=== PATIENT | female | born 1950 | race African-American/Black ===

== ENCOUNTER 2017-01-27 08:24 | Inpatient (IN) | payer MEDICARE, OTHER ==
[~2017-01-27] VITALS: Ht 152.4 cm; Wt 72.6 kg
[~2017-01-27 08:24] MED LIST: AMPI3VIA5 IV; BISA10SU55 RC; FERR324T2 PO; INSU100I13 SQ; LEVO75TA5 PO; MAGN400O4 PO; MELA3TAB PO; METR500T PO; MIRT15TA3 PO; MULT1TAB97 PO; NA P133E2 RC; ONDA-35 PO; OXYC20TA34 PO; OXYC5CAP3 PO; PANT40TA5 PO; SENN-6 PO; ZOLP5TAB5 PO
--- NOTE | 2017-01-27 08:57 | PHYS DOC ---
Past Medical History Past Medical History: Diabetes-Type II, Hypothyroid, MRSA, Other Additional Past Medical Histor: OSTEOMYELITIS,CKD,C-DIFF,DYSPHAGIA Past Surgical History: Knee Replacement, Other Additional Past Surgical Histo: TOE AMPUTATION Alcohol Use: None Drug Use: None Adult General Chief Complaint Chief Complaint: HYPOGLYCEMIA HPI HPI 66-year-old female presents with an episode of altered mental status and hypoglycemia. Glucose in the field was 30 the patient was not responding to sternal rub. Glucagon was given an IV axis cannot be obtained. Upon arrival patient is acutely altered and does not have an IV. Multiple attempts were made and unsuccessful for IV access and so a sternal IO was obtained and a amp of D50 was given. Patient became responsive shortly after this and is now able to answer some questions but does appear somewhat confused as well. Eyes any specific complaints. Patient does have history of renal failure and is a known brittle diabetic that is had recurrent issues controlling her blood sugar. Her lab her nursing facility less than she had no elevated blood glucose in the 400s and was given 8 extra units of her insulin regimen. Review of Systems Review of Systems 10 point review of systems is unable to obtain secondary to underlying mental status. Current Medications Current Medications Current Medications Medications (Trade) Dose Ordered Sig/Alphonse Start Time Stop Time Status Last Admin Dose Admin Dextrose 1,000 ml @ 75 mls/hr 1X ONCE 01/27/17 10:00 01/27/17 23:19 Cancel Dextrose 25 gm 25 gm 1X ONCE 01/27/17 10:00 01/27/17 10:01 DC 01/27/17 10:06 25 GM Dextrose/Sodium Chloride (Iv D5% - 1/2 NS) 1,000 ml @ 125 mls/hr 1X ONCE 01/27/17 10:15 01/27/17 18:14 01/27/17 10:09 125 MLS/HR Allergies Allergies Allergies Coded Allergies Type Severity Reaction Last Updated Verified Sulfa (Sulfonamide Antibiotics) Allergy Intermediate 06/26/16 Yes iodine Allergy Intermediate 06/26/16 Yes codeine Adverse Reaction Intermediate Itching 06/26/16 Yes Physical Exam Physical Exam Constitutional: Confused, altered mental status, no acute distress. [] HENT: Normocephalic, atraumatic, bilateral external ears normal, oropharynx moist, no oral exudates, nose normal. [] Eyes: PERRLA, EOMI, conjunctiva normal, no discharge. [] Neck: Normal range of motion, no tenderness, supple, no stridor. [] Cardiovascular:Heart rate regular rhythm, no murmur [] Lungs & Thorax: Bilateral breath sounds clear to auscultation [] Abdomen: Bowel sounds normal, soft, no tenderness, no masses, no pulsatile masses. [] Skin: Warm, dry, no erythema, no rash. [] Back: No tenderness, no CVA tenderness. [] Extremities: No tenderness, no cyanosis, no clubbing, ROM intact, no edema. [] Neurologic: Alert and oriented X 1 (person), normal motor function, normal sensory function, no focal deficits noted. [] Psychologic: Affect normal, judgement normal, mood normal. [] Current Patient Data Vital Signs Vital Signs Date Time Temp Pulse Resp B/P Pulse Ox O2 Delivery O2 Flow Rate FiO2 01/27/17 08:24 97.4 84 14 150/66 98 Room Air 97.4 Lab Values Laboratory Tests Test 01/27/17 09:30 01/27/17 10:14 White Blood Count 14.5x10^3/uL (4.0-11.0) H Red Blood Count 3.30x10^6/uL (3.50-5.40) L Hemoglobin 9.7g/dL (12.0-15.5) L Hematocrit 31.3% (36.0-47.0) L Mean Corpuscular Volume 95fL (79-100) Mean Corpuscular Hemoglobin 29pg (25-35) Mean Corpuscular Hemoglobin Concent 31g/dL (31-37) Red Cell Distribution Width 13.6% (11.5-14.5) Platelet Count 244x10^3/uL (140-400) Neutrophils (%) (Auto) 89% (31-73) H Lymphocytes (%) (Auto) 6% (24-48) L Monocytes (%) (Auto) 4% (0-9) Eosinophils (%) (Auto) 1% (0-3) Basophils (%) (Auto) 0% (0-3) Neutrophils # (Auto) 12.9x10^3uL (1.8-7.7) H Lymphocytes # (Auto) 0.9x10^3/uL (1.0-4.8) L Monocytes # (Auto) 0.6x10^3/uL (0.0-1.1) Eosinophils # (Auto) 0.1x10^3/uL (0.0-0.7) Basophils # (Auto) 0.1x10^3/uL (0.0-0.2) Platelet Estimate Pending Sodium Level 141mmol/L (136-145) Potassium Level 5.3mmol/L (3.5-5.1) H Chloride Level 109mmol/L (98-107) H Carbon Dioxide Level 23mmol/L (21-32) Anion Gap 9 (6-14) Blood Urea Nitrogen 26mg/dL (7-20) H Creatinine 1.8mg/dL (0.6-1.0) H Estimated GFR (Cockcroft-Gault) 34.3 BUN/Creatinine Ratio 14 (6-20) Glucose Level 93mg/dL (70-99) Calcium Level 8.4mg/dL (8.5-10.1) L Total Bilirubin 0.2mg/dL (0.2-1.0) Aspartate Amino Transferase (AST) 59U/L (15-37) H Alanine Aminotransferase (ALT) 55U/L (14-59) Alkaline Phosphatase 200U/L (46-116) H Troponin I Quantitative 0.041ng/mL (0.000-0.055) Total Protein 6.0g/dL (6.4-8.2) L Albumin 2.3g/dL (3.4-5.0) L Albumin/Globulin Ratio 0.6 (1.0-1.7) L Urine Collection Type U cath Urine Color Yellow Urine Clarity Clear Urine pH 6.0 Urine Specific Elizabeth 1.010 Urine Protein Negativemg/dL (NEG-TRACE) Urine Glucose (UA) Negativemg/dL (NEG) Urine Ketones (Stick) Negativemg/dL (NEG) Urine Blood Small (NEG) Urine Nitrite Positive (NEG) Urine Bilirubin Negative (NEG) Urine Urobilinogen Dipstick 0.2mg/dL (0.2 mg/dL) Urine Leukocyte Esterase Moderate (NEG) Urine RBC 0/HPF (0-2) Urine WBC 20-40/HPF (0-4) Urine Squamous Epithelial Cells Few/LPF Urine Bacteria Many/HPF (0-FEW) Laboratory Tests 01/27/17 09:30 Laboratory Tests 01/27/17 09:30 EKG EKG EKG as interpreted by me shows a sinus rhythm with a leftward axis of approximate rate of 74 bpm. There are no acute findings seen on this EKG. Does not appear to be any signs of overt ischemia. Intervals are normal. There is no ectopy. Radiology/Procedures Radiology/Procedures Portable one view as interpreted by the radiologist demonstrates small inspiration with opacities on the right which may be atelectasis. Course & Med Decision Making Course & Med Decision Making Pertinent Labs and Imaging studies reviewed. (See chart for details) 66 old female who comes in acutely with altered mental status and low blood glucose was given a humeral IO for D50 administration. Her metastases status improved significantly after this. Patient probably does have history of brittle diabetes and episodes of hypoglycemia that have required admission for. We will continue to obtain access on this patient and obtain full laboratory workup. Apparently from the assisted living facility, she has not noted blood glucose last evening and she was given 8 extra units of her and normal insulin regimen which is likely the source of her hypoglycemia. Approximately 30 minutes of critical care time were used on this patient. This 66 old female has a laboratory workup that does show an elevated white count. Her urinalysis does show signs of infections with positive nitrites. Her metabolic panel shows a slightly elevated potassium of 5.3 but there are no EKG changes with this. Her renal function slightly abnormal but she has history of this. Her mental status decreased somewhat once while in the department and a repeat blood sugar was found to be in the 60s. Another amp of D50 was given. Patient wasn't started on D5 half-normal saline at 125 mL an hour. An attempt to transfer the patient to [facility] was ultimately unsuccessful as they had no available isolated beds for her ongoing C. difficile infection. I Indicated this all to the hospitalist, Dr. lopez who agreed to accept the patient for further evaluation and treatment. PICC line team was able to come down to the ER and attempt PICC line. Repeat blood glucose upon admission was in the 150s. Patient was able to successfully drink when she was sent have several bites of a meal. I believe her difficult to control blood glucose levels is related to her ongoing infection in her urine as well as C. difficile and the over calculation of insulin overnight for elevated blood glucose at her living facility. Dragon Disclaimer Dragon Disclaimer This electronic medical record was generated, in whole or in part, using a voice recognition dictation system. Critical Care Time Critical care time was 30 minutes exclusive of procedures. Departure Departure Impression: Primary Impression: Hypoglycemia Additional Impressions: Altered mental state UTI (urinary tract infection) Disposition: ADMITTED INPATIENT Admitting Physician: Su Lopez Condition: STABLE Referrals: TANVI MORILLO (PCP) Problem Qualifiers ABDIFATAH MCDOWELL DO Jan 27, 2017 08:57
[2017-01-27 09:37] LABS: BASO # 0.1 x10^3/uL (0.0-0.2); BASO % 0 % (0-3); EOS % 1 % (0-3); HEMATOCRIT 31.3 % (36.0-47.0); HEMOGLOBIN 9.7 g/dL (12.0-15.5); LYMPH # 0.9 x10^3/uL (1.0-4.8); LYMPH % 6 % (24-48); MEAN CORPUSCULAR HEMOGLOBIN 29 pg (25-35); MEAN CORPUSCULAR HGB CONC 31 g/dL (31-37); MEAN CORPUSCULAR VOLUME 95 fL (79-100); MONO % 4 % (0-9); NEUT % 89 % (31-73); PLATELET COUNT 244 x10^3/uL (140-400); RED CELL DISTRIBUTION WIDTH 13.6 % (11.5-14.5); WHITE BLOOD COUNT 14.5 x10^3/uL (4.0-11.0)
--- NOTE | 2017-01-27 09:44 | RAD ---
EXAM: Chest one view. HISTORY: Altered mental status. COMPARISON: 05/26/2016. FINDINGS: A frontal view of the chest is obtained. The inspiration is small with bibasilar atelectasis. An opacity in the right upper lobe and also be atelectasis. The right hilum is prominent but unchanged, likely a prominent pulmonary artery. There is no pneumothorax or pleural effusion. The heart is not enlarged. The aorta is tortuous. There are postsurgical changes and vertebroplasty changes along the upper abdomen. IMPRESSION: 1. Small inspiration. Opacities on the right may be atelectasis in this setting. Correlate for evidence of infection.
[2017-01-27 09:51] LABS: CALCIUM 8.4 mg/dL (8.5-10.1); CREATININE 1.8 mg/dL (0.6-1.0); GFR 34.3; POTASSIUM 5.3 mmol/L (3.5-5.1)
[2017-01-27 09:57] LABS: ALBUMIN 2.3 g/dL (3.4-5.0); ALBUMIN/GLOBULIN RATIO 0.6 (1.0-1.7); TOTAL BILIRUBIN 0.2 mg/dL (0.2-1.0)
[2017-01-27] MEDS ORDERED: DEXTROSE 50% 25 GM / 50ML DISP.SYRIN. IV ONE (10:00)
[2017-01-27] MEDS ORDERED: IV DEXTROSE 5% 1,000 ML IV ONE (10:00)
[2017-01-27] MEDS ORDERED: IV DEXTROSE 5 %-0.45 % NACL 500 ML IV ONE (10:00)
[2017-01-27] MEDS ORDERED: IV DEXTROSE 5 %-0.45 % NACL 1,000 ML IV ONE (10:15)
[2017-01-27 10:25] LABS: BILIRUBIN,URINE NEGATIVE (NEG); GLUCOSE,URINE NEGATIVE (NEG); NITRITE,URINE POSITIVE (NEG); PROTEIN,URINE NEGATIVE (NEG-TRACE); UROBILINOGEN,URINE 0.2 mg/dL (0.2 mg/dL)
[2017-01-27] MEDS ORDERED: ONDANSETRON PF 4 MG/2 ML VIAL. IV PRN (10:45)
[2017-01-27 10:52] LABS: RBC,URINE 0 /HPF (0-2); WBC,URINE 20-40 /HPF (0-4)
[2017-01-27 10:53] LABS: BACTERIA,URINE MANY /HPF (0-FEW); SQUAMOUS EPITHELIAL CELL,UR FEW /LPF
--- NOTE | 2017-01-27 12:07 | ACF ---
Admission Forms Criteria MENTAL STATUS CHANGE Clinical Indications for Inpatient Care (Place 'X' for any and all applicable criteria): Ongoing inpatient care may be needed for ANY ONE of the following(1)(2)(3)(5)(6) : [X]I. Suspected serious etiology (eg, medical disorder, [employer] event) of mental status change [ ]II. Danger to self or others not manageable at lower level of care [ ]III. Grave disability (eg, inability to perform self care necessary at lower level of care) [ ]IV. Agitation or inappropriate behavior interfering with care for primary condition (eg, attempting to discontinue lines or drains prematurely, unable to cooperate with respiratory care) [ ]V. Delirium [A] [D][E] as described by ANY ONE of the following(26): [ ]a) Delirium due to alcohol or sedative [F] withdrawal [ ]b) Delirium of uncertain etiology that has not responded to appropriate empiric treatment [ ]c) Delirium that prevents performance of a life-sustaining function (eg, feeding or hydrating oneself) [ ]. General contraindications and/or Inappropriate clinical situations for Observational Care in patients with Mental Status Change, when ANY ONE of the following is required: [ ]a) Prediction of prolongation of LOS based on ANY ONE of the following may be considered as a contraindication for observational care 2, 3, 4, 5, 6, 7, 8, 9, 10, 11 [ ]i) Age > 65 yrs. [ ]ii) Patient arriving by ambulance [ ]iii) Patient with high acuity [ ]iv) Patient requiring vital sign monitoring [ ]v) Patient on IV medication [ ]b) Systolic blood pressures 180mmHg 3,12 [ ]c) Patient with altered mental status including delirium and other alteration of consciousness, (3) [ ]d) Patient whose discharge disposition will be to a [facility] home or rehabilitation home should not be managed in Emergency Department Observation Unit. CMS rule requires 3 days hospital stay before such placement.3,13 [ ]e) Patient with failure to thrive due to broad array of etiologies 3,16,17 [ ]f) Inability to ambulate 3,14 Extended stay beyond goal length of stay for the primary condition may be needed until ALL of the following are present(3)(5): [ ]a) Underlying medical etiology of mental status change is absent, or has been established and adequately treated [ ]b) Danger to self or others is absent or manageable at lower level of care. [ ]c) Behavior crisis management, including physical or chemical restraints, is not required or available at lower level of car [ ]d) Substance or alcohol withdrawal is absent or manageable at lower level of care. [ ]e) Behavioral symptoms (eg, agitation, somnolence, inappropriate behavior) are absent, or are manageable at lower level of care. The original [facility] content created by [facility] has been revised. The portions of the content which have been revised are identified through the use of italic text or in bold, and [facility] has neither reviewed nor approved the modified material. All other unmodified content is copyright [facility]. Please see references footnoted in the original [facility] edition 2016 Admission Criteria Met?: Yes MARY ANN CHEN Jan 27, 2017 12:07
--- NOTE | 2017-01-27 12:52 | EKG ---
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
[2017-01-27] MEDS: ACETAMINOPHEN 325 MG TABLET. PO PRN ×2 (13:02→20:53)
[2017-01-27 14:11] LABS: % BASOS 2 % (0-3); PLT ESTIMATE ADEQUATE (ADEQUATE)
[2017-01-27 15:00] VITALS: BP 158/66
[2017-01-27] MEDS ORDERED: MAGNESIUM HYDROXIDE 2,400 MG/30 ML ORAL.SUSP. PO SCH (15:30)
[2017-01-27] MEDS ORDERED: NON FORMULARY ITEM (Melatonin 1 TAB) PO PRN (15:30)
[2017-01-27] MEDS ORDERED: DEXTROSE 50% 25 GM / 50ML DISP.SYRIN. IV PRN (15:30)
[2017-01-27] MEDS ORDERED: NON FORMULARY ITEM (Oxycodone Hcl 1 TAB) PO PRN (15:30)
[2017-01-27] MEDS ORDERED: BISACODYL 10 MG SUPP.RECT RC PRN (15:30)
[2017-01-27] MEDS ORDERED: SENNOSIDES/DOCUSATE 8.6/50MG TABLET. PO PRN (15:30)
[2017-01-27] MEDS ORDERED: GENT30OI2 TP (15:42)
[2017-01-27] MEDS ORDERED: INSU100V13 SQ (15:42)
[2017-01-27] MEDS ORDERED: HYDR-2163 PO (15:42)
[2017-01-27] MEDS ORDERED: INSU100C4 SQ (15:42)
[2017-01-27] MEDS ORDERED: VANC125S PO (15:42)
[2017-01-27] MEDS ORDERED: ACET325T21 PO (15:42)
[2017-01-27] MEDS ORDERED: FURO20TA3 PO (15:42)
[2017-01-27] MEDS ORDERED: ONDANSETRON ODT 4 MG TAB.RAPDIS PO PRN (16:00)
--- NOTE | 2017-01-27 16:02 | PDOC1 ---
History and Physical Date of Admission Date of Admission DATE: 01/27/17 TIME: 15:53 Identification/Chief Complaint Chief Complaint confusion Source Source: Caregiver, Chart review History of Present Illness History of Present Illness Ms. Nugent, is a 66-year-old female admit for new altered mental status and hypoglycemia. EMS brought her from her [facility], [facility] patient, they had no beds, no diversion.mental status improved issue w IV access, IO started in the ER for 1 amp D50 given. Pt complains of pain there. recent c. diff. will need iso, on dual therapy for infection,. she is more awake and alert on the floor, and is eating a grilled cheese sandwich Past Medical History Cardiovascular: HTN, Hyperlipidemia Pulmonary: No pertinent hx CENTRAL NERVOUS SYSTEM: Periperal neuropathy GI: GERD, Other Heme/Onc: Anemia NOS Hepatobiliary: No pertinent hx Psych: Depression Musculoskeletal: low back pain, Osteoarthritis, Swelling Infectious disease: Other Renal/: Chronic renal insuff Endocrine: Diabetes Past Surgical History Past Surgical History: Cholecystectomy, Cataract Removal, Hysterectomy, Other Family History Family History: Family History Unknown Social History Smoke: No ALCOHOL: none Drugs: None Current Problem List Problem List Problems Medical Problems: (1) Altered mental state Status: Acute (2) Hypoglycemia Status: Acute (3) UTI (urinary tract infection) Status: Acute Problems: Current Medications Current Medications Current Medications Dextrose 1,000 ml @ 75 mls/hr 1X ONCE IV ; Start 01/27/17 at 10:00; Stop 01/27 at 23:19; Status Cancel Dextrose 25 gm 25 gm 1X ONCE IV Last administered on 01/27/17 10:06; Start at 10:00; Stop 01/27/17 at 10:01; Status DC Dextrose/Sodium Chloride 500 ml @ 0 mls/hr 1X ONCE IV ; Start 01/27/17 at 10:00 ; Stop 01/27/17 at 10:03; Status DC Dextrose/Sodium Chloride (Iv D5% - 1/2 NS) 1,000 ml @ 125 mls/hr 1X ONCE IV Last administered on 01/27/17 10:09; Start 01/27/17 at 10:15; Stop 01/27/17 at 18:14 Ondansetron HCl (Zofran) 4 mg PRN Q8HRS PRN IV NAUSEA/VOMITING; Start 01/27/17 at 10:45; Stop 01/28/17 at 10:44 Acetaminophen (Tylenol) 650 mg PRN Q4HRS PRN PO FEVER Last administered on 01/27t 13:02; Start 01/27/17 at 10:45; Stop 01/28/17 at 10:44 Insulin Aspart (Novolog) 0-7 UNITS TIDWMEALS SQ ; Start 01/27/17 at 17:00; Stop 01/27/17 at 17:00; Status DC Dextrose 12.5 gm PRN Q15MIN PRN IV SEE COMMENTS; Start 01/27/17 at 15:30 Ampicillin Sodium/ Sulbactam Sodium (Unasyn) 3 gm Q6HRS IV ; Start 01/27/17 at 18:00; Stop 01/27/17 at 18:00; Status DC Bisacodyl (Dulcolax Supp) 10 mg PRN DAILY PRN RC CONSTIPATION; Start 01/27/17 at 15:30; Stop 01/27/17 at 15:52; Status DC Levothyroxine Sodium (Synthroid) 75 mcg DAILY PO ; Start 01/28/17 at 09:00; Stop 01/28/17 at 09:00; Status DC Magnesium Hydroxide (Milk Of Magnesia) 2,400 mg PRN DAILY PO ; Start 01/27/17 at 15:30; Stop 01/27/17 at 15:52; Status DC Metronidazole (Flagyl) 500 mg TID PO ; Start 01/27/17 at 21:00; Stop 01/27/17 at 21:00; Status DC Mirtazapine (Remeron) 15 mg QHS PO ; Start 01/27/17 at 21:00; Stop 01/27/17 at 21:00; Status DC Pantoprazole Sodium (Protonix) 40 mg BID PO ; Start 01/27/17 at 21:00; Stop 11/03 at 21:00; Status DC Senna/Docusate Sodium (Senna Plus) 2 tab Q12HR PRN PO CONSTIPATION; Start 01/27 at 15:30; Stop 01/27/17 at 15:52; Status DC Zolpidem Tartrate (Ambien) 5 mg QHS PO ; Start 01/27/17 at 21:00; Stop 01/27/17 at 21:00; Status DC Non-Formulary Medication 324 mg DAILY PO ; Start 01/28/17 at 09:00; Stop at 09:00; Status DC Non-Formulary Medication 10 unit QHS SQ ; Start 01/27/17 at 21:00; Stop at 21:00; Status DC Non-Formulary Medication 1 tab QHS PRN PO INSOMNIA; Start 01/27/17 at 15:30; Stop 01/27/17 at 15:52; Status DC Non-Formulary Medication 1 each DAILY PO ; Start 01/28/17 at 09:00; Stop at 09:00; Status DC Non-Formulary Medication 1 tab PRN Q6HRS PRN PO NAUSEA/VOMITING; Start at 15:30; Status UNV Non-Formulary Medication 1 tab Q4HRS PRN PO PAIN; Start 01/27/17 at 15:30; Stop 01/27/17 at 15:52; Status DC Non-Formulary Medication 20 mg BID PO ; Start 01/27/17 at 21:00; Stop 01/27/17 at 21:00; Status DC Metronidazole (Flagyl) 500 mg TID PO ; Start 01/27/17 at 15:30; Status UNV Acetaminophen (Tylenol) 650 mg PRN Q4HRS PRN PO PAIN; Start 01/27/17 at 15:45; Status UNV Furosemide (Lasix) 20 mg DAILY PO ; Start 01/28/17 at 09:00; Status UNV Gentamicin Sulfate (Garamycin) 1 sharonda PRN Q8HRS PRN TP SEE COMMENTS; Start 01/27 at 15:45; Status UNV Non-Formulary Medication 1 tab PRN Q4HRS PRN PO PAIN; Start 01/27/17 at 15:45; Status UNV Non-Formulary Medication 250 mg QID PO ; Start 01/27/17 at 17:00; Status UNV Pantoprazole Sodium (Protonix) 40 mg DAILY PO ; Start 01/28/17 at 09:00; Status UNV Active Scripts Active Reported Vancomycin HCl 125 Mg/2.5 Ml Syringe 250 Mg PO QID Novolog (Insulin Aspart) 100 Unit/1 Ml Cartridge 6 Unit SQ TIDBFRMEAL Levemir (Insulin Detemir) 100 Unit/1 Ml Vial 14 Unit SQ HS Furosemide 20 Mg Tablet 20 Mg PO DAILY Hydrocodone-Apap 5-300 (Hydrocodone Bit/Acetaminophen) 1 Each Tablet 1 Tab PO PRN Q4HRS PRN Gentamicin Sulfate 0.1% Oint (Gentamicin Sulfate) 15 Gm Oint...g. 1 Sharonda TP PRN Q8HRS PRN DIRECTED BY PHYSICIAN Acetaminophen 325 Mg Tablet 650 Mg PO PRN Q4HRS PRN Milk Of Magnesia (Magnesium Hydroxide) 400 Mg/5 Ml Oral.susp 30 Ml PO PRN DAILY Ondansetron Hcl 4 Mg Tablet 1 Tab PO PRN Q12HR PRN Pantoprazole Sodium 40 Mg Tablet.dr 1 Tab PO DAILY Flagyl (Metronidazole) 500 Mg Tablet 500 Mg PO TID Allergies Allergies: Coded Allergies: Sulfa (Sulfonamide Antibiotics) (Verified Allergy, Intermediate, 06/26/16) iodine (Verified Allergy, Intermediate, 06/26/16) codeine (Verified Adverse Reaction, Intermediate, Itching, 06/26/16) ROS Review of System right arm pain from IO placed in ER General: YES: Fatigue, No: Appetite, Chills, Malaise, Night Sweats, Other PSYCHOLOGICAL ROS: YES: Memory difficulties, Obsessive thoughts Eyes: No Blurry vision, No Decreased vision, No Double vision, No Dry eyes, No Excessive tearing, No Eye Pain, No Itchy Eyes, No Loss of vision, No Other, No Photophobia, No Scotomata, No Uses contacts, No Uses glasses HEENT: No: Epistaxis, Heacaches, Hearing change, Nasal congestion, Nasal discharge, Oral lesions, Other, Sinus pain, Sneezing, Snoring, Sore Throat, Tinnitus, Vertigo, Visual Changes, Vocal changes Respiratory: No: Cough, Hemoptysis, Orthopnea, Other, Pleuritic Pain, SOB with excertion, Shortness of breath, Sputum Changes, Stridor, Tachypnea, Wheezing Cardiovascular: No Chest Pain, No Edema, No Lt Headedness, No Orthopnea, No Other, No Palpitations, No Paroxysmal Noc. Dyspnea Gastrointestinal: Yes Nausea Genitourinary: No , No , No , No , No , No , No , No Discharge, No Dysuria, No Flank Pain, No Frequency, No Hematuria, No Incontinence, No Other, No Pain, No Retention, No Urgency Musculoskeletal: Yes Joint Pain, Yes Joint Stiffness, No Gait Disturbance, No Joint Swelling, No Muscle Pain, No Muscular Weakness , No Other, No Pain In:, No Swelling In: Neurological: Yes Gait Disturbance, No Behavorial Changes, No Bowel/Bladder ControlChng, No Confusion, No Dizziness, No Headaches, No Impaired Coord/balance, No Memory Loss, No Numbness/ Tingling, No Other, No Seizures, No Speech Problems, No Tremors, No Visual Changes, No Weakness Skin: No Acne, No Dry Skin, No Eczema, No Hair Changes, No Lumps, No Mole Changes, No Mottling, No Nail Changes, No Other, No Pruritus, No Rash, No Skin Lesion Changes Physical Exam General: Alert, mild distress, moderate distress, Other (poorly oriented, follows commands) Lungs: Clear to auscultation, Normal air movement Heart: S1S2, RRR, no murmurs Abdomen: Normal bowel sounds, Soft Rectal Exam: not examined Extremities: No clubbing, Normal pulses Neuro: Normal speech, Normal tone Psych/Mental Status: Other (tangential, upset about right arm pain) Vitals Vitals Vital Signs Date Time Temp Pulse Resp B/P Pulse Ox O2 Delivery O2 Flow Rate FiO2 01/27/17 11:00 66 18 144/67 100 Room Air 01/27/17 08:24 97.4 97.4 Labs Labs Laboratory Tests Test 01/27/17 09:30 01/27/17 10:14 White Blood Count 14.5x10^3/uL (4.0-11.0) Red Blood Count 3.30x10^6/uL (3.50-5.40) Hemoglobin 9.7g/dL (12.0-15.5) Hematocrit 31.3% (36.0-47.0) Mean Corpuscular Volume 95fL (79-100) Mean Corpuscular Hemoglobin 29pg (25-35) Mean Corpuscular Hemoglobin Concent 31g/dL (31-37) Red Cell Distribution Width 13.6% (11.5-14.5) Platelet Count 244x10^3/uL (140-400) Neutrophils (%) (Auto) 89% (31-73) Lymphocytes (%) (Auto) 6% (24-48) Monocytes (%) (Auto) 4% (0-9) Eosinophils (%) (Auto) 1% (0-3) Basophils (%) (Auto) 0% (0-3) Neutrophils # (Auto) 12.9x10^3uL (1.8-7.7) Lymphocytes # (Auto) 0.9x10^3/uL (1.0-4.8) Monocytes # (Auto) 0.6x10^3/uL (0.0-1.1) Eosinophils # (Auto) 0.1x10^3/uL (0.0-0.7) Basophils # (Auto) 0.1x10^3/uL (0.0-0.2) Segmented Neutrophils % 85% (35-66) Lymphocytes % 10% (24-48) Monocytes % 3% (0-10) Basophils % 2% (0-3) Platelet Estimate Adequate (ADEQUATE) Sodium Level 141mmol/L (136-145) Potassium Level 5.3mmol/L (3.5-5.1) Chloride Level 109mmol/L (98-107) Carbon Dioxide Level 23mmol/L (21-32) Anion Gap 9 (6-14) Blood Urea Nitrogen 26mg/dL (7-20) Creatinine 1.8mg/dL (0.6-1.0) Estimated GFR (Cockcroft-Gault) 34.3 BUN/Creatinine Ratio 14 (6-20) Glucose Level 93mg/dL (70-99) Calcium Level 8.4mg/dL (8.5-10.1) Total Bilirubin 0.2mg/dL (0.2-1.0) Aspartate Amino Transf (AST/SGOT) 59U/L (15-37) Alanine Aminotransferase (ALT/SGPT) 55U/L (14-59) Alkaline Phosphatase 200U/L (46-116) Troponin I Quantitative 0.041ng/mL (0.000-0.055) Total Protein 6.0g/dL (6.4-8.2) Albumin 2.3g/dL (3.4-5.0) Albumin/Globulin Ratio 0.6 (1.0-1.7) Urine Collection Type U cath Urine Color Yellow Urine Clarity Clear Urine pH 6.0 Urine Specific Webster 1.010 Urine Protein Negativemg/dL (NEG-TRACE) Urine Glucose (UA) Negativemg/dL (NEG) Urine Ketones (Stick) Negativemg/dL (NEG) Urine Blood Small (NEG) Urine Nitrite Positive (NEG) Urine Bilirubin Negative (NEG) Urine Urobilinogen Dipstick 0.2mg/dL (0.2 mg/dL) Urine Leukocyte Esterase Moderate (NEG) Urine RBC 0/HPF (0-2) Urine WBC 20-40/HPF (0-4) Urine Squamous Epithelial Cells Few/LPF Urine Bacteria Many/HPF (0-FEW) Laboratory Tests Test 01/27/17 09:30 01/27/17 10:14 White Blood Count 14.5x10^3/uL (4.0-11.0) Red Blood Count 3.30x10^6/uL (3.50-5.40) Hemoglobin 9.7g/dL (12.0-15.5) Hematocrit 31.3% (36.0-47.0) Mean Corpuscular Volume 95fL (79-100) Mean Corpuscular Hemoglobin 29pg (25-35) Mean Corpuscular Hemoglobin Concent 31g/dL (31-37) Red Cell Distribution Width 13.6% (11.5-14.5) Platelet Count 244x10^3/uL (140-400) Neutrophils (%) (Auto) 89% (31-73) Lymphocytes (%) (Auto) 6% (24-48) Monocytes (%) (Auto) 4% (0-9) Eosinophils (%) (Auto) 1% (0-3) Basophils (%) (Auto) 0% (0-3) Neutrophils # (Auto) 12.9x10^3uL (1.8-7.7) Lymphocytes # (Auto) 0.9x10^3/uL (1.0-4.8) Monocytes # (Auto) 0.6x10^3/uL (0.0-1.1) Eosinophils # (Auto) 0.1x10^3/uL (0.0-0.7) Basophils # (Auto) 0.1x10^3/uL (0.0-0.2) Segmented Neutrophils % 85% (35-66) Lymphocytes % 10% (24-48) Monocytes % 3% (0-10) Basophils % 2% (0-3) Platelet Estimate Adequate (ADEQUATE) Sodium Level 141mmol/L (136-145) Potassium Level 5.3mmol/L (3.5-5.1) Chloride Level 109mmol/L (98-107) Carbon Dioxide Level 23mmol/L (21-32) Anion Gap 9 (6-14) Blood Urea Nitrogen 26mg/dL (7-20) Creatinine 1.8mg/dL (0.6-1.0) Estimated GFR (Cockcroft-Gault) 34.3 BUN/Creatinine Ratio 14 (6-20) Glucose Level 93mg/dL (70-99) Calcium Level 8.4mg/dL (8.5-10.1) Total Bilirubin 0.2mg/dL (0.2-1.0) Aspartate Amino Transf (AST/SGOT) 59U/L (15-37) Alanine Aminotransferase (ALT/SGPT) 55U/L (14-59) Alkaline Phosphatase 200U/L (46-116) Troponin I Quantitative 0.041ng/mL (0.000-0.055) Total Protein 6.0g/dL (6.4-8.2) Albumin 2.3g/dL (3.4-5.0) Albumin/Globulin Ratio 0.6 (1.0-1.7) Urine Collection Type U cath Urine Color Yellow Urine Clarity Clear Urine pH 6.0 Urine Specific Webster 1.010 Urine Protein Negativemg/dL (NEG-TRACE) Urine Glucose (UA) Negativemg/dL (NEG) Urine Ketones (Stick) Negativemg/dL (NEG) Urine Blood Small (NEG) Urine Nitrite Positive (NEG) Urine Bilirubin Negative (NEG) Urine Urobilinogen Dipstick 0.2mg/dL (0.2 mg/dL) Urine Leukocyte Esterase Moderate (NEG) Urine RBC 0/HPF (0-2) Urine WBC 20-40/HPF (0-4) Urine Squamous Epithelial Cells Few/LPF Urine Bacteria Many/HPF (0-FEW) VTE Prophylaxis Ordered VTE Prophylaxis Devices: No VTE Pharmacological Prophylaxi: Yes Assessment/Plan Assessment/Plan Hypoglycemia altered mental status metabolic encephalopathy Dm2, poor control UTI c. diff colitis, on PO vanc and flagyl, continue, will isolate Severe malnutirtion anemia of CKD, CKD 3 with vasomotor leukocytosis without other SIRS criteria baseline mental status unknown, but may be low, cognitive decline or early dementia better IV access ordered admit > 2 mn family requests transfer to [facility], I have been notified about this X3. No bed available. TIMBO ROLDAN MD Jan 27, 2017 16:02
[2017-01-27] MEDS: HYDROCODONE/APAP 5/325MG TABLET. PO PRN (16:17)
[2017-01-27] MEDS: FUROSEMIDE 20 MG TABLET PO SCH (16:17)
[2017-01-27] MEDS: METRONIDAZOLE 500 MG TABLET. PO SCH ×3 (16:17→21:00)
[2017-01-27] MEDS: CEFTRIAXONE SODIUM 1 GM in IV NORMAL SALINE 50ML 50 ML IV SCH (16:32)
[2017-01-27] MEDS: VANCOMYCIN 250 MG/5 ML ORAL SOLUTION. PO SCH ×2 (16:32→20:50)
[2017-01-27] MEDS: GENTAMICIN 0.1% TOPICAL OINTMENT 15GM TUBE. TP PRN (16:33)
[2017-01-27] MEDS: MORPHINE SULFATE 4 MG/ML DISP.SYRIN. IV PRN (16:52)
[2017-01-27] MEDS ORDERED: INSULIN ASPART 300 UNITS/3 ML INSULN.PEN SQ SCH (17:00)
[2017-01-27] MEDS ORDERED: SULBACTAM IV SCH (18:00)
[2017-01-27] MEDS ORDERED: AMPICILLIN IV SCH (18:00)
[2017-01-27 19:00] VITALS: BP 123/61
[2017-01-27] MEDS: IV DEXTROSE 5 %-0.45 % NACL 1,000 ML IV SCH (20:47)
[2017-01-27] MEDS ORDERED: METRONIDAZOLE 500 MG TABLET. PO SCH (21:00)
[2017-01-27] MEDS ORDERED: ZOLPIDEM 5 MG TABLET. PO SCH (21:00)
[2017-01-27] MEDS ORDERED: NON FORMULARY ITEM (Insulin Glargine,Hum.rec.anlog (Lantus Solostar) 10 UNIT) SQ SCH (21:00)
[2017-01-27] MEDS ORDERED: MIRTAZAPINE 15 MG TABLET PO SCH (21:00)
[2017-01-27] MEDS ORDERED: PANTOPRAZOLE 40 MG TABLET. PO SCH (21:00)
[2017-01-27] MEDS ORDERED: OXYCODONE HCL 20 MG PO SCH (21:00)
[2017-01-27 23:00] VITALS: BP 109/70
[2017-01-28 03:00] VITALS: BP 130/63
[2017-01-28] MEDS: MORPHINE SULFATE 4 MG/ML DISP.SYRIN. IV PRN ×3 (03:55→14:55)
[2017-01-28] MEDS: ACETAMINOPHEN 325 MG TABLET. PO PRN (04:15)
[2017-01-28 07:00] VITALS: BP 156/69
[2017-01-28 07:36] LABS: ALBUMIN 1.9 g/dL (3.4-5.0); ALBUMIN/GLOBULIN RATIO 0.6 (1.0-1.7); CALCIUM 7.6 mg/dL (8.5-10.1); CREATININE 1.6 mg/dL (0.6-1.0); GFR 39.3; TOTAL BILIRUBIN 0.3 mg/dL (0.2-1.0)
[2017-01-28 07:42] LABS: POTASSIUM 5.7 mmol/L (3.5-5.1)
--- NOTE | 2017-01-28 08:38 | PDOC ---
PROGRESS NOTES Chief Complaint Chief Complaint Altered mental status History of Present Illness History of Present Illness No acute events over nigth. Patient remains slightly confused and wishes to go home. Her family is not bedside at this time, if they continue to wish for transfer to [facility] I will be available to help. Vitals Vitals Vital Signs Date Time Temp Pulse Resp B/P Pulse Ox O2 Delivery O2 Flow Rate FiO2 01/28/17 08:12 Room Air 01/28/17 03:00 99.9 88 20 130/63 90 99.9 Physical Exam General: Alert, Cooperative, Other (slightly confused) Heart: Regular rate, No murmurs Lungs: Clear Abdomen: Soft, No tenderness Extremities: No clubbing, No edema Skin: No significant lesion, Other Labs LABS Laboratory Tests Test 01/27/17 09:00 01/27/17 09:30 01/27/17 09:55 01/27/17 10:14 Glucose (Fingerstick) 120mg/dL (70-99) 65mg/dL (70-99) White Blood Count 14.5x10^3/uL (4.0-11.0) Red Blood Count 3.30x10^6/uL (3.50-5.40) Hemoglobin 9.7g/dL (12.0-15.5) Hematocrit 31.3% (36.0-47.0) Mean Corpuscular Volume 95fL (79-100) Mean Corpuscular Hemoglobin 29pg (25-35) Mean Corpuscular Hemoglobin Concent 31g/dL (31-37) Red Cell Distribution Width 13.6% (11.5-14.5) Platelet Count 244x10^3/uL (140-400) Neutrophils (%) (Auto) 89% (31-73) Lymphocytes (%) (Auto) 6% (24-48) Monocytes (%) (Auto) 4% (0-9) Eosinophils (%) (Auto) 1% (0-3) Basophils (%) (Auto) 0% (0-3) Neutrophils # (Auto) 12.9x10^3uL (1.8-7.7) Lymphocytes # (Auto) 0.9x10^3/uL (1.0-4.8) Monocytes # (Auto) 0.6x10^3/uL (0.0-1.1) Eosinophils # (Auto) 0.1x10^3/uL (0.0-0.7) Basophils # (Auto) 0.1x10^3/uL (0.0-0.2) Segmented Neutrophils % 85% (35-66) Lymphocytes % 10% (24-48) Monocytes % 3% (0-10) Basophils % 2% (0-3) Platelet Estimate Adequate (ADEQUATE) Sodium Level 141mmol/L (136-145) Potassium Level 5.3mmol/L (3.5-5.1) Chloride Level 109mmol/L (98-107) Carbon Dioxide Level 23mmol/L (21-32) Anion Gap 9 (6-14) Blood Urea Nitrogen 26mg/dL (7-20) Creatinine 1.8mg/dL (0.6-1.0) Estimated GFR (Cockcroft-Gault) 34.3 BUN/Creatinine Ratio 14 (6-20) Glucose Level 93mg/dL (70-99) Calcium Level 8.4mg/dL (8.5-10.1) Total Bilirubin 0.2mg/dL (0.2-1.0) Aspartate Amino Transf (AST/SGOT) 59U/L (15-37) Alanine Aminotransferase (ALT/SGPT) 55U/L (14-59) Alkaline Phosphatase 200U/L (46-116) Troponin I Quantitative 0.041ng/mL (0.000-0.055) Total Protein 6.0g/dL (6.4-8.2) Albumin 2.3g/dL (3.4-5.0) Albumin/Globulin Ratio 0.6 (1.0-1.7) Urine Collection Type U cath Urine Color Yellow Urine Clarity Clear Urine pH 6.0 Urine Specific [place] 1.010 Urine Protein Negativemg/dL (NEG-TRACE) Urine Glucose (UA) Negativemg/dL (NEG) Urine Ketones (Stick) Negativemg/dL (NEG) Urine Blood Small (NEG) Urine Nitrite Positive (NEG) Urine Bilirubin Negative (NEG) Urine Urobilinogen Dipstick 0.2mg/dL (0.2 mg/dL) Urine Leukocyte Esterase Moderate (NEG) Urine RBC 0/HPF (0-2) Urine WBC 20-40/HPF (0-4) Urine Squamous Epithelial Cells Few/LPF Urine Bacteria Many/HPF (0-FEW) Test 3/12/17 10:34 01/27/17 10:49 01/27/17 13:23 01/27/17 16:38 Glucose (Fingerstick) 136mg/dL (70-99) 152mg/dL (70-99) 100mg/dL (70-99) 105mg/dL (70-99) Test 01/27/17 20:48 01/28/17 03:40 01/28/17 06:59 01/28/17 07:15 Glucose (Fingerstick) 131mg/dL (70-99) 165mg/dL (70-99) 234mg/dL (70-99) Sodium Level 139mmol/L (136-145) Potassium Level 5.7mmol/L (3.5-5.1) Chloride Level 110mmol/L (98-107) Carbon Dioxide Level 22mmol/L (21-32) Anion Gap 7 (6-14) Blood Urea Nitrogen 22mg/dL (7-20) Creatinine 1.6mg/dL (0.6-1.0) Estimated GFR (Cockcroft-Gault) 39.3 BUN/Creatinine Ratio 14 (6-20) Glucose Level 229mg/dL (70-99) Calcium Level 7.6mg/dL (8.5-10.1) Total Bilirubin 0.3mg/dL (0.2-1.0) Aspartate Amino Transf (AST/SGOT) 53U/L (15-37) Alanine Aminotransferase (ALT/SGPT) 43U/L (14-59) Alkaline Phosphatase 162U/L (46-116) Total Protein 5.0g/dL (6.4-8.2) Albumin 1.9g/dL (3.4-5.0) Albumin/Globulin Ratio 0.6 (1.0-1.7) Review of Systems Review of Systems Denies chest pain and shortness of breath. Denies fever or chills. Assessment and Plan Assessmemt and Plan Problems Medical Problems: (1) Altered mental state Status: Acute (2) Hypoglycemia Status: Acute (3) UTI (urinary tract infection) Status: Acute Hypoglycemia Altered mental status Metabolic encephalopathy Dm2, poor control UTI C. diff colitis Severe malnutrition Anemia of CKD Leukocytosis without other SIRS criteria Cognitive decline or early dementia PLAN: Added low intensity sliding scale insulin IO was removed Renal and ID have been consulted, recommendations appreciated Continue gentamicin, ceftriaxone, vanc and flagyl PT/OT to eval and treat Continue to monitor daily labs If family continues to wish for transfer to [facility], I will be happy to aid in transfer. Problems: Comment Review of Relevant I have reviewed the following items yariel (where applicable) has been applied. Labs Laboratory Tests Test 01/27/17 08:29 01/27/17 09:00 01/27/17 09:30 01/27/17 09:55 Glucose (Fingerstick) 40mg/dL (70-99) 120mg/dL (70-99) 65mg/dL (70-99) White Blood Count 14.5x10^3/uL (4.0-11.0) Red Blood Count 3.30x10^6/uL (3.50-5.40) Hemoglobin 9.7g/dL (12.0-15.5) Hematocrit 31.3% (36.0-47.0) Mean Corpuscular Volume 95fL (79-100) Mean Corpuscular Hemoglobin 29pg (25-35) Mean Corpuscular Hemoglobin Concent 31g/dL (31-37) Red Cell Distribution Width 13.6% (11.5-14.5) Platelet Count 244x10^3/uL (140-400) Neutrophils (%) (Auto) 89% (31-73) Lymphocytes (%) (Auto) 6% (24-48) Monocytes (%) (Auto) 4% (0-9) Eosinophils (%) (Auto) 1% (0-3) Basophils (%) (Auto) 0% (0-3) Neutrophils # (Auto) 12.9x10^3uL (1.8-7.7) Lymphocytes # (Auto) 0.9x10^3/uL (1.0-4.8) Monocytes # (Auto) 0.6x10^3/uL (0.0-1.1) Eosinophils # (Auto) 0.1x10^3/uL (0.0-0.7) Basophils # (Auto) 0.1x10^3/uL (0.0-0.2) Segmented Neutrophils % 85% (35-66) Lymphocytes % 10% (24-48) Monocytes % 3% (0-10) Basophils % 2% (0-3) Platelet Estimate Adequate (ADEQUATE) Sodium Level 141mmol/L (136-145) Potassium Level 5.3mmol/L (3.5-5.1) Chloride Level 109mmol/L (98-107) Carbon Dioxide Level 23mmol/L (21-32) Anion Gap 9 (6-14) Blood Urea Nitrogen 26mg/dL (7-20) Creatinine 1.8mg/dL (0.6-1.0) Estimated GFR (Cockcroft-Gault) 34.3 BUN/Creatinine Ratio 14 (6-20) Glucose Level 93mg/dL (70-99) Calcium Level 8.4mg/dL (8.5-10.1) Total Bilirubin 0.2mg/dL (0.2-1.0) Aspartate Amino Transf (AST/SGOT) 59U/L (15-37) Alanine Aminotransferase (ALT/SGPT) 55U/L (14-59) Alkaline Phosphatase 200U/L (46-116) Troponin I Quantitative 0.041ng/mL (0.000-0.055) Total Protein 6.0g/dL (6.4-8.2) Albumin 2.3g/dL (3.4-5.0) Albumin/Globulin Ratio 0.6 (1.0-1.7) Test 01/27/17 10:14 01/27/17 10:34 01/27/17 10:49 01/27/17 13:23 Urine Collection Type U cath Urine Color Yellow Urine Clarity Clear Urine pH 6.0 Urine Specific [place] 1.010 Urine Protein Negativemg/dL (NEG-TRACE) Urine Glucose (UA) Negativemg/dL (NEG) Urine Ketones (Stick) Negativemg/dL (NEG) Urine Blood Small (NEG) Urine Nitrite Positive (NEG) Urine Bilirubin Negative (NEG) Urine Urobilinogen Dipstick 0.2mg/dL (0.2 mg/dL) Urine Leukocyte Esterase Moderate (NEG) Urine RBC 0/HPF (0-2) Urine WBC 20-40/HPF (0-4) Urine Squamous Epithelial Cells Few/LPF Urine Bacteria Many/HPF (0-FEW) Glucose (Fingerstick) 136mg/dL (70-99) 152mg/dL (70-99) 100mg/dL (70-99) Test 01/27/17 16:38 01/27/17 20:48 01/28/17 03:40 01/28/17 06:59 Glucose (Fingerstick) 105mg/dL (70-99) 131mg/dL (70-99) 165mg/dL (70-99) 234mg/dL (70-99) Test 01/28/17 07:15 Sodium Level 139mmol/L (136-145) Potassium Level 5.7mmol/L (3.5-5.1) Chloride Level 110mmol/L (98-107) Carbon Dioxide Level 22mmol/L (21-32) Anion Gap 7 (6-14) Blood Urea Nitrogen 22mg/dL (7-20) Creatinine 1.6mg/dL (0.6-1.0) Estimated GFR (Cockcroft-Gault) 39.3 BUN/Creatinine Ratio 14 (6-20) Glucose Level 229mg/dL (70-99) Calcium Level 7.6mg/dL (8.5-10.1) Total Bilirubin 0.3mg/dL (0.2-1.0) Aspartate Amino Transf (AST/SGOT) 53U/L (15-37) Alanine Aminotransferase (ALT/SGPT) 43U/L (14-59) Alkaline Phosphatase 162U/L (46-116) Total Protein 5.0g/dL (6.4-8.2) Albumin 1.9g/dL (3.4-5.0) Albumin/Globulin Ratio 0.6 (1.0-1.7) Laboratory Tests Test 01/27/17 09:00 01/27/17 09:30 01/27/17 09:55 01/27/17 10:14 Glucose (Fingerstick) 120mg/dL (70-99) 65mg/dL (70-99) White Blood Count 14.5x10^3/uL (4.0-11.0) Red Blood Count 3.30x10^6/uL (3.50-5.40) Hemoglobin 9.7g/dL (12.0-15.5) Hematocrit 31.3% (36.0-47.0) Mean Corpuscular Volume 95fL (79-100) Mean Corpuscular Hemoglobin 29pg (25-35) Mean Corpuscular Hemoglobin Concent 31g/dL (31-37) Red Cell Distribution Width 13.6% (11.5-14.5) Platelet Count 244x10^3/uL (140-400) Neutrophils (%) (Auto) 89% (31-73) Lymphocytes (%) (Auto) 6% (24-48) Monocytes (%) (Auto) 4% (0-9) Eosinophils (%) (Auto) 1% (0-3) Basophils (%) (Auto) 0% (0-3) Neutrophils # (Auto) 12.9x10^3uL (1.8-7.7) Lymphocytes # (Auto) 0.9x10^3/uL (1.0-4.8) Monocytes # (Auto) 0.6x10^3/uL (0.0-1.1) Eosinophils # (Auto) 0.1x10^3/uL (0.0-0.7) Basophils # (Auto) 0.1x10^3/uL (0.0-0.2) Segmented Neutrophils % 85% (35-66) Lymphocytes % 10% (24-48) Monocytes % 3% (0-10) Basophils % 2% (0-3) Platelet Estimate Adequate (ADEQUATE) Sodium Level 141mmol/L (136-145) Potassium Level 5.3mmol/L (3.5-5.1) Chloride Level 109mmol/L (98-107) Carbon Dioxide Level 23mmol/L (21-32) Anion Gap 9 (6-14) Blood Urea Nitrogen 26mg/dL (7-20) Creatinine 1.8mg/dL (0.6-1.0) Estimated GFR (Cockcroft-Gault) 34.3 BUN/Creatinine Ratio 14 (6-20) Glucose Level 93mg/dL (70-99) Calcium Level 8.4mg/dL (8.5-10.1) Total Bilirubin 0.2mg/dL (0.2-1.0) Aspartate Amino Transf (AST/SGOT) 59U/L (15-37) Alanine Aminotransferase (ALT/SGPT) 55U/L (14-59) Alkaline Phosphatase 200U/L (46-116) Troponin I Quantitative 0.041ng/mL (0.000-0.055) Total Protein 6.0g/dL (6.4-8.2) Albumin 2.3g/dL (3.4-5.0) Albumin/Globulin Ratio 0.6 (1.0-1.7) Urine Collection Type U cath Urine Color Yellow Urine Clarity Clear Urine pH 6.0 Urine Specific [place] 1.010 Urine Protein Negativemg/dL (NEG-TRACE) Urine Glucose (UA) Negativemg/dL (NEG) Urine Ketones (Stick) Negativemg/dL (NEG) Urine Blood Small (NEG) Urine Nitrite Positive (NEG) Urine Bilirubin Negative (NEG) Urine Urobilinogen Dipstick 0.2mg/dL (0.2 mg/dL) Urine Leukocyte Esterase Moderate (NEG) Urine RBC 0/HPF (0-2) Urine WBC 20-40/HPF (0-4) Urine Squamous Epithelial Cells Few/LPF Urine Bacteria Many/HPF (0-FEW) Test 01/27/17 10:34 01/27/17 10:49 01/27/17 13:23 01/27/17 16:38 Glucose (Fingerstick) 136mg/dL (70-99) 152mg/dL (70-99) 100mg/dL (70-99) 105mg/dL (70-99) Test 01/27/17 20:48 01/28/17 03:40 01/28/17 06:59 01/28/17 07:15 Glucose (Fingerstick) 131mg/dL (70-99) 165mg/dL (70-99) 234mg/dL (70-99) Sodium Level 139mmol/L (136-145) Potassium Level 5.7mmol/L (3.5-5.1) Chloride Level 110mmol/L (98-107) Carbon Dioxide Level 22mmol/L (21-32) Anion Gap 7 (6-14) Blood Urea Nitrogen 22mg/dL (7-20) Creatinine 1.6mg/dL (0.6-1.0) Estimated GFR (Cockcroft-Gault) 39.3 BUN/Creatinine Ratio 14 (6-20) Glucose Level 229mg/dL (70-99) Calcium Level 7.6mg/dL (8.5-10.1) Total Bilirubin 0.3mg/dL (0.2-1.0) Aspartate Amino Transf (AST/SGOT) 53U/L (15-37) Alanine Aminotransferase (ALT/SGPT) 43U/L (14-59) Alkaline Phosphatase 162U/L (46-116) Total Protein 5.0g/dL (6.4-8.2) Albumin 1.9g/dL (3.4-5.0) Albumin/Globulin Ratio 0.6 (1.0-1.7) Medications Current Medications Dextrose 1,000 ml @ 75 mls/hr 1X ONCE IV ; Start 01/27/17 at 10:00; Stop 01/27 at 23:19; Status Cancel Dextrose 25 gm 25 gm 1X ONCE IV Last administered on 01/27/17 10:06; Start at 10:00; Stop 01/27/17 at 10:01; Status DC Dextrose/Sodium Chloride 500 ml @ 0 mls/hr 1X ONCE IV ; Start 01/27/17 at 10:00 ; Stop 01/27/17 at 10:03; Status DC Dextrose/Sodium Chloride (Iv D5% - 1/2 NS) 1,000 ml @ 125 mls/hr 1X ONCE IV Last administered on 01/27/17 10:09; Start 01/27/17 at 10:15; Stop 01/27/17 at 18:14; Status DC Ondansetron HCl (Zofran) 4 mg PRN Q8HRS PRN IV NAUSEA/VOMITING; Start 01/27/17 at 10:45; Stop 01/28/17 at 10:44 Acetaminophen (Tylenol) 650 mg PRN Q4HRS PRN PO FEVER Last administered on 01/28 04:15; Start 01/27/17 at 10:45; Stop 01/28/17 at 10:44 Insulin Aspart (Novolog) 0-7 UNITS TIDWMEALS SQ ; Start 01/27/17 at 17:00; Stop 01/27/17 at 17:00; Status DC Dextrose 12.5 gm PRN Q15MIN PRN IV SEE COMMENTS; Start 01/27/17 at 15:30 Ampicillin Sodium/ Sulbactam Sodium (Unasyn) 3 gm Q6HRS IV ; Start 01/27/17 at 18:00; Stop 01/27/17 at 18:00; Status DC Bisacodyl (Dulcolax Supp) 10 mg PRN DAILY PRN RC CONSTIPATION; Start 01/27/17 at 15:30; Stop 01/27/17 at 15:52; Status DC Levothyroxine Sodium (Synthroid) 75 mcg DAILY PO ; Start 01/28/17 at 09:00; Stop 01/28/17 at 09:00; Status DC Magnesium Hydroxide (Milk Of Magnesia) 2,400 mg PRN DAILY PO ; Start 01/27/17 at 15:30; Stop 01/27/17 at 15:52; Status DC Metronidazole (Flagyl) 500 mg TID PO ; Start 01/27/17 at 21:00; Stop 01/27/17 at 21:00; Status DC Mirtazapine (Remeron) 15 mg QHS PO ; Start 01/27/17 at 21:00; Stop 01/27/17 at 21:00; Status DC Pantoprazole Sodium (Protonix) 40 mg BID PO ; Start 01/27/17 at 21:00; Stop 11/03 at 21:00; Status DC Senna/Docusate Sodium (Senna Plus) 2 tab Q12HR PRN PO CONSTIPATION; Start 01/27 at 15:30; Stop 01/27/17 at 15:52; Status DC Zolpidem Tartrate (Ambien) 5 mg QHS PO ; Start 01/27/17 at 21:00; Stop 01/27/17 at 21:00; Status DC Non-Formulary Medication 324 mg DAILY PO ; Start 01/28/17 at 09:00; Stop at 09:00; Status DC Non-Formulary Medication 10 unit QHS SQ ; Start 01/27/17 at 21:00; Stop at 21:00; Status DC Non-Formulary Medication 1 tab QHS PRN PO INSOMNIA; Start 01/27/17 at 15:30; Stop 01/27/17 at 15:52; Status DC Non-Formulary Medication 1 each DAILY PO ; Start 01/28/17 at 09:00; Stop at 09:00; Status DC Ondansetron HCl (Zofran Odt) 4 mg PRN Q6HRS PRN PO NAUSEA/VOMITING; Start 01/27 at 16:00 Non-Formulary Medication 1 tab Q4HRS PRN PO PAIN; Start 01/27/17 at 15:30; Stop 01/27/17 at 15:52; Status DC Non-Formulary Medication 20 mg BID PO ; Start 01/27/17 at 21:00; Stop 01/27/17 at 21:00; Status DC Metronidazole (Flagyl) 500 mg TID PO Last administered on 01/27/17 16:17; Start 01/27/17 at 16:30 Acetaminophen (Tylenol) 650 mg PRN Q4HRS PRN PO PAIN; Start 01/27/17 at 15:45 Furosemide (Lasix) 20 mg DAILY PO Last administered on 01/27/17 16:17; Start 01/27/17 at 16:30 Gentamicin Sulfate (Garamycin) 1 sharonda PRN Q8HRS PRN TP . Last administered on 16:33; Start 01/27/17 at 21:00 Acetaminophen/ Hydrocodone Bitart (Lortab 5/325) 1 tab PRN Q4HRS PRN PO PAIN Last administered on 01/27/17 16:17; Start 01/27/17 at 16:00 Vancomycin HCl 250 mg [id number] PO Last administered on 01/27/17 20:50; Start at 17:00 Pantoprazole Sodium 40 mg 40 mg DAILYAC PO ; Start 01/28/17 at 07:30 Ceftriaxone Sodium/Sodium Chloride (Rocephin/Iv Sodium Chloride 0.9% 50ml) 50 ml @ 100 mls/hr Q24H IV Last administered on 01/27/17 16:32; Start 01/27/17 at 17:00 Morphine Sulfate 4 mg PRN Q2HR PRN IV PAIN Last administered on 01/28/17 03:55 ; Start 01/27/17 at 16:15 Oxycodone/ Acetaminophen 1 tab 1 tab PRN Q6HRS PRN PO PAIN; Start 01/27/17 at 16:15 Dextrose/Sodium Chloride (Iv D5% - 1/2 NS) 1,000 ml @ 100 mls/hr Q10H IV Last administered on 01/27/17 20:47; Start 01/28/17 at 02:15 Active Scripts Active Reported Vancomycin HCl 125 Mg/2.5 Ml Syringe 250 Mg PO QID Novolog (Insulin Aspart) 100 Unit/1 Ml Cartridge 6 Unit SQ TIDBFRMEAL Levemir (Insulin Detemir) 100 Unit/1 Ml Vial 14 Unit SQ HS Furosemide 20 Mg Tablet 20 Mg PO DAILY Hydrocodone-Apap 5-300 (Hydrocodone Bit/Acetaminophen) 1 Each Tablet 1 Tab PO PRN Q4HRS PRN Gentamicin Sulfate 0.1% Oint (Gentamicin Sulfate) 15 Gm Oint...g. 1 Sharonda TP PRN Q8HRS PRN DIRECTED BY PHYSICIAN Acetaminophen 325 Mg Tablet 650 Mg PO PRN Q4HRS PRN Milk Of Magnesia (Magnesium Hydroxide) 400 Mg/5 Ml Oral.susp 30 Ml PO PRN DAILY Ondansetron Hcl 4 Mg Tablet 1 Tab PO PRN Q12HR PRN Pantoprazole Sodium 40 Mg Tablet. 1 Tab PO DAILY Flagyl (Metronidazole) 500 Mg Tablet 500 Mg PO TID Vitals/I & O Vital Sign - Last 24 Hours 01/27/17 01/27/17 01/27/17 01/27/17 09:00 09:30 10:00 10:30 Pulse 72 68 64 64 Resp B/P 154/67 141/63 142/73 161/68 Pulse Ox 100 100 100 100 O2 Delivery Room Air Room Air Room Air Room Air 01/27/17 01/27/17 01/27/17 01/27/17 11:00 13:00 15:00 16:17 Temp 97.1 97.1 Pulse 66 68 Resp 18 22 18 B/P 144/67 158/66 Pulse Ox 100 98 98 O2 Delivery Room Air Room Air Room Air Room Air 01/27/17 01/27/17 01/27/17 01/27/17 16:52 19:00 20:00 23:00 Temp 100.9 100.6 100.9 100.6 Pulse 68 85 Resp 18 20 18 B/P 123/61 109/70 Pulse Ox 98 99 97 O2 Delivery Room Air Room Air Room Air Room Air 01/28/17 01/28/17 01/28/17 01/28/17 03:00 03:55 04:25 08:12 Temp 99.9 99.9 Pulse 88 Resp 20 B/P 130/63 Pulse Ox 90 O2 Delivery Room Air Room Air Room Air Room Air Intake and Output 01/27/17 01/27/17 01/28/17 15:00 23:00 07:00 Intake Total 720 ml 260 ml 100 ml Output Total 2 ml Balance 720 ml 258 ml 100 ml [id number] JEFF III DO Jan 28, 2017 08:38
[2017-01-28] MEDS: METRONIDAZOLE 500 MG TABLET. PO SCH ×3 (08:46→20:53)
[2017-01-28] MEDS: FUROSEMIDE 20 MG TABLET PO SCH (08:46)
[2017-01-28] MEDS: PANTOPRAZOLE 40 MG TABLET. PO SCH (08:47)
[2017-01-28] MEDS: VANCOMYCIN 250 MG/5 ML ORAL SOLUTION. PO SCH ×4 (08:49→20:54)
[2017-01-28] MEDS: OXYCODONE/APAP 5/325 TABLET. PO PRN (08:57)
[2017-01-28] MEDS ORDERED: LEVOTHYROXINE 75 MCG TABLET PO SCH (09:00)
[2017-01-28] MEDS ORDERED: MULTIVITAMIN PO SCH (09:00)
[2017-01-28] MEDS ORDERED: FERROUS GLUCONATE 324 MG PO SCH (09:00)
[2017-01-28 09:33] LABS: BASO # 0.1 x10^3/uL (0.0-0.2); BASO % 1 % (0-3); EOS % 4 % (0-3); HEMATOCRIT 30.1 % (36.0-47.0); HEMOGLOBIN 9.8 g/dL (12.0-15.5); LYMPH # 1.5 x10^3/uL (1.0-4.8); LYMPH % 19 % (24-48); MEAN CORPUSCULAR HEMOGLOBIN 30 pg (25-35); MEAN CORPUSCULAR HGB CONC 33 g/dL (31-37); MEAN CORPUSCULAR VOLUME 92 fL (79-100); MONO % 4 % (0-9); NEUT % 73 % (31-73); PLATELET COUNT 246 x10^3/uL (140-400); RED BLOOD COUNT 3.28 x10^6/uL (3.50-5.40); RED CELL DISTRIBUTION WIDTH 13.3 % (11.5-14.5); WHITE BLOOD COUNT 7.6 x10^3/uL (4.0-11.0)
[2017-01-28 11:00] VITALS: BP 140/80
[2017-01-28] MEDS ORDERED: DEXTROSE 50% 25 GM / 50ML DISP.SYRIN. IV PRN (11:00)
--- NOTE | 2017-01-28 11:48 | PDOC2 ---
CONSULT Date of Consult Date of Consult DATE: 01/28/17 TIME: 11:45 Reason for Consult Reason for Consult: [facility] AND HIGH K Referring Physician Referring Physician: JAMAR Identification/Chief Complaint Chief Complaint CONFUSION Source Source: Chart review History of Present Illness Reason for Visit: THIS IS A 66 YR OLD ADMITTED WITH WEAKNESS AND CONFUSION. SHE IS NOTED TO HAVE LOW BG AND CONFUSION. LABS SHOWED MAYNOR AND HIGH K. SHE IS ALSO NOTED TO HAVE AN UTI. CKD STAGE 3 IS NOTED WITH A CR OF 1.3 AT BASELINE Past Medical History Cardiovascular: HTN, Hyperlipidemia Pulmonary: No pertinent hx CENTRAL NERVOUS SYSTEM: Periperal neuropathy GI: GERD, Other Heme/Onc: Anemia NOS Hepatobiliary: No pertinent hx Psych: Depression Musculoskeletal: low back pain, Osteoarthritis, Swelling Infectious disease: Other Renal/: Chronic renal insuff Endocrine: Diabetes Past Surgical History Past Surgical History: Cholecystectomy, Cataract Removal, Hysterectomy, Other Family History Family History: Family History Unknown Social History No ALCOHOL: none Drugs: None Current Problem List Problem List Problems Medical Problems: (1) Altered mental state Status: Acute (2) Hypoglycemia Status: Acute (3) UTI (urinary tract infection) Status: Acute Current Medications Current Medications Current Medications Dextrose 1,000 ml @ 75 mls/hr 1X ONCE IV ; Start 01/27/17 at 10:00; Stop 01/27 at 23:19; Status Cancel Dextrose 25 gm 25 gm 1X ONCE IV Last administered on 01/27/17 10:06; Start at 10:00; Stop 01/27/17 at 10:01; Status DC Dextrose/Sodium Chloride 500 ml @ 0 mls/hr 1X ONCE IV ; Start 01/27/17 at 10:00 ; Stop 01/27/17 at 10:03; Status DC Dextrose/Sodium Chloride (Iv D5% - 1/2 NS) 1,000 ml @ 125 mls/hr 1X ONCE IV Last administered on 01/27/17 10:09; Start 01/27/17 at 10:15; Stop 01/27/17 at 18:14; Status DC Ondansetron HCl (Zofran) 4 mg PRN Q8HRS PRN IV NAUSEA/VOMITING; Start 01/27/17 at 10:45; Stop 01/28/17 at 10:44; Status DC Acetaminophen (Tylenol) 650 mg PRN Q4HRS PRN PO FEVER Last administered on 01/28t 04:15; Start 01/27/17 at 10:45; Stop 01/28/17 at 10:44; Status DC Insulin Aspart (Novolog) 0-7 UNITS TIDWMEALS SQ ; Start 01/27/17 at 17:00; Stop 01/27/17 at 17:00; Status DC Dextrose 12.5 gm PRN Q15MIN PRN IV SEE COMMENTS; Start 01/27/17 at 15:30 Ampicillin Sodium/ Sulbactam Sodium (Unasyn) 3 gm Q6HRS IV ; Start 01/27/17 at 18:00; Stop 01/27/17 at 18:00; Status DC Bisacodyl (Dulcolax Supp) 10 mg PRN DAILY PRN RC CONSTIPATION; Start 01/27/17 at 15:30; Stop 01/27/17 at 15:52; Status DC Levothyroxine Sodium (Synthroid) 75 mcg DAILY PO ; Start 01/28/17 at 09:00; Stop 01/28/17 at 09:00; Status DC Magnesium Hydroxide (Milk Of Magnesia) 2,400 mg PRN DAILY PO ; Start 01/27/17 at 15:30; Stop 01/27/17 at 15:52; Status DC Metronidazole (Flagyl) 500 mg TID PO ; Start 01/27/17 at 21:00; Stop 01/27/17 at 21:00; Status DC Mirtazapine (Remeron) 15 mg QHS PO ; Start 01/27/17 at 21:00; Stop 01/27/17 at 21:00; Status DC Pantoprazole Sodium (Protonix) 40 mg BID PO ; Start 01/27/17 at 21:00; Stop 11/03 at 21:00; Status DC Senna/Docusate Sodium (Senna Plus) 2 tab Q12HR PRN PO CONSTIPATION; Start 01/27 at 15:30; Stop 01/27/17 at 15:52; Status DC Zolpidem Tartrate (Ambien) 5 mg QHS PO ; Start 01/27/17 at 21:00; Stop 01/27/17 at 21:00; Status DC Non-Formulary Medication 324 mg DAILY PO ; Start 01/28/17 at 09:00; Stop at 09:00; Status DC Non-Formulary Medication 10 unit QHS SQ ; Start 01/27/17 at 21:00; Stop at 21:00; Status DC Non-Formulary Medication 1 tab QHS PRN PO INSOMNIA; Start 01/27/17 at 15:30; Stop 01/27/17 at 15:52; Status DC Non-Formulary Medication 1 each DAILY PO ; Start 01/28/17 at 09:00; Stop at 09:00; Status DC Ondansetron HCl (Zofran Odt) 4 mg PRN Q6HRS PRN PO NAUSEA/VOMITING; Start 01/27 at 16:00 Non-Formulary Medication 1 tab Q4HRS PRN PO PAIN; Start 01/27/17 at 15:30; Stop 01/27/17 at 15:52; Status DC Non-Formulary Medication 20 mg BID PO ; Start 01/27/17 at 21:00; Stop 01/27/17 at 21:00; Status DC Metronidazole (Flagyl) 500 mg TID PO Last administered on 01/28/17 08:46; Start 01/27/17 at 16:30 Acetaminophen (Tylenol) 650 mg PRN Q4HRS PRN PO PAIN; Start 01/27/17 at 15:45 Furosemide (Lasix) 20 mg DAILY PO Last administered on 01/28/17 08:46; Start 01/27/17 at 16:30 Gentamicin Sulfate (Garamycin) 1 sharonda PRN Q8HRS PRN TP . Last administered on 16:33; Start 01/27/17 at 21:00 Acetaminophen/ Hydrocodone Bitart (Lortab 5/325) 1 tab PRN Q4HRS PRN PO PAIN Last administered on 01/27/17 16:17; Start 01/27/17 at 16:00 Vancomycin HCl 250 mg [id number] PO Last administered on 01/28/17 08:49; Start at 17:00 Pantoprazole Sodium 40 mg 40 mg DAILYAC PO Last administered on 01/28/17 08:47 ; Start 01/28/17 at 07:30 Ceftriaxone Sodium/Sodium Chloride (Rocephin/Iv Sodium Chloride 0.9% 50ml) 50 ml @ 100 mls/hr Q24H IV Last administered on 01/27/17 16:32; Start 01/27/17 at 17:00 Morphine Sulfate 4 mg PRN Q2HR PRN IV PAIN Last administered on 01/28/17 03:55 ; Start 01/27/17 at 16:15 Oxycodone/ Acetaminophen 1 tab 1 tab PRN Q6HRS PRN PO PAIN Last administered on 01/28/17 08:57; Start 01/27/17 at 16:15 Dextrose/Sodium Chloride (Iv D5% - 1/2 NS) 1,000 ml @ 100 mls/hr Q10H IV Last administered on 01/27/17 20:47; Start 01/28/17 at 02:15 Insulin Aspart (Novolog) 0-5 UNITS TIDWMEALS SQ ; Start 01/28/17 at 12:00 Dextrose 12.5 gm PRN Q15MIN PRN IV SEE COMMENTS; Start 01/28/17 at 11:00; Status UNV Active Scripts Active Reported Vancomycin HCl 125 Mg/2.5 Ml Syringe 250 Mg PO QID Novolog (Insulin Aspart) 100 Unit/1 Ml Cartridge 6 Unit SQ TIDBFRMEAL Levemir (Insulin Detemir) 100 Unit/1 Ml Vial 14 Unit SQ HS Furosemide 20 Mg Tablet 20 Mg PO DAILY Hydrocodone-Apap 5-300 (Hydrocodone Bit/Acetaminophen) 1 Each Tablet 1 Tab PO PRN Q4HRS PRN Gentamicin Sulfate 0.1% Oint (Gentamicin Sulfate) 15 Gm Oint...g. 1 Sharonda TP PRN Q8HRS PRN DIRECTED BY PHYSICIAN Acetaminophen 325 Mg Tablet 650 Mg PO PRN Q4HRS PRN Milk Of Magnesia (Magnesium Hydroxide) 400 Mg/5 Ml Oral.susp 30 Ml PO PRN DAILY Ondansetron Hcl 4 Mg Tablet 1 Tab PO PRN Q12HR PRN Pantoprazole Sodium 40 Mg Tablet.dr 1 Tab PO DAILY Flagyl (Metronidazole) 500 Mg Tablet 500 Mg PO TID Allergies Allergies: Coded Allergies: Sulfa (Sulfonamide Antibiotics) (Verified Allergy, Intermediate, 06/26/16) iodine (Verified Allergy, Intermediate, 06/26/16) codeine (Verified Adverse Reaction, Intermediate, Itching, 06/26/16) ROS Review of System CONFUSED Physical Exam General: Alert, Cooperative HEENT: Atraumatic, PERRLA Heart: Regular rate, Normal S1, Normal S2 Abdomen: Normal bowel sounds, Soft Extremities: No clubbing Skin: No rashes Neuro: Other (CONFUSED) Psych/Mental Status: Other (CONFUSED) MUSCULOSKELETAL: No deformity Vitals VITALS Vital Signs Date Time Temp Pulse Resp B/P Pulse Ox O2 Delivery O2 Flow Rate FiO2 01/28/17 08:12 Room Air 01/28/17 07:00 97.2 78 20 156/69 97 97.2 Labs Labs Laboratory Tests Test 01/27/17 08:29 01/27/17 09:00 01/27/17 09:30 01/27/17 09:55 Glucose (Fingerstick) 40mg/dL (70-99) 120mg/dL (70-99) 65mg/dL (70-99) White Blood Count 14.5x10^3/uL (4.0-11.0) Red Blood Count 3.30x10^6/uL (3.50-5.40) Hemoglobin 9.7g/dL (12.0-15.5) Hematocrit 31.3% (36.0-47.0) Mean Corpuscular Volume 95fL (79-100) Mean Corpuscular Hemoglobin 29pg (25-35) Mean Corpuscular Hemoglobin Concent 31g/dL (31-37) Red Cell Distribution Width 13.6% (11.5-14.5) Platelet Count 244x10^3/uL (140-400) Neutrophils (%) (Auto) 89% (31-73) Lymphocytes (%) (Auto) 6% (24-48) Monocytes (%) (Auto) 4% (0-9) Eosinophils (%) (Auto) 1% (0-3) Basophils (%) (Auto) 0% (0-3) Neutrophils # (Auto) 12.9x10^3uL (1.8-7.7) Lymphocytes # (Auto) 0.9x10^3/uL (1.0-4.8) Monocytes # (Auto) 0.6x10^3/uL (0.0-1.1) Eosinophils # (Auto) 0.1x10^3/uL (0.0-0.7) Basophils # (Auto) 0.1x10^3/uL (0.0-0.2) Segmented Neutrophils % 85% (35-66) Lymphocytes % 10% (24-48) Monocytes % 3% (0-10) Basophils % 2% (0-3) Platelet Estimate Adequate (ADEQUATE) Sodium Level 141mmol/L (136-145) Potassium Level 5.3mmol/L (3.5-5.1) Chloride Level 109mmol/L (98-107) Carbon Dioxide Level 23mmol/L (21-32) Anion Gap 9 (6-14) Blood Urea Nitrogen 26mg/dL (7-20) Creatinine 1.8mg/dL (0.6-1.0) Estimated GFR (Cockcroft-Gault) 34.3 BUN/Creatinine Ratio 14 (6-20) Glucose Level 93mg/dL (70-99) Calcium Level 8.4mg/dL (8.5-10.1) Total Bilirubin 0.2mg/dL (0.2-1.0) Aspartate Amino Transf (AST/SGOT) 59U/L (15-37) Alanine Aminotransferase (ALT/SGPT) 55U/L (14-59) Alkaline Phosphatase 200U/L (46-116) Troponin I Quantitative 0.041ng/mL (0.000-0.055) Total Protein 6.0g/dL (6.4-8.2) Albumin 2.3g/dL (3.4-5.0) Albumin/Globulin Ratio 0.6 (1.0-1.7) Test 01/27/17 10:14 01/27/17 10:34 01/27/17 10:49 01/27/17 13:23 Urine Collection Type U cath Urine Color Yellow Urine Clarity Clear Urine pH 6.0 Urine Specific [place] 1.010 Urine Protein Negativemg/dL (NEG-TRACE) Urine Glucose (UA) Negativemg/dL (NEG) Urine Ketones (Stick) Negativemg/dL (NEG) Urine Blood Small (NEG) Urine Nitrite Positive (NEG) Urine Bilirubin Negative (NEG) Urine Urobilinogen Dipstick 0.2mg/dL (0.2 mg/dL) Urine Leukocyte Esterase Moderate (NEG) Urine RBC 0/HPF (0-2) Urine WBC 20-40/HPF (0-4) Urine Squamous Epithelial Cells Few/LPF Urine Bacteria Many/HPF (0-FEW) Glucose (Fingerstick) 136mg/dL (70-99) 152mg/dL (70-99) 100mg/dL (70-99) Test 01/27/17 16:38 01/27/17 20:48 01/28/17 03:40 01/28/17 06:59 Glucose (Fingerstick) 105mg/dL (70-99) 131mg/dL (70-99) 165mg/dL (70-99) 234mg/dL (70-99) Test 01/28/17 07:15 01/28/17 09:20 01/28/17 10:54 Sodium Level 139mmol/L (136-145) Potassium Level 5.7mmol/L (3.5-5.1) Chloride Level 110mmol/L (98-107) Carbon Dioxide Level 22mmol/L (21-32) Anion Gap 7 (6-14) Blood Urea Nitrogen 22mg/dL (7-20) Creatinine 1.6mg/dL (0.6-1.0) Estimated GFR (Cockcroft-Gault) 39.3 BUN/Creatinine Ratio 14 (6-20) Glucose Level 229mg/dL (70-99) Calcium Level 7.6mg/dL (8.5-10.1) Total Bilirubin 0.3mg/dL (0.2-1.0) Aspartate Amino Transf (AST/SGOT) 53U/L (15-37) Alanine Aminotransferase (ALT/SGPT) 43U/L (14-59) Alkaline Phosphatase 162U/L (46-116) Total Protein 5.0g/dL (6.4-8.2) Albumin 1.9g/dL (3.4-5.0) Albumin/Globulin Ratio 0.6 (1.0-1.7) White Blood Count 7.6x10^3/uL (4.0-11.0) Red Blood Count 3.28x10^6/uL (3.50-5.40) Hemoglobin 9.8g/dL (12.0-15.5) Hematocrit 30.1% (36.0-47.0) Mean Corpuscular Volume 92fL (79-100) Mean Corpuscular Hemoglobin 30pg (25-35) Mean Corpuscular Hemoglobin Concent 33g/dL (31-37) Red Cell Distribution Width 13.3% (11.5-14.5) Platelet Count 246x10^3/uL (140-400) Neutrophils (%) (Auto) 73% (31-73) Lymphocytes (%) (Auto) 19% (24-48) Monocytes (%) (Auto) 4% (0-9) Eosinophils (%) (Auto) 4% (0-3) Basophils (%) (Auto) 1% (0-3) Neutrophils # (Auto) 5.6x10^3uL (1.8-7.7) Lymphocytes # (Auto) 1.5x10^3/uL (1.0-4.8) Monocytes # (Auto) 0.3x10^3/uL (0.0-1.1) Eosinophils # (Auto) 0.3x10^3/uL (0.0-0.7) Basophils # (Auto) 0.1x10^3/uL (0.0-0.2) Glucose (Fingerstick) 267mg/dL (70-99) Laboratory Tests Test 01/27/17 13:23 01/27/17 16:38 01/27/17 20:48 01/28/17 03:40 Glucose (Fingerstick) 100mg/dL (70-99) 105mg/dL (70-99) 131mg/dL (70-99) 165mg/dL (70-99) Test 01/28/17 06:59 01/28/17 07:15 01/28/17 09:20 01/28/17 10:54 Glucose (Fingerstick) 234mg/dL (70-99) 267mg/dL (70-99) Sodium Level 139mmol/L (136-145) Potassium Level 5.7mmol/L (3.5-5.1) Chloride Level 110mmol/L (98-107) Carbon Dioxide Level 22mmol/L (21-32) Anion Gap 7 (6-14) Blood Urea Nitrogen 22mg/dL (7-20) Creatinine 1.6mg/dL (0.6-1.0) Estimated GFR (Cockcroft-Gault) 39.3 BUN/Creatinine Ratio 14 (6-20) Glucose Level 229mg/dL (70-99) Calcium Level 7.6mg/dL (8.5-10.1) Total Bilirubin 0.3mg/dL (0.2-1.0) Aspartate Amino Transf (AST/SGOT) 53U/L (15-37) Alanine Aminotransferase (ALT/SGPT) 43U/L (14-59) Alkaline Phosphatase 162U/L (46-116) Total Protein 5.0g/dL (6.4-8.2) Albumin 1.9g/dL (3.4-5.0) Albumin/Globulin Ratio 0.6 (1.0-1.7) White Blood Count 7.6x10^3/uL (4.0-11.0) Red Blood Count 3.28x10^6/uL (3.50-5.40) Hemoglobin 9.8g/dL (12.0-15.5) Hematocrit 30.1% (36.0-47.0) Mean Corpuscular Volume 92fL (79-100) Mean Corpuscular Hemoglobin 30pg (25-35) Mean Corpuscular Hemoglobin Concent 33g/dL (31-37) Red Cell Distribution Width 13.3% (11.5-14.5) Platelet Count 246x10^3/uL (140-400) Neutrophils (%) (Auto) 73% (31-73) Lymphocytes (%) (Auto) 19% (24-48) Monocytes (%) (Auto) 4% (0-9) Eosinophils (%) (Auto) 4% (0-3) Basophils (%) (Auto) 1% (0-3) Neutrophils # (Auto) 5.6x10^3uL (1.8-7.7) Lymphocytes # (Auto) 1.5x10^3/uL (1.0-4.8) Monocytes # (Auto) 0.3x10^3/uL (0.0-1.1) Eosinophils # (Auto) 0.3x10^3/uL (0.0-0.7) Basophils # (Auto) 0.1x10^3/uL (0.0-0.2) Assessment/Plan Assessment/Plan IMP CKD STAGE 3 WITH CR OF 1.3 AT BASELINE MAYNOR WITH CR OF 1.8 HYPERKALEMIA HYPOGLYCEMIA MET ENCEPHALOPATHY UTI ANEMIA PLAN IVF'S ANTIBIOTICS WILL FOLLOW LABS IN DANE MARTINES MD Jan 28, 2017 11:48
[2017-01-28] MEDS: IV DEXTROSE 5 %-0.45 % NACL 1,000 ML IV SCH (11:58)
[2017-01-28] MEDS: HYDROCODONE/APAP 5/325MG TABLET. PO PRN ×3 (11:59→22:05)
[2017-01-28] MEDS: INSULIN ASPART 300 UNITS/3 ML INSULN.PEN SQ SCH ×2 (12:03→17:26)
--- NOTE | 2017-01-28 12:07 | PDOC ---
Infectious Disease Note ROS ROS GEN: Denies fevers, chills, sweats HEENT: Denies blurred vision, sore throat CV: Denies chest pain RESP: Denies shortness of air, cough GI: Denies n/v/d NEURO: Denies confusion, dizziness MSK: Denies weakness, joint pain/swelling Vital Sign Vital Signs Vital Signs Date Time Temp Pulse Resp B/P Pulse Ox O2 Delivery O2 Flow Rate FiO2 01/28/17 08:12 Room Air 01/28/17 07:00 97.2 78 20 156/69 97 97.2 Physical Exam PHYSICAL EXAM GENERAL: NAD, Alert HEENT: PERRL, OC/OP NECK: Supple, no JVD, no LN LUNGS: Clear HEART: S1S2, no gallop, no murmur ABD: Soft, NT, no organomegaly, no rebound EXT: No edema, no cyanosis IRONER HAND: Alert, oriented x 3, no focal neurologic deficit SKIN: No rash IV: ok Labs Lab Laboratory Tests Test 01/27/17 13:23 01/27/17 16:38 01/27/17 20:48 01/28/17 03:40 Glucose (Fingerstick) 100mg/dL (70-99) 105mg/dL (70-99) 131mg/dL (70-99) 165mg/dL (70-99) Test 01/28/17 06:59 01/28/17 07:15 01/28/17 09:20 01/28/17 10:54 Glucose (Fingerstick) 234mg/dL (70-99) 267mg/dL (70-99) Sodium Level 139mmol/L (136-145) Potassium Level 5.7mmol/L (3.5-5.1) Chloride Level 110mmol/L (98-107) Carbon Dioxide Level 22mmol/L (21-32) Anion Gap 7 (6-14) Blood Urea Nitrogen 22mg/dL (7-20) Creatinine 1.6mg/dL (0.6-1.0) Estimated GFR (Cockcroft-Gault) 39.3 BUN/Creatinine Ratio 14 (6-20) Glucose Level 229mg/dL (70-99) Calcium Level 7.6mg/dL (8.5-10.1) Total Bilirubin 0.3mg/dL (0.2-1.0) Aspartate Amino Transf (AST/SGOT) 53U/L (15-37) Alanine Aminotransferase (ALT/SGPT) 43U/L (14-59) Alkaline Phosphatase 162U/L (46-116) Total Protein 5.0g/dL (6.4-8.2) Albumin 1.9g/dL (3.4-5.0) Albumin/Globulin Ratio 0.6 (1.0-1.7) White Blood Count 7.6x10^3/uL (4.0-11.0) Red Blood Count 3.28x10^6/uL (3.50-5.40) Hemoglobin 9.8g/dL (12.0-15.5) Hematocrit 30.1% (36.0-47.0) Mean Corpuscular Volume 92fL (79-100) Mean Corpuscular Hemoglobin 30pg (25-35) Mean Corpuscular Hemoglobin Concent 33g/dL (31-37) Red Cell Distribution Width 13.3% (11.5-14.5) Platelet Count 246x10^3/uL (140-400) Neutrophils (%) (Auto) 73% (31-73) Lymphocytes (%) (Auto) 19% (24-48) Monocytes (%) (Auto) 4% (0-9) Eosinophils (%) (Auto) 4% (0-3) Basophils (%) (Auto) 1% (0-3) Neutrophils # (Auto) 5.6x10^3uL (1.8-7.7) Lymphocytes # (Auto) 1.5x10^3/uL (1.0-4.8) Monocytes # (Auto) 0.3x10^3/uL (0.0-1.1) Eosinophils # (Auto) 0.3x10^3/uL (0.0-0.7) Basophils # (Auto) 0.1x10^3/uL (0.0-0.2) Objective Assessment Fever Hypoglycemia ? UTI with symptoms but ? contaminated UA Sulfa allergy ? reaction Heel and buttock wounds not observed as she is planning to go to did not to be disturbed Plan Plan of Care Cont Po vanc and Flagyl (may be beneficial for wounds?) Cont Rocephin F/u labs and cults Await I transfer D/w daughter # [id number] CODY WRIGHT MD Jan 28, 2017 12:07
[2017-01-28] MEDS ORDERED: LIDOCAINE 1% / SOD BICARB 8.4% 20 ML VIAL. IJ ONE ×2 (13:49→14:15)
--- NOTE | 2017-01-28 14:49 | PDOC ---
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 No IV access. Image guided Picc insertion requested. Post-Procedure Diagnosis Post-Procedure Diagnosis Same Procedure Performed Procedure Performed Sono/fluoro guided Power Picc insertion Type of Anesthesia Type of Anesthesia Local Estimated Blood Loss EBL: Minimal Drain/Tubes Drains/Tubes 5F 2L 40cm left brachial vein Power Line Condition of Patient Condition of Patient No change. No apparent complication. Disposition Disposition From IR return to [facility]. OK to use Power Picc. Full report to follow. ABRAHAN MORELAND MD Jan 28, 2017 14:49
[2017-01-28 15:00] VITALS: BP 115/70
[2017-01-28] MEDS: CEFTRIAXONE SODIUM 1 GM in IV NORMAL SALINE 50ML 50 ML IV SCH (16:31)
[2017-01-28] MEDS ORDERED: INSULIN ASPART 300 UNITS/3 ML INSULN.PEN SQ ONE (17:00)
[2017-01-28 19:00] VITALS: BP 145/46
[2017-01-28 23:00] VITALS: BP 104/58
[2017-01-29] VITALS (11 sets, daily range): BP systolic 115–146; BP diastolic 39–91
[2017-01-29] MEDS: MORPHINE SULFATE 4 MG/ML DISP.SYRIN. IV PRN ×5 (01:22→17:23)
[2017-01-29 05:50] LABS: BASO # 0.1 x10^3/uL (0.0-0.2); BASO % 2 % (0-3); EOS % 5 % (0-3); HEMATOCRIT 24.3 % (36.0-47.0); HEMOGLOBIN 7.9 g/dL (12.0-15.5); LYMPH # 1.4 x10^3/uL (1.0-4.8); LYMPH % 20 % (24-48); MEAN CORPUSCULAR HEMOGLOBIN 30 pg (25-35); MEAN CORPUSCULAR HGB CONC 33 g/dL (31-37); MEAN CORPUSCULAR VOLUME 93 fL (79-100); MONO % 9 % (0-9); NEUT % 64 % (31-73); PLATELET COUNT 194 x10^3/uL (140-400); RED BLOOD COUNT 2.62 x10^6/uL (3.50-5.40); RED CELL DISTRIBUTION WIDTH 13.5 % (11.5-14.5); WHITE BLOOD COUNT 7.1 x10^3/uL (4.0-11.0)
--- NOTE | 2017-01-29 05:52 | CONS ---
DATE OF CONSULTATION: 01/28/2017 LOCATION: The patient's room is 574. REQUESTING PHYSICIAN: Dr. Villa. REASON FOR CONSULTATION: UTI and C. diff. HISTORY OF PRESENT ILLNESS: The patient is a 66-year-old -[place] female with a history of diabetes and is undergoing care for bilateral heel and buttock wounds. She is cared for at . Apparently, she has been recently treated for C. diff colitis, but was brought to [facility] on 01/27/2017 secondary to altered mental status and hypoglycemia. She was found to have a glucose of 30. According to the notes, she did ____ not respond to sternal rub. On arrival, white blood cell count was 14.5 with 85% segs. In addition, she has been running low-grade temps as high as 100.9 axillary. Urinalysis was obtained, is somewhat suspicious, although she had a few squamous cells. It is possible she could have a UTI. She has been complaining of increased frequency, urgency as well as odor. Currently, she is lying comfortable. She and her daughter are hoping to be transferred to , feels better. Denies any fevers or chills. Her pain is controlled. No cramps or bloating. No current dysuria. PAST MEDICAL HISTORY: Positive for hypertension, hyperlipidemia, peripheral neuropathy, diabetes, depression, low back pain, chronic renal insufficiency, the above-mentioned C. diff colitis as well as her wounds. PAST SURGICAL HISTORY: Positive for cholecystectomy, cataract removal, hysterectomy and reports of previous toe amputations. REVIEW OF SYSTEMS: Otherwise negative. ALLERGIES: LISTED SULFA, BUT SHE CANNOT REMEMBER WHAT HAPPENS WHEN SHE TAKES THESE. SOCIAL HISTORY: No alcohol or drugs. FAMILY HISTORY: Noncontributory. CURRENT MEDICATIONS: Include Flagyl, oral vancomycin, Rocephin, topical gentamicin, Protonix, Ambien. Other meds are available and have been reviewed in the chart. PHYSICAL EXAMINATION: VITAL SIGNS: T-max is 100.9, currently 97.2, pulse 78, respirations 20, blood pressure 156/69. CONSTITUTIONAL: She is alert. She is in no acute distress. HEENT: Pupils are equal and reactive. NECK: Without JVD. LUNGS: Clear to auscultation. HEART: S1, S2. ABDOMEN: Obese, soft, nontender, nondistended, with positive bowel sounds. EXTREMITIES: No clubbing, cyanosis. They are heavily bandaged. SKIN: Warm to touch without signs of rash. NEUROLOGIC: She moved all extremities, was somewhat forgetful. PSYCHIATRIC: Affect was flat. LABORATORY DATA: White count 7.6, hemoglobin 9.8, platelets of 246 with a normal differential. Creatinine of 1.6, glucose 267. Cultures are pending. Chest x-ray did not have any acute process. IMPRESSION: 1. Fever. 2. Hypoglycemia. 3. Questionable urinary tract infection with symptoms, but questionable contaminated urinalysis as well. 4. Sulfa allergy, but she cannot remember the reaction. 5. Heel and buttock wounds, not observed as she is planning to go to and did not want to be disturbed. RECOMMENDATIONS: For now, continue the p.o. vancomycin as well as the Flagyl. Flagyl may be beneficial for her wounds. We will continue Rocephin. Follow up on labs and cultures. Await transfer. This was discussed with her daughter. Thank you for allowing me to participate in this patient's care. If you have any questions, please do not hesitate to contact me. CODY WRIGHT MD DR: SAVI/willie JOB#: [id number] / [id number]
[2017-01-29] MEDS: PANTOPRAZOLE 40 MG TABLET. PO SCH (05:59)
[2017-01-29 06:02] LABS: CALCIUM 7.7 mg/dL (8.5-10.1); CREATININE 1.4 mg/dL (0.6-1.0); GFR 45.8
[2017-01-29 06:03] LABS: POTASSIUM 5.3 mmol/L (3.5-5.1)
--- NOTE | 2017-01-29 06:47 | RAD ---
Ultrasound and fluoro guided power PICC placement Indication: 66-year-old diabetic female with encephalopathy, fever, heel and buttock wounds, and no peripheral IV access. Image guided PICC insertion has been requested for IV antibiotics. Fluoro time: 0.9 minutes Kerma-Area Product: 2 Gycm2 Anesthesia: Local only Sterility: All elements of maximal sterile barrier technique were utilized, including cap, mask, sterile gown, sterile gloves, large sterile sheet, appropriate hand hygiene, and 2% chlorhexidine for cutaneous antisepsis Procedure: Informed consent was obtained from the patient's daughter. She was placed supine on the angiography table. Preliminary ultrasound examination of left upper arm revealed wide patency of left brachial vein, which was documented with a hard copy ultrasound image. Left upper arm was then prepped and draped in the usual sterile fashion, utilizing all elements of maximal sterile barrier technique, as described above. Using aseptic technique, local anesthesia, direct ultrasound guidance, and the micropuncture system, successful percutaneous entry was achieved into left brachial vein at the level of mid humerus. A 5 Croatian dual lumen power PICC was trimmed to 40 cm in length, was inserted through a 5 Croatian peel-away sheath, and was easily advanced centrally under fluoroscopic control. Tip of the power PICC was positioned at upper right atrium. This was documented with a single fluoroscopic spot image. The PICC was then demonstrated to flush and aspirate normally, and was secured at the skin exit site utilizing suture and sterile dressing. The patient tolerated the procedure well without apparent complication. Impression: Successful, uneventful ultrasound and fluoro guided placement of left brachial vein 5 Croatian dual-lumen 40 cm power PICC, as described.
[2017-01-29] MEDS: FUROSEMIDE 20 MG TABLET PO SCH (08:26)
[2017-01-29] MEDS: VANCOMYCIN 250 MG/5 ML ORAL SOLUTION. PO SCH ×4 (08:26→20:28)
[2017-01-29] MEDS: METRONIDAZOLE 500 MG TABLET. PO SCH ×3 (08:26→20:28)
[2017-01-29] MEDS: INSULIN ASPART 300 UNITS/3 ML INSULN.PEN SQ SCH ×3 (08:34→17:35)
--- NOTE | 2017-01-29 10:10 | PDOC ---
Infectious Disease Note Subjective Subjective Better Still some dysuria ROS ROS GEN: Denies fevers, chills, sweats HEENT: Denies blurred vision CV: Denies chest pain RESP: Has mild cough today GI: Denies n/v/d NEURO: Denies confusion, dizziness MSK: Denies weakness, joint pain/swelling Vital Sign Vital Signs Vital Signs Date Time Temp Pulse Resp B/P Pulse Ox O2 Delivery O2 Flow Rate FiO2 01/29/17 08:00 Room Air 01/29/17 07:00 100.6 92 20 120/46 94 100.6 Physical Exam PHYSICAL EXAM GENERAL: NAD, Alert, looks better and is eating HEENT: PERRL, OC/OP - clear NECK: Supple, no JVD, no LN LUNGS: Clear HEART: S1S2, no gallop, no murmur ABD: Soft, NT, no organomegaly, no rebound EXT: No edema, no cyanosis. Legs dressed PUMP OPERATOR: Alert, oriented x 3, no focal neurologic deficit SKIN: No rash IV: PICC LUE clean Labs Lab Laboratory Tests Test 01/28/17 10:54 01/28/17 16:31 01/28/17 20:59 01/29/17 05:29 Glucose (Fingerstick) 267mg/dL (70-99) 380mg/dL (70-99) 168mg/dL (70-99) White Blood Count 7.1x10^3/uL (4.0-11.0) Red Blood Count 2.62x10^6/uL (3.50-5.40) Hemoglobin 7.9g/dL (12.0-15.5) Hematocrit 24.3% (36.0-47.0) Mean Corpuscular Volume 93fL (79-100) Mean Corpuscular Hemoglobin 30pg (25-35) Mean Corpuscular Hemoglobin Concent 33g/dL (31-37) Red Cell Distribution Width 13.5% (11.5-14.5) Platelet Count 194x10^3/uL (140-400) Neutrophils (%) (Auto) 64% (31-73) Lymphocytes (%) (Auto) 20% (24-48) Monocytes (%) (Auto) 9% (0-9) Eosinophils (%) (Auto) 5% (0-3) Basophils (%) (Auto) 2% (0-3) Neutrophils # (Auto) 4.6x10^3uL (1.8-7.7) Lymphocytes # (Auto) 1.4x10^3/uL (1.0-4.8) Monocytes # (Auto) 0.7x10^3/uL (0.0-1.1) Eosinophils # (Auto) 0.4x10^3/uL (0.0-0.7) Basophils # (Auto) 0.1x10^3/uL (0.0-0.2) Sodium Level 141mmol/L (136-145) Potassium Level 5.3mmol/L (3.5-5.1) Chloride Level 111mmol/L (98-107) Carbon Dioxide Level 23mmol/L (21-32) Anion Gap 7 (6-14) Blood Urea Nitrogen 17mg/dL (7-20) Creatinine 1.4mg/dL (0.6-1.0) Estimated GFR (Cockcroft-Gault) 45.8 Glucose Level 138mg/dL (70-99) Calcium Level 7.7mg/dL (8.5-10.1) Objective Assessment Fever - better Hypoglycemia GNR UTI with symptoms but ? contaminated UA. D/w Micro this am Leukocytosis - better Sulfa allergy ? reaction Heel and buttock wounds not observed as she is planning to go to [facility] did not to be disturbed Plan Plan of Care Cont Po vanc and Flagyl (may be beneficial for wounds?) Cont Rocephin given improvement. Await sensitivities F/u labs and cults CODY WRIGHT MD Jan 29, 2017 10:10
--- NOTE | 2017-01-29 11:38 | PDOC ---
Renal-Progress Notes Subjective Notes Notes BETTER History of Present Illness Hx of present illness STABLE Vitals Vitals Vital Signs Date Time Temp Pulse Resp B/P Pulse Ox O2 Delivery O2 Flow Rate FiO2 01/29/17 11:00 101.5 66 20 139/67 98 Room Air 101.5 Weight Weight [ ] I.O. Intake and Output Intake and Output 01/29/17 07:00 Intake Total 960 ml Output Total 0 ml Balance 960 ml Intake Oral 960 ml Output Urine Total 0 ml Stool Total 0 ml # Voids 10 # Bowel Movements 9 Labs Labs Laboratory Tests Test 01/28/17 16:31 01/28/17 20:59 01/29/17 05:29 01/29/17 10:12 Glucose (Fingerstick) 380mg/dL (70-99) 168mg/dL (70-99) 305mg/dL (70-99) White Blood Count 7.1x10^3/uL (4.0-11.0) Red Blood Count 2.62x10^6/uL (3.50-5.40) Hemoglobin 7.9g/dL (12.0-15.5) Hematocrit 24.3% (36.0-47.0) Mean Corpuscular Volume 93fL (79-100) Mean Corpuscular Hemoglobin 30pg (25-35) Mean Corpuscular Hemoglobin Concent 33g/dL (31-37) Red Cell Distribution Width 13.5% (11.5-14.5) Platelet Count 194x10^3/uL (140-400) Neutrophils (%) (Auto) 64% (31-73) Lymphocytes (%) (Auto) 20% (24-48) Monocytes (%) (Auto) 9% (0-9) Eosinophils (%) (Auto) 5% (0-3) Basophils (%) (Auto) 2% (0-3) Neutrophils # (Auto) 4.6x10^3uL (1.8-7.7) Lymphocytes # (Auto) 1.4x10^3/uL (1.0-4.8) Monocytes # (Auto) 0.7x10^3/uL (0.0-1.1) Eosinophils # (Auto) 0.4x10^3/uL (0.0-0.7) Basophils # (Auto) 0.1x10^3/uL (0.0-0.2) Sodium Level 141mmol/L (136-145) Potassium Level 5.3mmol/L (3.5-5.1) Chloride Level 111mmol/L (98-107) Carbon Dioxide Level 23mmol/L (21-32) Anion Gap 7 (6-14) Blood Urea Nitrogen 17mg/dL (7-20) Creatinine 1.4mg/dL (0.6-1.0) Estimated GFR (Cockcroft-Gault) 45.8 Glucose Level 138mg/dL (70-99) Calcium Level 7.7mg/dL (8.5-10.1) Micro Micro Microbiology 01/27/17 Urine Culture - Final, Complete 01/27/17 Urine Culture Result 1 (URSULA) - Final, Complete 01/27/17 Antimicrobic Susceptibility - Final, Complete Review of Systems Constitutional: yes: alert, oriented Ears/Nose/Throat: Yes: no symptom reported Eyes: Yes: no symptom reported Pulmonary: Yes no symptom reported Cardiovascular: Yes no symptom reported Musculoskeletal: Yes: no symptom reported Psychiatric/Neurological: Yes: no symptom reported Physical Exam General Appearance: no apparent distress Respiratory: bilateral CTA Heart: S1S2 Abdomen: soft, bowel sounds present Extremities: pulses present Neurology: alert Musculoskeletal: low back pain, Osteoarthritis, Swelling Assessment Assessment IMP GNR UTI MAYNOR-BETTER WITH CR OF 1.6 CKD STAGE 3 WITH CR OF 1.3 HYPERKALEMIA-STABLE HYPOGLYCEMIA PLAN IVF'S ANTIBIOTICS WILL FOLLOW DANE MATIAS MD Jan 29, 2017 11:38
--- NOTE | 2017-01-29 11:40 | PDOC ---
PROGRESS NOTES Chief Complaint Chief Complaint Altered mental status History of Present Illness History of Present Illness No acute events overnight. PICC was placed yesterday. Patient is reporting a productive cough and sore throat. Will add Robitussin DM. Her hemoglobin fell to 7.9 today, she states she has had a transfusion in the past and is agreeable to one today. She was seen by wound care yesterday for wounds of her Left heel, Right lower leg and Left sacrum. [facility] was contacted as patient's family wished for transport, but patient transport was denied by [facility]. Family understands and is agreeable to continued admission. Vitals Vitals Vital Signs Date Time Temp Pulse Resp B/P Pulse Ox O2 Delivery O2 Flow Rate FiO2 01/29/17 11:00 101.5 66 20 139/67 98 Room Air 101.5 Physical Exam General: Alert, Cooperative, No acute distress Heart: Regular rate, Normal S1, Normal S2 Lungs: Clear, Other (productive cough, no wheezing, no crackles ) Abdomen: Soft, No tenderness Extremities: No cyanosis, No edema, Other (wound to L heel, R lower leg both dressed appropriately ) Skin: No rashes Labs LABS Laboratory Tests Test 01/28/17 16:31 01/28/17 20:59 01/29/17 05:29 01/29/17 10:12 Glucose (Fingerstick) 380mg/dL (70-99) 168mg/dL (70-99) 305mg/dL (70-99) White Blood Count 7.1x10^3/uL (4.0-11.0) Red Blood Count 2.62x10^6/uL (3.50-5.40) Hemoglobin 7.9g/dL (12.0-15.5) Hematocrit 24.3% (36.0-47.0) Mean Corpuscular Volume 93fL (79-100) Mean Corpuscular Hemoglobin 30pg (25-35) Mean Corpuscular Hemoglobin Concent 33g/dL (31-37) Red Cell Distribution Width 13.5% (11.5-14.5) Platelet Count 194x10^3/uL (140-400) Neutrophils (%) (Auto) 64% (31-73) Lymphocytes (%) (Auto) 20% (24-48) Monocytes (%) (Auto) 9% (0-9) Eosinophils (%) (Auto) 5% (0-3) Basophils (%) (Auto) 2% (0-3) Neutrophils # (Auto) 4.6x10^3uL (1.8-7.7) Lymphocytes # (Auto) 1.4x10^3/uL (1.0-4.8) Monocytes # (Auto) 0.7x10^3/uL (0.0-1.1) Eosinophils # (Auto) 0.4x10^3/uL (0.0-0.7) Basophils # (Auto) 0.1x10^3/uL (0.0-0.2) Sodium Level 141mmol/L (136-145) Potassium Level 5.3mmol/L (3.5-5.1) Chloride Level 111mmol/L (98-107) Carbon Dioxide Level 23mmol/L (21-32) Anion Gap 7 (6-14) Blood Urea Nitrogen 17mg/dL (7-20) Creatinine 1.4mg/dL (0.6-1.0) Estimated GFR (Cockcroft-Gault) 45.8 Glucose Level 138mg/dL (70-99) Calcium Level 7.7mg/dL (8.5-10.1) Review of Systems Review of Systems Denies chest pain and shortness of breath. Reports sore throat and cough. Denies chills. Assessment and Plan Assessmemt and Plan Problems Medical Problems: (1) Altered mental state Status: Acute (2) Hypoglycemia Status: Acute (3) UTI (urinary tract infection) Status: Acute Hypoglycemia Altered mental status Metabolic encephalopathy Dm2, poor control UTI C. diff colitis Severe malnutrition Anemia of CKD Leukocytosis without other SIRS criteria - Resolved Cognitive decline vs early dementia PLAN: Transfused 1 unit of PRBCs due to hemoglobin of 7.9 Added Robitussin DM for sore throat and cough Continue low intensity sliding scale insulin Renal and ID are following, recommendations appreciated Continue current antibiotic treatment PT/OT to eval and treat Continue to monitor daily labs Problems: Comment Review of Relevant I have reviewed the following items yariel (where applicable) has been applied. Labs Laboratory Tests Test 01/27/17 13:23 01/27/17 16:38 01/27/17 20:48 01/28/17 03:40 Glucose (Fingerstick) 100mg/dL (70-99) 105mg/dL (70-99) 131mg/dL (70-99) 165mg/dL (70-99) Test 01/28/17 06:59 01/28/17 07:15 01/28/17 09:20 01/28/17 10:54 Glucose (Fingerstick) 234mg/dL (70-99) 267mg/dL (70-99) Sodium Level 139mmol/L (136-145) Potassium Level 5.7mmol/L (3.5-5.1) Chloride Level 110mmol/L (98-107) Carbon Dioxide Level 22mmol/L (21-32) Anion Gap 7 (6-14) Blood Urea Nitrogen 22mg/dL (7-20) Creatinine 1.6mg/dL (0.6-1.0) Estimated GFR (Cockcroft-Gault) 39.3 BUN/Creatinine Ratio 14 (6-20) Glucose Level 229mg/dL (70-99) Calcium Level 7.6mg/dL (8.5-10.1) Total Bilirubin 0.3mg/dL (0.2-1.0) Aspartate Amino Transf (AST/SGOT) 53U/L (15-37) Alanine Aminotransferase (ALT/SGPT) 43U/L (14-59) Alkaline Phosphatase 162U/L (46-116) Total Protein 5.0g/dL (6.4-8.2) Albumin 1.9g/dL (3.4-5.0) Albumin/Globulin Ratio 0.6 (1.0-1.7) White Blood Count 7.6x10^3/uL (4.0-11.0) Red Blood Count 3.28x10^6/uL (3.50-5.40) Hemoglobin 9.8g/dL (12.0-15.5) Hematocrit 30.1% (36.0-47.0) Mean Corpuscular Volume 92fL (79-100) Mean Corpuscular Hemoglobin 30pg (25-35) Mean Corpuscular Hemoglobin Concent 33g/dL (31-37) Red Cell Distribution Width 13.3% (11.5-14.5) Platelet Count 246x10^3/uL (140-400) Neutrophils (%) (Auto) 73% (31-73) Lymphocytes (%) (Auto) 19% (24-48) Monocytes (%) (Auto) 4% (0-9) Eosinophils (%) (Auto) 4% (0-3) Basophils (%) (Auto) 1% (0-3) Neutrophils # (Auto) 5.6x10^3uL (1.8-7.7) Lymphocytes # (Auto) 1.5x10^3/uL (1.0-4.8) Monocytes # (Auto) 0.3x10^3/uL (0.0-1.1) Eosinophils # (Auto) 0.3x10^3/uL (0.0-0.7) Basophils # (Auto) 0.1x10^3/uL (0.0-0.2) Hemoglobin A1c 6.7% (4.8-5.6) Test 01/28/17 16:31 01/28/17 20:59 01/29/17 05:29 01/29/17 10:12 Glucose (Fingerstick) 380mg/dL (70-99) 168mg/dL (70-99) 305mg/dL (70-99) White Blood Count 7.1x10^3/uL (4.0-11.0) Red Blood Count 2.62x10^6/uL (3.50-5.40) Hemoglobin 7.9g/dL (12.0-15.5) Hematocrit 24.3% (36.0-47.0) Mean Corpuscular Volume 93fL (79-100) Mean Corpuscular Hemoglobin 30pg (25-35) Mean Corpuscular Hemoglobin Concent 33g/dL (31-37) Red Cell Distribution Width 13.5% (11.5-14.5) Platelet Count 194x10^3/uL (140-400) Neutrophils (%) (Auto) 64% (31-73) Lymphocytes (%) (Auto) 20% (24-48) Monocytes (%) (Auto) 9% (0-9) Eosinophils (%) (Auto) 5% (0-3) Basophils (%) (Auto) 2% (0-3) Neutrophils # (Auto) 4.6x10^3uL (1.8-7.7) Lymphocytes # (Auto) 1.4x10^3/uL (1.0-4.8) Monocytes # (Auto) 0.7x10^3/uL (0.0-1.1) Eosinophils # (Auto) 0.4x10^3/uL (0.0-0.7) Basophils # (Auto) 0.1x10^3/uL (0.0-0.2) Sodium Level 141mmol/L (136-145) Potassium Level 5.3mmol/L (3.5-5.1) Chloride Level 111mmol/L (98-107) Carbon Dioxide Level 23mmol/L (21-32) Anion Gap 7 (6-14) Blood Urea Nitrogen 17mg/dL (7-20) Creatinine 1.4mg/dL (0.6-1.0) Estimated GFR (Cockcroft-Gault) 45.8 Glucose Level 138mg/dL (70-99) Calcium Level 7.7mg/dL (8.5-10.1) Laboratory Tests Test 01/28/17 16:31 01/28/17 20:59 01/29/17 05:29 01/29/17 10:12 Glucose (Fingerstick) 380mg/dL (70-99) 168mg/dL (70-99) 305mg/dL (70-99) White Blood Count 7.1x10^3/uL (4.0-11.0) Red Blood Count 2.62x10^6/uL (3.50-5.40) Hemoglobin 7.9g/dL (12.0-15.5) Hematocrit 24.3% (36.0-47.0) Mean Corpuscular Volume 93fL (79-100) Mean Corpuscular Hemoglobin 30pg (25-35) Mean Corpuscular Hemoglobin Concent 33g/dL (31-37) Red Cell Distribution Width 13.5% (11.5-14.5) Platelet Count 194x10^3/uL (140-400) Neutrophils (%) (Auto) 64% (31-73) Lymphocytes (%) (Auto) 20% (24-48) Monocytes (%) (Auto) 9% (0-9) Eosinophils (%) (Auto) 5% (0-3) Basophils (%) (Auto) 2% (0-3) Neutrophils # (Auto) 4.6x10^3uL (1.8-7.7) Lymphocytes # (Auto) 1.4x10^3/uL (1.0-4.8) Monocytes # (Auto) 0.7x10^3/uL (0.0-1.1) Eosinophils # (Auto) 0.4x10^3/uL (0.0-0.7) Basophils # (Auto) 0.1x10^3/uL (0.0-0.2) Sodium Level 141mmol/L (136-145) Potassium Level 5.3mmol/L (3.5-5.1) Chloride Level 111mmol/L (98-107) Carbon Dioxide Level 23mmol/L (21-32) Anion Gap 7 (6-14) Blood Urea Nitrogen 17mg/dL (7-20) Creatinine 1.4mg/dL (0.6-1.0) Estimated GFR (Cockcroft-Gault) 45.8 Glucose Level 138mg/dL (70-99) Calcium Level 7.7mg/dL (8.5-10.1) Microbiology 01/27/17 Urine Culture - Final, Complete 01/27/17 Urine Culture Result 1 (URSULA) - Final, Complete 01/27/17 Antimicrobic Susceptibility - Final, Complete Medications Current Medications Dextrose 1,000 ml @ 75 mls/hr 1X ONCE IV ; Start 01/27/17 at 10:00; Stop 01/27 at 23:19; Status Cancel Dextrose 25 gm 25 gm 1X ONCE IV Last administered on 01/27/17 10:06; Start at 10:00; Stop 01/27/17 at 10:01; Status DC Dextrose/Sodium Chloride 500 ml @ 0 mls/hr 1X ONCE IV ; Start 01/27/17 at 10:00 ; Stop 01/27/17 at 10:03; Status DC Dextrose/Sodium Chloride (Iv D5% - 1/2 NS) 1,000 ml @ 125 mls/hr 1X ONCE IV Last administered on 01/27/17 10:09; Start 01/27/17 at 10:15; Stop 01/27/17 at 18:14; Status DC Ondansetron HCl (Zofran) 4 mg PRN Q8HRS PRN IV NAUSEA/VOMITING; Start 01/27/17 at 10:45; Stop 01/28/17 at 10:44; Status DC Acetaminophen (Tylenol) 650 mg PRN Q4HRS PRN PO FEVER Last administered on 01/28t 04:15; Start 01/27/17 at 10:45; Stop 01/28/17 at 10:44; Status DC Insulin Aspart (Novolog) 0-7 UNITS TIDWMEALS SQ ; Start 01/27/17 at 17:00; Stop 01/27/17 at 17:00; Status DC Dextrose 12.5 gm PRN Q15MIN PRN IV SEE COMMENTS; Start 01/27/17 at 15:30 Ampicillin Sodium/ Sulbactam Sodium (Unasyn) 3 gm Q6HRS IV ; Start 01/27/17 at 18:00; Stop 01/27/17 at 18:00; Status DC Bisacodyl (Dulcolax Supp) 10 mg PRN DAILY PRN RC CONSTIPATION; Start 01/27/17 at 15:30; Stop 01/27/17 at 15:52; Status DC Levothyroxine Sodium (Synthroid) 75 mcg DAILY PO ; Start 01/28/17 at 09:00; Stop 01/28/17 at 09:00; Status DC Magnesium Hydroxide (Milk Of Magnesia) 2,400 mg PRN DAILY PO ; Start 01/27/17 at 15:30; Stop 01/27/17 at 15:52; Status DC Metronidazole (Flagyl) 500 mg TID PO ; Start 01/27/17 at 21:00; Stop 01/27/17 at 21:00; Status DC Mirtazapine (Remeron) 15 mg QHS PO ; Start 01/27/17 at 21:00; Stop 01/27/17 at 21:00; Status DC Pantoprazole Sodium (Protonix) 40 mg BID PO ; Start 01/27/17 at 21:00; Stop 11/03 at 21:00; Status DC Senna/Docusate Sodium (Senna Plus) 2 tab Q12HR PRN PO CONSTIPATION; Start 01/27 at 15:30; Stop 01/27/17 at 15:52; Status DC Zolpidem Tartrate (Ambien) 5 mg QHS PO ; Start 01/27/17 at 21:00; Stop 01/27/17 at 21:00; Status DC Non-Formulary Medication 324 mg DAILY PO ; Start 01/28/17 at 09:00; Stop at 09:00; Status DC Non-Formulary Medication 10 unit QHS SQ ; Start 01/27/17 at 21:00; Stop at 21:00; Status DC Non-Formulary Medication 1 tab QHS PRN PO INSOMNIA; Start 01/27/17 at 15:30; Stop 01/27/17 at 15:52; Status DC Non-Formulary Medication 1 each DAILY PO ; Start 01/28/17 at 09:00; Stop at 09:00; Status DC Ondansetron HCl (Zofran Odt) 4 mg PRN Q6HRS PRN PO NAUSEA/VOMITING; Start 01/27 at 16:00 Non-Formulary Medication 1 tab Q4HRS PRN PO PAIN; Start 01/27/17 at 15:30; Stop 01/27/17 at 15:52; Status DC Non-Formulary Medication 20 mg BID PO ; Start 01/27/17 at 21:00; Stop 01/27/17 at 21:00; Status DC Metronidazole (Flagyl) 500 mg TID PO Last administered on 01/29/17 08:26; Start 01/27/17 at 16:30 Acetaminophen (Tylenol) 650 mg PRN Q4HRS PRN PO PAIN; Start 01/27/17 at 15:45 Furosemide (Lasix) 20 mg DAILY PO Last administered on 01/29/17 08:26; Start 01/27/17 at 16:30 Gentamicin Sulfate (Garamycin) 1 sharonda PRN Q8HRS PRN TP . Last administered on 16:33; Start 01/27/17 at 21:00 Acetaminophen/ Hydrocodone Bitart (Lortab 5/325) 1 tab PRN Q4HRS PRN PO PAIN Last administered on 01/28/17 22:05; Start 01/27/17 at 16:00 Vancomycin HCl 250 mg [id number] PO Last administered on 01/29/17 08:26; Start at 17:00 Pantoprazole Sodium 40 mg 40 mg DAILYAC PO Last administered on 01/29/17 05:59 ; Start 01/28/17 at 07:30 Ceftriaxone Sodium/Sodium Chloride (Rocephin/Iv Sodium Chloride 0.9% 50ml) 50 ml @ 100 mls/hr Q24H IV Last administered on 01/28/17 16:31; Start 01/27/17 at 17:00 Morphine Sulfate 4 mg PRN Q2HR PRN IV PAIN Last administered on 01/29/17 08:29 ; Start 01/27/17 at 16:15 Oxycodone/ Acetaminophen 1 tab 1 tab PRN Q6HRS PRN PO PAIN Last administered on 01/28/17 08:57; Start 01/27/17 at 16:15 Dextrose/Sodium Chloride (Iv D5% - 1/2 NS) 1,000 ml @ 100 mls/hr Q10H IV Last administered on 01/27/17 20:47; Start 01/28/17 at 02:15; Stop 01/28/17 at 19:30 ; Status DC Insulin Aspart (Novolog) 0-5 UNITS TIDWMEALS SQ Last administered on 01/28/17 17:26; Start 01/28/17 at 12:00 Dextrose 12.5 gm PRN Q15MIN PRN IV SEE COMMENTS; Start 01/28/17 at 11:00; Status UNV Lidocaine/Sodium Bicarbonate 20 ml 20 ml STK-MED ONCE IJ ; Start 01/28/17 at 13: 49; Stop 01/28/17 at 13:50; Status DC Heparin Sodium/ Sodium Chloride 500 ml @ As Directed STK-MED ONCE .ROUTE ; Start 01/28/17 at 13:49; Stop 01/28/17 at 13:50; Status DC Lidocaine/Sodium Bicarbonate (Buffered Lidocaine 1%) 3 ml 1X ONCE IJ Last administered on 01/28/17 14:34; Start 01/28/17 at 14:15; Stop 01/28/17 at 14:16 ; Status DC Heparin Sodium/ Sodium Chloride 40 unit 1X ONCE IV Last administered on 14:34; Start 01/28/17 at 14:15; Stop 01/28/17 at 14:16; Status DC Insulin Aspart (Novolog) 5 units 1X ONCE SQ Last administered on 01/28/17 17: 27; Start 01/28/17 at 17:00; Stop 01/28/17 at 17:01; Status DC Guaifenesin (Robitussin) 200 mg PRN Q4HRS PRN PO COUGH; Start 01/29/17 at 11:30 Throat Lozenges (Cepacol Sore Throat Lozenge) 1 alejo PRN Q2HRS PRN PO SORE THROAT; Start 01/29/17 at 11:30 Active Scripts Active Reported Vancomycin HCl 125 Mg/2.5 Ml Syringe 250 Mg PO QID Novolog (Insulin Aspart) 100 Unit/1 Ml Cartridge 6 Unit SQ TIDBFRMEAL Levemir (Insulin Detemir) 100 Unit/1 Ml Vial 14 Unit SQ HS Furosemide 20 Mg Tablet 20 Mg PO DAILY Hydrocodone-Apap 5-300 (Hydrocodone Bit/Acetaminophen) 1 Each Tablet 1 Tab PO PRN Q4HRS PRN Gentamicin Sulfate 0.1% Oint (Gentamicin Sulfate) 15 Gm Oint...g. 1 Sharonda TP PRN Q8HRS PRN DIRECTED BY PHYSICIAN Acetaminophen 325 Mg Tablet 650 Mg PO PRN Q4HRS PRN Milk Of Magnesia (Magnesium Hydroxide) 400 Mg/5 Ml Oral.susp 30 Ml PO PRN DAILY Ondansetron Hcl 4 Mg Tablet 1 Tab PO PRN Q12HR PRN Pantoprazole Sodium 40 Mg Tablet. 1 Tab PO DAILY Flagyl (Metronidazole) 500 Mg Tablet 500 Mg PO TID Vitals/I & O Vital Sign - Last 24 Hours 01/28/17 01/28/17 01/28/17 01/28/17 11:59 15:00 19:00 20:00 Temp 97.5 98.8 97.5 98.8 Pulse 64 69 Resp 20 18 B/P 115/70 145/46 Pulse Ox 97 96 98 O2 Delivery Room Air Room Air Room Air Room Air 01/28/17 01/28/17 01/28/17 01/29/17 22:05 23:00 23:05 01:22 Temp 100.2 100.2 Pulse 70 Resp 18 B/P 104/58 Pulse Ox 98 98 98 98 O2 Delivery Room Air Room Air Room Air Room Air 01/29/17 01/29/17 01/29/17 01/29/17 03:00 06:02 07:00 08:00 Temp 100.8 100.6 100.8 100.6 Pulse 90 92 Resp 20 20 B/P 146/76 120/46 Pulse Ox 98 98 94 O2 Delivery Room Air Room Air Room Air 01/29/17 11:00 Temp 101.5 101.5 Pulse 66 Resp 20 B/P 139/67 Pulse Ox 98 O2 Delivery Room Air Intake and Output 01/28/17 01/28/17 01/29/17 15:00 23:00 07:00 Intake Total 420 ml 540 ml Output Total 0 ml Balance 420 ml 540 ml ADELSO JEFF III DO Jan 29, 2017 11:39
[2017-01-29] MEDS: GUAIFENESIN DM 200MG/20MG 10 ML SYRUP. PO PRN (12:01)
[2017-01-29] MEDS: IV NORMAL SALINE 1000ML BAG 1,000 ML IV SCH (12:02)
[2017-01-29] MEDS: BENZOCAINE/MENTHOL LOZENGE. PO PRN (12:06)
[2017-01-29] MEDS: ACETAMINOPHEN 325 MG TABLET. PO PRN ×2 (15:25→22:44)
[2017-01-29] MEDS: HYDROCODONE/APAP 5/325MG TABLET. PO PRN ×2 (15:26→21:43)
[2017-01-29 16:07] LABS: HEMATOCRIT 24.6 % (36.0-47.0); HEMOGLOBIN 7.9 g/dL (12.0-15.5)
[2017-01-29] MEDS: CEFTRIAXONE SODIUM 1 GM in IV NORMAL SALINE 50ML 50 ML IV SCH (17:21)
[2017-01-30 03:34] VITALS: BP 129/52
[2017-01-30] MEDS: GUAIFENESIN 200 MG/10 ML LIQUID. PO PRN ×3 (04:01→17:10)
[2017-01-30] MEDS: HYDROCODONE/APAP 5/325MG TABLET. PO PRN (04:07)
[2017-01-30 06:08] LABS: CALCIUM 7.7 mg/dL (8.5-10.1); CREATININE 1.4 mg/dL (0.6-1.0); GFR 45.8
[2017-01-30 06:10] LABS: POTASSIUM 5.3 mmol/L (3.5-5.1)
[2017-01-30 06:13] LABS: BASO # 0.1 x10^3/uL (0.0-0.2); BASO % 1 % (0-3); EOS % 5 % (0-3); HEMATOCRIT 28.5 % (36.0-47.0); HEMOGLOBIN 9.2 g/dL (12.0-15.5); LYMPH % 17 % (24-48); MEAN CORPUSCULAR HEMOGLOBIN 30 pg (25-35); MEAN CORPUSCULAR HGB CONC 32 g/dL (31-37); MEAN CORPUSCULAR VOLUME 91 fL (79-100); MONO % 10 % (0-9); NEUT % 68 % (31-73); PLATELET COUNT 183 x10^3/uL (140-400); RED BLOOD COUNT 3.13 x10^6/uL (3.50-5.40); RED CELL DISTRIBUTION WIDTH 14.4 % (11.5-14.5); WHITE BLOOD COUNT 6.1 x10^3/uL (4.0-11.0)
[2017-01-30] MEDS: IV NORMAL SALINE 1000ML BAG 1,000 ML IV SCH ×2 (06:32→17:08)
[2017-01-30 07:00] VITALS: BP 142/54
[2017-01-30] MEDS ORDERED: LEVOFLOXACIN 750 MG TABLET. PO ONE (08:00)
--- NOTE | 2017-01-30 08:05 | PDOC ---
Infectious Disease Note Subjective Subjective Better aside from worsening congestion/cough Improved dysuria but still some frrequency ROS ROS GEN: Denies fevers, chills, sweats HEENT: Denies blurred vision, sore throat CV: Denies chest pain RESP: Denies shortness of air GI: Denies n/v/d NEURO: Denies confusion, dizziness MSK: Denies weakness, joint pain/swelling Vital Sign Vital Signs Vital Signs Date Time Temp Pulse Resp B/P Pulse Ox O2 Delivery O2 Flow Rate FiO2 01/30/17 05:07 96 Room Air 01/30/17 04:07 20 01/30/17 03:34 101.8 63 129/52 101.8 Physical Exam PHYSICAL EXAM GENERAL: NAD, Alert, looks ok HEENT: PERRL, OC/OP - clear NECK: Supple, no JVD, no LN LUNGS: Clear HEART: S1S2, no gallop, no murmur ABD: Soft, NT, no organomegaly, no rebound EXT: No edema, no cyanosis. Legs dressed GLASS DRILLER: Alert, oriented x 3, no focal neurologic deficit SKIN: No rash IV: PICC LUE clean Labs Lab Laboratory Tests Test 01/29/17 10:12 01/29/17 15:45 01/29/17 16:47 01/29/17 20:39 Glucose (Fingerstick) 305mg/dL (70-99) 316mg/dL (70-99) 191mg/dL (70-99) Hemoglobin 7.9g/dL (12.0-15.5) Hematocrit 24.6% (36.0-47.0) Test 01/30/17 05:38 01/30/17 06:59 White Blood Count 6.1x10^3/uL (4.0-11.0) Red Blood Count 3.13x10^6/uL (3.50-5.40) Hemoglobin 9.2g/dL (12.0-15.5) Hematocrit 28.5% (36.0-47.0) Mean Corpuscular Volume 91fL (79-100) Mean Corpuscular Hemoglobin 30pg (25-35) Mean Corpuscular Hemoglobin Concent 32g/dL (31-37) Red Cell Distribution Width 14.4% (11.5-14.5) Platelet Count 183x10^3/uL (140-400) Neutrophils (%) (Auto) 68% (31-73) Lymphocytes (%) (Auto) 17% (24-48) Monocytes (%) (Auto) 10% (0-9) Eosinophils (%) (Auto) 5% (0-3) Basophils (%) (Auto) 1% (0-3) Neutrophils # (Auto) 4.1x10^3uL (1.8-7.7) Lymphocytes # (Auto) 1.0x10^3/uL (1.0-4.8) Monocytes # (Auto) 0.6x10^3/uL (0.0-1.1) Eosinophils # (Auto) 0.3x10^3/uL (0.0-0.7) Basophils # (Auto) 0.1x10^3/uL (0.0-0.2) Sodium Level 141mmol/L (136-145) Potassium Level 5.3mmol/L (3.5-5.1) Chloride Level 111mmol/L (98-107) Carbon Dioxide Level 23mmol/L (21-32) Anion Gap 7 (6-14) Blood Urea Nitrogen 14mg/dL (7-20) Creatinine 1.4mg/dL (0.6-1.0) Estimated GFR (Cockcroft-Gault) 45.8 Glucose Level 271mg/dL (70-99) Calcium Level 7.7mg/dL (8.5-10.1) Glucose (Fingerstick) 237mg/dL (70-99) Micro Escherichia coli Greater than 100,000 colony forming units per mL ANTIMICROBIAL SUSCEPTIBILITY Final Comment S = Susceptible; I = Intermediate; R = Resistant P = Positive; N = Negative MICS are expressed in micrograms per mL Antibiotic RSLT#1 RSLT#2 RSLT#3 RSLT#4 Amoxicillin/Clavulanic Acid S Ampicillin R Cefepime S Ceftriaxone S Cefuroxime I Cephalothin I Ciprofloxacin S Ertapenem S Gentamicin R Imipenem S Levofloxacin S Nitrofurantoin S Piperacillin R Tetracycline S Tobramycin I Trimethoprim/Sulfa S Objective Assessment Fever - worse Cough and congestion Hypoglycemia Ecoli UTI with symptoms but ? contaminated UA.Sens to Rocephin Leukocytosis - better Sulfa allergy ? reaction Heel and buttock wounds not observed as she is planning to go to [employer] did not to be disturbed Plan Plan of Care Flu swab CXR Blood cults times 2 Cefepime/Vanc/Levoflox times one cover HCAP Cont Po vanc but BID and Flagyl (may be beneficial for wounds?) Discont Rocephin Probiotics F/u labs and cults CODY WRIGHT MD Jan 30, 2017 08:05
[2017-01-30] MEDS: FUROSEMIDE 20 MG TABLET PO SCH (08:07)
[2017-01-30] MEDS: BENZOCAINE/MENTHOL LOZENGE. PO PRN ×4 (08:07→20:34)
[2017-01-30] MEDS: METRONIDAZOLE 500 MG TABLET. PO SCH ×3 (08:07→20:34)
[2017-01-30] MEDS: ACETAMINOPHEN 325 MG TABLET. PO PRN ×2 (08:07→15:08)
[2017-01-30] MEDS: GUAIFENESIN DM 200MG/20MG 10 ML SYRUP. PO PRN (08:07)
[2017-01-30] MEDS: PANTOPRAZOLE 40 MG TABLET. PO SCH (08:07)
[2017-01-30] MEDS: MORPHINE SULFATE 4 MG/ML DISP.SYRIN. IV PRN ×4 (08:08→20:34)
[2017-01-30] MEDS ORDERED: VANCOMYCIN 1.75 GM in IV NORMAL SALINE 500ML BAG 500 ML IV ONE (08:30)
[2017-01-30] MEDS: INSULIN ASPART 300 UNITS/3 ML INSULN.PEN SQ SCH ×3 (08:35→17:16)
[2017-01-30 09:50] LABS: OBC FLU VALID
[2017-01-30] MEDS: LACTOBACILLUS ACIDOPH & BULGAR 1 TABLET. PO SCH ×3 (10:15→17:09)
[2017-01-30] MEDS: OXYCODONE/APAP 5/325 TABLET. PO PRN (10:16)
[2017-01-30] MEDS: CEFEPIME HCL 1 GM in IV NORMAL SALINE 50ML 50 ML IV SCH ×3 (10:17→20:41)
[2017-01-30] MEDS: VANCOMYCIN 125 MG/2.5 ML ORAL SOLUTION. PO SCH ×2 (10:18→20:33)
[2017-01-30 11:00] VITALS: BP 130/54
--- NOTE | 2017-01-30 11:15 | PDOC ---
Renal-Progress Notes Subjective Notes Notes NONE History of Present Illness Hx of present illness STABLE Vitals Vitals Vital Signs Date Time Temp Pulse Resp B/P Pulse Ox O2 Delivery O2 Flow Rate FiO2 01/30/17 07:00 101.8 58 14 142/54 97 Room Air 101.8 Weight Weight [ ] I.O. Intake and Output Intake and Output 01/30/17 07:00 Intake Total 1495 ml Balance 1495 ml Intake Oral 1080 ml Blood Product IV Normal Saline Flush 415 ml # Voids 6 # Bowel Movements 4 Labs Labs Laboratory Tests Test 01/29/17 15:45 01/29/17 16:47 01/29/17 20:39 01/30/17 05:38 Hemoglobin 7.9g/dL (12.0-15.5) 9.2g/dL (12.0-15.5) Hematocrit 24.6% (36.0-47.0) 28.5% (36.0-47.0) Glucose (Fingerstick) 316mg/dL (70-99) 191mg/dL (70-99) White Blood Count 6.1x10^3/uL (4.0-11.0) Red Blood Count 3.13x10^6/uL (3.50-5.40) Mean Corpuscular Volume 91fL (79-100) Mean Corpuscular Hemoglobin 30pg (25-35) Mean Corpuscular Hemoglobin Concent 32g/dL (31-37) Red Cell Distribution Width 14.4% (11.5-14.5) Platelet Count 183x10^3/uL (140-400) Neutrophils (%) (Auto) 68% (31-73) Lymphocytes (%) (Auto) 17% (24-48) Monocytes (%) (Auto) 10% (0-9) Eosinophils (%) (Auto) 5% (0-3) Basophils (%) (Auto) 1% (0-3) Neutrophils # (Auto) 4.1x10^3uL (1.8-7.7) Lymphocytes # (Auto) 1.0x10^3/uL (1.0-4.8) Monocytes # (Auto) 0.6x10^3/uL (0.0-1.1) Eosinophils # (Auto) 0.3x10^3/uL (0.0-0.7) Basophils # (Auto) 0.1x10^3/uL (0.0-0.2) Sodium Level 141mmol/L (136-145) Potassium Level 5.3mmol/L (3.5-5.1) Chloride Level 111mmol/L (98-107) Carbon Dioxide Level 23mmol/L (21-32) Anion Gap 7 (6-14) Blood Urea Nitrogen 14mg/dL (7-20) Creatinine 1.4mg/dL (0.6-1.0) Estimated GFR (Cockcroft-Gault) 45.8 Glucose Level 271mg/dL (70-99) Calcium Level 7.7mg/dL (8.5-10.1) Test 01/30/17 06:59 01/30/17 08:30 Glucose (Fingerstick) 237mg/dL (70-99) Influenza Type A Antigen Negative (NEGATIVE) Influenza Type B Antigen Negative (NEGATIVE) Micro Micro Microbiology 01/27/17 Urine Culture - Final, Complete 01/27/17 Urine Culture Result 1 (URSULA) - Final, Complete 01/27/17 Antimicrobic Susceptibility - Final, Complete Review of Systems Constitutional: yes: alert, oriented Ears/Nose/Throat: Yes: no symptom reported Eyes: Yes: no symptom reported Pulmonary: Yes no symptom reported Cardiovascular: Yes no symptom reported Musculoskeletal: Yes: no symptom reported Psychiatric/Neurological: Yes: no symptom reported Physical Exam General Appearance: no apparent distress Respiratory: bilateral CTA Heart: S1S2 Abdomen: soft, bowel sounds present Extremities: pulses present Neurology: alert Musculoskeletal: low back pain, Osteoarthritis, Swelling Assessment Assessment IMP GNR UTI MAYNOR-BETTER WITH CR OF 1.4 CKD STAGE 3 WITH CR OF 1.3 HYPERKALEMIA-STABLE HYPOGLYCEMIA PLAN IVF'S ANTIBIOTICS WILL FOLLOW DANE MATIAS MD Jan 30, 2017 11:15
--- NOTE | 2017-01-30 13:43 | PDOC ---
PROGRESS NOTES Chief Complaint Chief Complaint Altered mental status History of Present Illness History of Present Illness Patient was febrile overnight with a Tmax of 102.0. ID has recommended a CXR, flu swabs, and antibiotics to cover HCAP. Their recommendations on the case are greatly appreciated. She is slightly confused today, but is able to answer questions. Patient is feeling better overall but still has a productive cough and sore throat. Vitals Vitals Vital Signs Date Time Temp Pulse Resp B/P Pulse Ox O2 Delivery O2 Flow Rate FiO2 01/30/17 11:00 100.9 54 14 130/54 97 Room Air 100.9 Physical Exam General: Alert, Cooperative, No acute distress, Other (slight confusion) Heart: Regular rate, Normal S1, Normal S2 Lungs: Clear, Other (productive cough, no crackles) Abdomen: Soft, No tenderness Extremities: No cyanosis, No edema Skin: No rashes, Other (wound to L heel, R lower leg dressed appropriately ) Labs LABS Laboratory Tests Test 01/29/17 15:45 01/29/17 16:47 01/29/17 20:39 01/30/17 05:38 Hemoglobin 7.9g/dL (12.0-15.5) 9.2g/dL (12.0-15.5) Hematocrit 24.6% (36.0-47.0) 28.5% (36.0-47.0) Glucose (Fingerstick) 316mg/dL (70-99) 191mg/dL (70-99) White Blood Count 6.1x10^3/uL (4.0-11.0) Red Blood Count 3.13x10^6/uL (3.50-5.40) Mean Corpuscular Volume 91fL (79-100) Mean Corpuscular Hemoglobin 30pg (25-35) Mean Corpuscular Hemoglobin Concent 32g/dL (31-37) Red Cell Distribution Width 14.4% (11.5-14.5) Platelet Count 183x10^3/uL (140-400) Neutrophils (%) (Auto) 68% (31-73) Lymphocytes (%) (Auto) 17% (24-48) Monocytes (%) (Auto) 10% (0-9) Eosinophils (%) (Auto) 5% (0-3) Basophils (%) (Auto) 1% (0-3) Neutrophils # (Auto) 4.1x10^3uL (1.8-7.7) Lymphocytes # (Auto) 1.0x10^3/uL (1.0-4.8) Monocytes # (Auto) 0.6x10^3/uL (0.0-1.1) Eosinophils # (Auto) 0.3x10^3/uL (0.0-0.7) Basophils # (Auto) 0.1x10^3/uL (0.0-0.2) Sodium Level 141mmol/L (136-145) Potassium Level 5.3mmol/L (3.5-5.1) Chloride Level 111mmol/L (98-107) Carbon Dioxide Level 23mmol/L (21-32) Anion Gap 7 (6-14) Blood Urea Nitrogen 14mg/dL (7-20) Creatinine 1.4mg/dL (0.6-1.0) Estimated GFR (Cockcroft-Gault) 45.8 Glucose Level 271mg/dL (70-99) Calcium Level 7.7mg/dL (8.5-10.1) Test 01/30/17 06:59 01/30/17 08:30 01/30/17 11:35 Glucose (Fingerstick) 237mg/dL (70-99) 268mg/dL (70-99) Influenza Type A Antigen Negative (NEGATIVE) Influenza Type B Antigen Negative (NEGATIVE) Review of Systems Review of Systems Denies chest pain and shortness of breath. States her cough has not improved. Assessment and Plan Assessmemt and Plan Problems Medical Problems: (1) Altered mental state Status: Acute (2) Hypoglycemia Status: Acute (3) UTI (urinary tract infection) Status: Acute ASSESSMENT: Hypoglycemia Altered mental status Metabolic encephalopathy Dm2, poor control UTI C. diff colitis Severe malnutrition Anemia of CKD Leukocytosis without other SIRS criteria - Resolved Cognitive decline vs early dementia PLAN: Per ID, flu swabs (negative), CXR and antibiotics to cover HCAP, their recommendations are appreciated Continue Robitussin DM Continue low intensity sliding scale insulin Renal and ID are following, their recommendations are appreciated Continue antibiotics per ID Continue wound care PT/OT to eval and treat Continue to monitor daily labs Problems: Comment Review of Relevant I have reviewed the following items yariel (where applicable) has been applied. Labs Laboratory Tests Test 01/28/17 16:31 01/28/17 16:41 01/28/17 20:45 01/28/17 20:59 Glucose (Fingerstick) 380mg/dL (70-99) 168mg/dL (70-99) Nasal Screen MRSA (PCR) Negative (Negative) Clostridium difficile Toxin (PCR) Negative (Negative) Test 01/29/17 05:29 01/29/17 10:12 01/29/17 15:45 01/29/17 16:47 White Blood Count 7.1x10^3/uL (4.0-11.0) Red Blood Count 2.62x10^6/uL (3.50-5.40) Hemoglobin 7.9g/dL (12.0-15.5) 7.9g/dL (12.0-15.5) Hematocrit 24.3% (36.0-47.0) 24.6% (36.0-47.0) Mean Corpuscular Volume 93fL (79-100) Mean Corpuscular Hemoglobin 30pg (25-35) Mean Corpuscular Hemoglobin Concent 33g/dL (31-37) Red Cell Distribution Width 13.5% (11.5-14.5) Platelet Count 194x10^3/uL (140-400) Neutrophils (%) (Auto) 64% (31-73) Lymphocytes (%) (Auto) 20% (24-48) Monocytes (%) (Auto) 9% (0-9) Eosinophils (%) (Auto) 5% (0-3) Basophils (%) (Auto) 2% (0-3) Neutrophils # (Auto) 4.6x10^3uL (1.8-7.7) Lymphocytes # (Auto) 1.4x10^3/uL (1.0-4.8) Monocytes # (Auto) 0.7x10^3/uL (0.0-1.1) Eosinophils # (Auto) 0.4x10^3/uL (0.0-0.7) Basophils # (Auto) 0.1x10^3/uL (0.0-0.2) Sodium Level 141mmol/L (136-145) Potassium Level 5.3mmol/L (3.5-5.1) Chloride Level 111mmol/L (98-107) Carbon Dioxide Level 23mmol/L (21-32) Anion Gap 7 (6-14) Blood Urea Nitrogen 17mg/dL (7-20) Creatinine 1.4mg/dL (0.6-1.0) Estimated GFR (Cockcroft-Gault) 45.8 Glucose Level 138mg/dL (70-99) Calcium Level 7.7mg/dL (8.5-10.1) Glucose (Fingerstick) 305mg/dL (70-99) 316mg/dL (70-99) Test 01/29/17 20:39 01/30/17 05:38 01/30/17 06:59 01/30/17 08:30 Glucose (Fingerstick) 191mg/dL (70-99) 237mg/dL (70-99) White Blood Count 6.1x10^3/uL (4.0-11.0) Red Blood Count 3.13x10^6/uL (3.50-5.40) Hemoglobin 9.2g/dL (12.0-15.5) Hematocrit 28.5% (36.0-47.0) Mean Corpuscular Volume 91fL (79-100) Mean Corpuscular Hemoglobin 30pg (25-35) Mean Corpuscular Hemoglobin Concent 32g/dL (31-37) Red Cell Distribution Width 14.4% (11.5-14.5) Platelet Count 183x10^3/uL (140-400) Neutrophils (%) (Auto) 68% (31-73) Lymphocytes (%) (Auto) 17% (24-48) Monocytes (%) (Auto) 10% (0-9) Eosinophils (%) (Auto) 5% (0-3) Basophils (%) (Auto) 1% (0-3) Neutrophils # (Auto) 4.1x10^3uL (1.8-7.7) Lymphocytes # (Auto) 1.0x10^3/uL (1.0-4.8) Monocytes # (Auto) 0.6x10^3/uL (0.0-1.1) Eosinophils # (Auto) 0.3x10^3/uL (0.0-0.7) Basophils # (Auto) 0.1x10^3/uL (0.0-0.2) Sodium Level 141mmol/L (136-145) Potassium Level 5.3mmol/L (3.5-5.1) Chloride Level 111mmol/L (98-107) Carbon Dioxide Level 23mmol/L (21-32) Anion Gap 7 (6-14) Blood Urea Nitrogen 14mg/dL (7-20) Creatinine 1.4mg/dL (0.6-1.0) Estimated GFR (Cockcroft-Gault) 45.8 Glucose Level 271mg/dL (70-99) Calcium Level 7.7mg/dL (8.5-10.1) Influenza Type A Antigen Negative (NEGATIVE) Influenza Type B Antigen Negative (NEGATIVE) Test 01/30/17 11:35 Glucose (Fingerstick) 268mg/dL (70-99) Laboratory Tests Test 01/29/17 15:45 01/29/17 16:47 01/29/17 20:39 01/30/17 05:38 Hemoglobin 7.9g/dL (12.0-15.5) 9.2g/dL (12.0-15.5) Hematocrit 24.6% (36.0-47.0) 28.5% (36.0-47.0) Glucose (Fingerstick) 316mg/dL (70-99) 191mg/dL (70-99) White Blood Count 6.1x10^3/uL (4.0-11.0) Red Blood Count 3.13x10^6/uL (3.50-5.40) Mean Corpuscular Volume 91fL (79-100) Mean Corpuscular Hemoglobin 30pg (25-35) Mean Corpuscular Hemoglobin Concent 32g/dL (31-37) Red Cell Distribution Width 14.4% (11.5-14.5) Platelet Count 183x10^3/uL (140-400) Neutrophils (%) (Auto) 68% (31-73) Lymphocytes (%) (Auto) 17% (24-48) Monocytes (%) (Auto) 10% (0-9) Eosinophils (%) (Auto) 5% (0-3) Basophils (%) (Auto) 1% (0-3) Neutrophils # (Auto) 4.1x10^3uL (1.8-7.7) Lymphocytes # (Auto) 1.0x10^3/uL (1.0-4.8) Monocytes # (Auto) 0.6x10^3/uL (0.0-1.1) Eosinophils # (Auto) 0.3x10^3/uL (0.0-0.7) Basophils # (Auto) 0.1x10^3/uL (0.0-0.2) Sodium Level 141mmol/L (136-145) Potassium Level 5.3mmol/L (3.5-5.1) Chloride Level 111mmol/L (98-107) Carbon Dioxide Level 23mmol/L (21-32) Anion Gap 7 (6-14) Blood Urea Nitrogen 14mg/dL (7-20) Creatinine 1.4mg/dL (0.6-1.0) Estimated GFR (Cockcroft-Gault) 45.8 Glucose Level 271mg/dL (70-99) Calcium Level 7.7mg/dL (8.5-10.1) Test 01/30/17 06:59 01/30/17 08:30 01/30/17 11:35 Glucose (Fingerstick) 237mg/dL (70-99) 268mg/dL (70-99) Influenza Type A Antigen Negative (NEGATIVE) Influenza Type B Antigen Negative (NEGATIVE) Microbiology 01/27/17 Urine Culture - Final, Complete 01/27/17 Urine Culture Result 1 (URSULA) - Final, Complete 01/27/17 Antimicrobic Susceptibility - Final, Complete Medications Current Medications Dextrose 1,000 ml @ 75 mls/hr 1X ONCE IV ; Start 01/27/17 at 10:00; Stop 01/27 at 23:19; Status Cancel Dextrose 25 gm 25 gm 1X ONCE IV Last administered on 01/27/17 10:06; Start at 10:00; Stop 01/27/17 at 10:01; Status DC Dextrose/Sodium Chloride 500 ml @ 0 mls/hr 1X ONCE IV ; Start 01/27/17 at 10:00 ; Stop 01/27/17 at 10:03; Status DC Dextrose/Sodium Chloride (Iv D5% - 1/2 NS) 1,000 ml @ 125 mls/hr 1X ONCE IV Last administered on 01/27/17 10:09; Start 01/27/17 at 10:15; Stop 01/27/17 at 18:14; Status DC Ondansetron HCl (Zofran) 4 mg PRN Q8HRS PRN IV NAUSEA/VOMITING; Start 01/27/17 at 10:45; Stop 01/28/17 at 10:44; Status DC Acetaminophen (Tylenol) 650 mg PRN Q4HRS PRN PO FEVER Last administered on 01/28t 04:15; Start 01/27/17 at 10:45; Stop 01/28/17 at 10:44; Status DC Insulin Aspart (Novolog) 0-7 UNITS TIDWMEALS SQ ; Start 01/27/17 at 17:00; Stop 01/27/17 at 17:00; Status DC Dextrose 12.5 gm PRN Q15MIN PRN IV SEE COMMENTS; Start 01/27/17 at 15:30 Ampicillin Sodium/ Sulbactam Sodium (Unasyn) 3 gm Q6HRS IV ; Start 01/27/17 at 18:00; Stop 01/27/17 at 18:00; Status DC Bisacodyl (Dulcolax Supp) 10 mg PRN DAILY PRN RC CONSTIPATION; Start 01/27/17 at 15:30; Stop 01/27/17 at 15:52; Status DC Levothyroxine Sodium (Synthroid) 75 mcg DAILY PO ; Start 01/28/17 at 09:00; Stop 01/28/17 at 09:00; Status DC Magnesium Hydroxide (Milk Of Magnesia) 2,400 mg PRN DAILY PO ; Start 01/27/17 at 15:30; Stop 01/27/17 at 15:52; Status DC Metronidazole (Flagyl) 500 mg TID PO ; Start 01/27/17 at 21:00; Stop 01/27/17 at 21:00; Status DC Mirtazapine (Remeron) 15 mg QHS PO ; Start 01/27/17 at 21:00; Stop 01/27/17 at 21:00; Status DC Pantoprazole Sodium (Protonix) 40 mg BID PO ; Start 01/27/17 at 21:00; Stop 11/03 at 21:00; Status DC Senna/Docusate Sodium (Senna Plus) 2 tab Q12HR PRN PO CONSTIPATION; Start 01/27 at 15:30; Stop 01/27/17 at 15:52; Status DC Zolpidem Tartrate (Ambien) 5 mg QHS PO ; Start 01/27/17 at 21:00; Stop 01/27/17 at 21:00; Status DC Non-Formulary Medication 324 mg DAILY PO ; Start 01/28/17 at 09:00; Stop at 09:00; Status DC Non-Formulary Medication 10 unit QHS SQ ; Start 01/27/17 at 21:00; Stop at 21:00; Status DC Non-Formulary Medication 1 tab QHS PRN PO INSOMNIA; Start 01/27/17 at 15:30; Stop 01/27/17 at 15:52; Status DC Non-Formulary Medication 1 each DAILY PO ; Start 01/28/17 at 09:00; Stop at 09:00; Status DC Ondansetron HCl (Zofran Odt) 4 mg PRN Q6HRS PRN PO NAUSEA/VOMITING; Start 01/27 at 16:00 Non-Formulary Medication 1 tab Q4HRS PRN PO PAIN; Start 01/27/17 at 15:30; Stop 01/27/17 at 15:52; Status DC Non-Formulary Medication 20 mg BID PO ; Start 01/27/17 at 21:00; Stop 01/27/17 at 21:00; Status DC Metronidazole (Flagyl) 500 mg TID PO Last administered on 01/30/17 08:07; Start 01/27/17 at 16:30 Acetaminophen (Tylenol) 650 mg PRN Q4HRS PRN PO PAIN Last administered on 08:07; Start 01/27/17 at 15:45 Furosemide (Lasix) 20 mg DAILY PO Last administered on 01/30/17 08:07; Start 01/27/17 at 16:30 Gentamicin Sulfate (Garamycin) 1 sharonda PRN Q8HRS PRN TP . Last administered on 16:33; Start 01/27/17 at 21:00 Acetaminophen/ Hydrocodone Bitart (Lortab 5/325) 1 tab PRN Q4HRS PRN PO PAIN Last administered on 01/30/17 04:07; Start 01/27/17 at 16:00 Vancomycin HCl 250 mg [id number] PO Last administered on 01/29/17 20:28; Start at 17:00; Stop 01/30/17 at 08:05; Status DC Pantoprazole Sodium 40 mg 40 mg DAILYAC PO Last administered on 01/30/17 08:07 ; Start 01/28/17 at 07:30 Ceftriaxone Sodium/Sodium Chloride (Rocephin/Iv Sodium Chloride 0.9% 50ml) 50 ml @ 100 mls/hr Q24H IV Last administered on 01/29/17 17:21; Start 01/27/17 at 17:00; Stop 01/30/17 at 07:59; Status DC Morphine Sulfate 4 mg PRN Q2HR PRN IV PAIN Last administered on 01/30/17 12:08 ; Start 01/27/17 at 16:15 Oxycodone/ Acetaminophen 1 tab 1 tab PRN Q6HRS PRN PO PAIN Last administered on 01/30/17 10:16; Start 01/27/17 at 16:15 Dextrose/Sodium Chloride (Iv D5% - 1/2 NS) 1,000 ml @ 100 mls/hr Q10H IV Last administered on 01/27/17 20:47; Start 01/28/17 at 02:15; Stop 01/28/17 at 19:30 ; Status DC Insulin Aspart (Novolog) 0-5 UNITS TIDWMEALS SQ Last administered on 01/30/17 12:15; Start 01/28/17 at 12:00 Dextrose 12.5 gm PRN Q15MIN PRN IV SEE COMMENTS; Start 01/28/17 at 11:00; Status UNV Lidocaine/Sodium Bicarbonate 20 ml 20 ml STK-MED ONCE IJ ; Start 01/28/17 at 13: 49; Stop 01/28/17 at 13:50; Status DC Heparin Sodium/ Sodium Chloride 500 ml @ As Directed STK-MED ONCE .ROUTE ; Start 01/28/17 at 13:49; Stop 01/28/17 at 13:50; Status DC Lidocaine/Sodium Bicarbonate (Buffered Lidocaine 1%) 3 ml 1X ONCE IJ Last administered on 01/28/17 14:34; Start 01/28/17 at 14:15; Stop 01/28/17 at 14:16 ; Status DC Heparin Sodium/ Sodium Chloride 40 unit 1X ONCE IV Last administered on 14:34; Start 01/28/17 at 14:15; Stop 01/28/17 at 14:16; Status DC Insulin Aspart (Novolog) 5 units 1X ONCE SQ Last administered on 01/28/17 17: 27; Start 01/28/17 at 17:00; Stop 01/28/17 at 17:01; Status DC Guaifenesin (Robitussin) 200 mg PRN Q4HRS PRN PO COUGH Last administered on 12:07; Start 01/29/17 at 11:30 Throat Lozenges (Cepacol Sore Throat Lozenge) 1 alejo PRN Q2HRS PRN PO SORE THROAT Last administered on 01/30/17 12:07; Start 01/29/17 at 11:30 Guaifenesin 5 ml 5 ml PRN Q4HRS PRN PO COUGH Last administered on 01/30/17 08: 07; Start 01/29/17 at 11:45 Sodium Chloride 1,000 ml @ 75 mls/hr [id number] IV Last administered on 06:32; Start 01/29/17 at 11:45 Cefepime HCl/ Sodium Chloride (Maxipime/Iv Sodium Chloride 0.9% 50ml) 50 ml @ 100 mls/hr Q8HRS IV Last administered on 01/30/17 10:17; Start 01/30/17 at 08: 00 Vancomycin HCl 125 mg BID PO Last administered on 01/30/17 10:18; Start at 09:00 Vancomycin HCl (Vanco Per Pharmacy) 1 each PRN DAILY PRN MC SEE COMMENTS; Start 01/30/17 at 08:00 Levofloxacin (Levaquin) 750 mg 1X ONCE PO Last administered on 01/30/17 10:15 ; Start 01/30/17 at 08:00; Stop 01/30/17 at 08:09; Status DC Lactobacillus Acidophilus 1 tab 1 tab TIDWMEALS PO Last administered on 12:07; Start 01/30/17 at 08:00 Vancomycin HCl/ Sodium Chloride (Iv Sodium Chloride 0.9% 500ml Bag) 500 ml @ 250 mls/hr 1X ONCE IV Last administered on 01/30/17t 10:17; Start 01/30/17 at 08:30; Stop 01/30/17 at 10:29; Status DC Active Scripts Active Reported Vancomycin HCl 125 Mg/2.5 Ml Syringe 250 Mg PO QID Novolog (Insulin Aspart) 100 Unit/1 Ml Cartridge 6 Unit SQ TIDBFRMEAL Levemir (Insulin Detemir) 100 Unit/1 Ml Vial 14 Unit SQ HS Furosemide 20 Mg Tablet 20 Mg PO DAILY Hydrocodone-Apap 5-300 (Hydrocodone Bit/Acetaminophen) 1 Each Tablet 1 Tab PO PRN Q4HRS PRN Gentamicin Sulfate 0.1% Oint (Gentamicin Sulfate) 15 Gm Oint...g. 1 Sharonda TP PRN Q8HRS PRN DIRECTED BY PHYSICIAN Acetaminophen 325 Mg Tablet 650 Mg PO PRN Q4HRS PRN Milk Of Magnesia (Magnesium Hydroxide) 400 Mg/5 Ml Oral.susp 30 Ml PO PRN DAILY Ondansetron Hcl 4 Mg Tablet 1 Tab PO PRN Q12HR PRN Pantoprazole Sodium 40 Mg Tablet. 1 Tab PO DAILY Flagyl (Metronidazole) 500 Mg Tablet 500 Mg PO TID Vitals/I & O Vital Sign - Last 24 Hours 01/29/17 01/29/17 01/29/17 01/29/17 14:56 17:23 18:22 18:37 Temp 101.3 100.6 99.9 101.3 100.6 99.9 Pulse 85 83 85 Resp 20 18 20 B/P 129/54 115/39 116/49 Pulse Ox 98 98 O2 Delivery Room Air Room Air 01/29/17 01/29/17 01/29/17 01/29/17 18:37 19:00 19:37 19:46 Temp 99.9 98.1 101.7 98.1 99.9 98.1 101.7 98.1 Pulse 85 61 61 Resp 20 18 18 B/P 116/49 122/57 122/57 98.1 Pulse Ox 98 O2 Delivery Room Air 01/29/17 01/29/17 01/29/17 01/29/17 20:00 20:29 21:03 21:43 Temp 99.1 99.7 99.1 99.7 Pulse 67 57 Resp 20 18 B/P 144/62 138/91 Pulse Ox 98 O2 Delivery Room Air Room Air 01/29/17 01/30/17 01/30/17 01/30/17 23:12 03:34 04:07 05:07 Temp 102.0 101.8 102.0 101.8 Pulse 61 63 Resp 18 18 20 B/P 132/52 129/52 Pulse Ox 96 94 96 96 O2 Delivery Room Air Room Air Room Air Room Air 01/30/17 01/30/17 01/30/17 07:00 08:00 11:00 Temp 101.8 100.9 101.8 100.9 Pulse 58 54 Resp 14 14 B/P 142/54 130/54 Pulse Ox 97 97 O2 Delivery Room Air Room Air Room Air Intake and Output 01/29/17 01/29/17 01/30/17 15:00 23:00 07:00 Intake Total 240 ml 775 ml 480 ml Balance 240 ml 775 ml 480 ml ADELSO JEFF III DO Jan 30, 2017 13:43
[2017-01-30] MEDS: VANCOMYCIN PER PHARMACY MC PRN (14:26)
[2017-01-30 14:38] VITALS: BP 136/60
--- NOTE | 2017-01-30 14:48 | RAD ---
Portable chest, 01/30/2017: History: Fever and cough Comparison is made to a study from 01/27/2017. A left PICC has been inserted extending to the level of the atriocaval junction. The heart size and pulmonary vascularity are normal. There is mild tortuosity of the thoracic aorta. There appears to be minimal basilar atelectasis. No consolidating infiltrate is seen. There is no evidence of pleural fluid. Vertebroplasty changes are noted in the upper lumbar region. IMPRESSION: 1. Minimal bibasilar atelectasis. 2. Interval insertion of a left PICC in satisfactory position.
[2017-01-30 19:00] VITALS: BP 132/78
[2017-01-30 22:43] VITALS: BP 135/76
[2017-01-31] MEDS: GUAIFENESIN 200 MG/10 ML LIQUID. PO PRN (01:22)
[2017-01-31] MEDS: MORPHINE SULFATE 4 MG/ML DISP.SYRIN. IV PRN ×4 (01:23→14:40)
[2017-01-31 02:40] VITALS: BP 140/56
[2017-01-31] MEDS: IV NORMAL SALINE 1000ML BAG 1,000 ML IV SCH ×2 (03:45→17:05)
[2017-01-31] MEDS: BENZOCAINE/MENTHOL LOZENGE. PO PRN ×2 (05:04→15:03)
[2017-01-31] MEDS: CEFEPIME HCL 1 GM in IV NORMAL SALINE 50ML 50 ML IV SCH (05:05)
[2017-01-31 05:19] LABS: BASO # 0.1 x10^3/uL (0.0-0.2); BASO % 1 % (0-3); EOS % 4 % (0-3); HEMATOCRIT 28.3 % (36.0-47.0); HEMOGLOBIN 9.1 g/dL (12.0-15.5); LYMPH # 1.5 x10^3/uL (1.0-4.8); LYMPH % 24 % (24-48); MEAN CORPUSCULAR HEMOGLOBIN 29 pg (25-35); MEAN CORPUSCULAR HGB CONC 32 g/dL (31-37); MEAN CORPUSCULAR VOLUME 92 fL (79-100); MONO % 12 % (0-9); NEUT % 60 % (31-73); PLATELET COUNT 183 x10^3/uL (140-400); RED BLOOD COUNT 3.08 x10^6/uL (3.50-5.40); RED CELL DISTRIBUTION WIDTH 14.3 % (11.5-14.5); WHITE BLOOD COUNT 6.4 x10^3/uL (4.0-11.0)
[2017-01-31 05:29] LABS: CALCIUM 7.7 mg/dL (8.5-10.1); CREATININE 1.1 mg/dL (0.6-1.0); GFR 60.5; POTASSIUM 4.7 mmol/L (3.5-5.1)
[2017-01-31 07:10] VITALS: BP 141/64
[2017-01-31] MEDS: VANCOMYCIN 125 MG/2.5 ML ORAL SOLUTION. PO SCH ×2 (08:08→21:24)
[2017-01-31] MEDS: OXYCODONE/APAP 5/325 TABLET. PO PRN ×2 (08:09→17:48)
[2017-01-31] MEDS: METRONIDAZOLE 500 MG TABLET. PO SCH ×3 (08:10→21:21)
[2017-01-31] MEDS: FUROSEMIDE 20 MG TABLET PO SCH (08:10)
[2017-01-31] MEDS: PANTOPRAZOLE 40 MG TABLET. PO SCH (08:10)
[2017-01-31] MEDS: LACTOBACILLUS ACIDOPH & BULGAR 1 TABLET. PO SCH ×3 (08:10→16:52)
[2017-01-31] MEDS: INSULIN ASPART 300 UNITS/3 ML INSULN.PEN SQ SCH ×4 (08:18→17:22)
--- NOTE | 2017-01-31 08:43 | PDOC ---
Infectious Disease Note Subjective Subjective Complaining of cough this am. Some better No diarrhea this morning ROS ROS GEN: Denies fevers, chills, sweats HEENT: Denies blurred vision, sore throat CV: Denies chest pain RESP: Denies shortness of air, cough GI: Denies n/v/d NEURO: Denies confusion, dizziness MSK: Denies weakness, joint pain/swelling Vital Sign Vital Signs Vital Signs Date Time Temp Pulse Resp B/P Pulse Ox O2 Delivery O2 Flow Rate FiO2 01/31/17 08:09 95 Room Air 01/31/17 07:10 99.4 56 16 141/64 99.4 Physical Exam PHYSICAL EXAM GENERAL: NAD, Alert, looks ok. Eating HEENT: PERRL, OC/OP - clear NECK: Supple, no JVD, no LN LUNGS: Clear HEART: S1S2, no gallop, no murmur ABD: Soft, NT, no organomegaly, no rebound EXT: No edema, no cyanosis. Legs dressed COMMUNITY RELATIONS LIAISON: Alert, oriented x 3, no focal neurologic deficit SKIN: No rash IV: PICC LUE clean Labs Lab Laboratory Tests Test 01/30/17 11:35 01/30/17 16:25 01/30/17 20:28 01/31/17 05:00 Glucose (Fingerstick) 268mg/dL (70-99) 251mg/dL (70-99) 244mg/dL (70-99) White Blood Count 6.4x10^3/uL (4.0-11.0) Red Blood Count 3.08x10^6/uL (3.50-5.40) Hemoglobin 9.1g/dL (12.0-15.5) Hematocrit 28.3% (36.0-47.0) Mean Corpuscular Volume 92fL (79-100) Mean Corpuscular Hemoglobin 29pg (25-35) Mean Corpuscular Hemoglobin Concent 32g/dL (31-37) Red Cell Distribution Width 14.3% (11.5-14.5) Platelet Count 183x10^3/uL (140-400) Neutrophils (%) (Auto) 60% (31-73) Lymphocytes (%) (Auto) 24% (24-48) Monocytes (%) (Auto) 12% (0-9) Eosinophils (%) (Auto) 4% (0-3) Basophils (%) (Auto) 1% (0-3) Neutrophils # (Auto) 3.8x10^3uL (1.8-7.7) Lymphocytes # (Auto) 1.5x10^3/uL (1.0-4.8) Monocytes # (Auto) 0.7x10^3/uL (0.0-1.1) Eosinophils # (Auto) 0.3x10^3/uL (0.0-0.7) Basophils # (Auto) 0.1x10^3/uL (0.0-0.2) Sodium Level 139mmol/L (136-145) Potassium Level 4.7mmol/L (3.5-5.1) Chloride Level 110mmol/L (98-107) Carbon Dioxide Level 21mmol/L (21-32) Anion Gap 8 (6-14) Blood Urea Nitrogen 12mg/dL (7-20) Creatinine 1.1mg/dL (0.6-1.0) Estimated GFR (Cockcroft-Gault) 60.5 Glucose Level 261mg/dL (70-99) Calcium Level 7.7mg/dL (8.5-10.1) Test 01/31/17 07:07 Glucose (Fingerstick) 255mg/dL (70-99) Micro Escherichia coli Greater than 100,000 colony forming units per mL ANTIMICROBIAL SUSCEPTIBILITY Final Comment S = Susceptible; I = Intermediate; R = Resistant P = Positive; N = Negative MICS are expressed in micrograms per mL Antibiotic RSLT#1 RSLT#2 RSLT#3 RSLT#4 Amoxicillin/Clavulanic Acid S Ampicillin R Cefepime S Ceftriaxone S Cefuroxime I Cephalothin I Ciprofloxacin S Ertapenem S Gentamicin R Imipenem S Levofloxacin S Nitrofurantoin S Piperacillin R Tetracycline S Tobramycin I Trimethoprim/Sulfa S Objective Assessment Fever - improved from 01/30 Cough and congestion - CXR and Flu - neg Hypoglycemia Ecoli UTI with symptoms but ? contaminated UA.Sens to Rocephin/Quinolones Leukocytosis - better Sulfa allergy ? reaction Heel and buttock wounds not observed as she is planning to go to [employer] did not to be disturbed Plan Plan of Care Cont Vanc/Levoflox for atypical D/c Cefepime - CXR neg Cont Po vanc but BID and Flagyl (may be beneficial for wounds?) Blood cults times 2, await results Probiotics F/u labs and cults CODY WRIGHT MD Jan 31, 2017 08:43
--- NOTE | 2017-01-31 10:23 | PDOC ---
PROGRESS NOTES Chief Complaint Chief Complaint Altered mental status History of Present Illness History of Present Illness No acute events overnight. Patient continue to report a cough and sore throat, but otherwise feels better. Her CXR revealed minimal bibasilar atelectasis. Discussed possible SNU after discharge, patient is agreeable to evaluation by social work. Vitals Vitals Vital Signs Date Time Temp Pulse Resp B/P Pulse Ox O2 Delivery O2 Flow Rate FiO2 01/31/17 09:09 95 Room Air 01/31/17 07:10 99.4 56 16 141/64 99.4 Physical Exam General: Alert, Cooperative, No acute distress Heart: Regular rate, No murmurs Lungs: Clear, Other (cough, no wheezing) Abdomen: Normal bowel sounds, Soft, No tenderness Extremities: No cyanosis, No edema Skin: No rashes, Other (wound to L heel, R lower leg dressed appropriately ) Labs LABS Laboratory Tests Test 01/30/17 11:35 01/30/17 16:25 01/30/17 20:28 01/31/17 05:00 Glucose (Fingerstick) 268mg/dL (70-99) 251mg/dL (70-99) 244mg/dL (70-99) White Blood Count 6.4x10^3/uL (4.0-11.0) Red Blood Count 3.08x10^6/uL (3.50-5.40) Hemoglobin 9.1g/dL (12.0-15.5) Hematocrit 28.3% (36.0-47.0) Mean Corpuscular Volume 92fL (79-100) Mean Corpuscular Hemoglobin 29pg (25-35) Mean Corpuscular Hemoglobin Concent 32g/dL (31-37) Red Cell Distribution Width 14.3% (11.5-14.5) Platelet Count 183x10^3/uL (140-400) Neutrophils (%) (Auto) 60% (31-73) Lymphocytes (%) (Auto) 24% (24-48) Monocytes (%) (Auto) 12% (0-9) Eosinophils (%) (Auto) 4% (0-3) Basophils (%) (Auto) 1% (0-3) Neutrophils # (Auto) 3.8x10^3uL (1.8-7.7) Lymphocytes # (Auto) 1.5x10^3/uL (1.0-4.8) Monocytes # (Auto) 0.7x10^3/uL (0.0-1.1) Eosinophils # (Auto) 0.3x10^3/uL (0.0-0.7) Basophils # (Auto) 0.1x10^3/uL (0.0-0.2) Sodium Level 139mmol/L (136-145) Potassium Level 4.7mmol/L (3.5-5.1) Chloride Level 110mmol/L (98-107) Carbon Dioxide Level 21mmol/L (21-32) Anion Gap 8 (6-14) Blood Urea Nitrogen 12mg/dL (7-20) Creatinine 1.1mg/dL (0.6-1.0) Estimated GFR (Cockcroft-Gault) 60.5 Glucose Level 261mg/dL (70-99) Calcium Level 7.7mg/dL (8.5-10.1) Test 01/31/17 07:07 Glucose (Fingerstick) 255mg/dL (70-99) Review of Systems Review of Systems Denies chest pain and shortness of breath. Denies fever and chills. Reports cough and sore throat. Assessment and Plan Assessmemt and Plan Problems Medical Problems: (1) Altered mental state Status: Acute (2) Hypoglycemia Status: Acute (3) UTI (urinary tract infection) Status: Acute ASSESSMENT: Hypoglycemia Altered mental status Metabolic encephalopathy Dm2, poor control UTI C. diff colitis Severe malnutrition Anemia of CKD Leukocytosis without other SIRS criteria - Resolved Cognitive decline vs early dementia PLAN: Consulted Social work for initial SNU eval, their recommendations are appreciated Continue Robitussin DM Continue sliding scale insulin Continue pain control Renal and ID are following, their recommendations are appreciated Continue antibiotics per ID Continue wound care PT/OT to eval and treat Continue to monitor daily labs Problems: Comment Review of Relevant I have reviewed the following items yariel (where applicable) has been applied. Labs Laboratory Tests Test 01/29/17 15:45 01/29/17 16:47 01/29/17 20:39 01/30/17 05:38 Hemoglobin 7.9g/dL (12.0-15.5) 9.2g/dL (12.0-15.5) Hematocrit 24.6% (36.0-47.0) 28.5% (36.0-47.0) Glucose (Fingerstick) 316mg/dL (70-99) 191mg/dL (70-99) White Blood Count 6.1x10^3/uL (4.0-11.0) Red Blood Count 3.13x10^6/uL (3.50-5.40) Mean Corpuscular Volume 91fL (79-100) Mean Corpuscular Hemoglobin 30pg (25-35) Mean Corpuscular Hemoglobin Concent 32g/dL (31-37) Red Cell Distribution Width 14.4% (11.5-14.5) Platelet Count 183x10^3/uL (140-400) Neutrophils (%) (Auto) 68% (31-73) Lymphocytes (%) (Auto) 17% (24-48) Monocytes (%) (Auto) 10% (0-9) Eosinophils (%) (Auto) 5% (0-3) Basophils (%) (Auto) 1% (0-3) Neutrophils # (Auto) 4.1x10^3uL (1.8-7.7) Lymphocytes # (Auto) 1.0x10^3/uL (1.0-4.8) Monocytes # (Auto) 0.6x10^3/uL (0.0-1.1) Eosinophils # (Auto) 0.3x10^3/uL (0.0-0.7) Basophils # (Auto) 0.1x10^3/uL (0.0-0.2) Sodium Level 141mmol/L (136-145) Potassium Level 5.3mmol/L (3.5-5.1) Chloride Level 111mmol/L (98-107) Carbon Dioxide Level 23mmol/L (21-32) Anion Gap 7 (6-14) Blood Urea Nitrogen 14mg/dL (7-20) Creatinine 1.4mg/dL (0.6-1.0) Estimated GFR (Cockcroft-Gault) 45.8 Glucose Level 271mg/dL (70-99) Calcium Level 7.7mg/dL (8.5-10.1) Test 01/30/17 06:59 01/30/17 08:30 01/30/17 11:35 01/30/17 16:25 Glucose (Fingerstick) 237mg/dL (70-99) 268mg/dL (70-99) 251mg/dL (70-99) Influenza Type A Antigen Negative (NEGATIVE) Influenza Type B Antigen Negative (NEGATIVE) Test 01/30/17 20:28 01/31/17 05:00 01/31/17 07:07 Glucose (Fingerstick) 244mg/dL (70-99) 255mg/dL (70-99) White Blood Count 6.4x10^3/uL (4.0-11.0) Red Blood Count 3.08x10^6/uL (3.50-5.40) Hemoglobin 9.1g/dL (12.0-15.5) Hematocrit 28.3% (36.0-47.0) Mean Corpuscular Volume 92fL (79-100) Mean Corpuscular Hemoglobin 29pg (25-35) Mean Corpuscular Hemoglobin Concent 32g/dL (31-37) Red Cell Distribution Width 14.3% (11.5-14.5) Platelet Count 183x10^3/uL (140-400) Neutrophils (%) (Auto) 60% (31-73) Lymphocytes (%) (Auto) 24% (24-48) Monocytes (%) (Auto) 12% (0-9) Eosinophils (%) (Auto) 4% (0-3) Basophils (%) (Auto) 1% (0-3) Neutrophils # (Auto) 3.8x10^3uL (1.8-7.7) Lymphocytes # (Auto) 1.5x10^3/uL (1.0-4.8) Monocytes # (Auto) 0.7x10^3/uL (0.0-1.1) Eosinophils # (Auto) 0.3x10^3/uL (0.0-0.7) Basophils # (Auto) 0.1x10^3/uL (0.0-0.2) Sodium Level 139mmol/L (136-145) Potassium Level 4.7mmol/L (3.5-5.1) Chloride Level 110mmol/L (98-107) Carbon Dioxide Level 21mmol/L (21-32) Anion Gap 8 (6-14) Blood Urea Nitrogen 12mg/dL (7-20) Creatinine 1.1mg/dL (0.6-1.0) Estimated GFR (Cockcroft-Gault) 60.5 Glucose Level 261mg/dL (70-99) Calcium Level 7.7mg/dL (8.5-10.1) Laboratory Tests Test 01/30/17 11:35 01/30/17 16:25 01/30/17 20:28 01/31/17 05:00 Glucose (Fingerstick) 268mg/dL (70-99) 251mg/dL (70-99) 244mg/dL (70-99) White Blood Count 6.4x10^3/uL (4.0-11.0) Red Blood Count 3.08x10^6/uL (3.50-5.40) Hemoglobin 9.1g/dL (12.0-15.5) Hematocrit 28.3% (36.0-47.0) Mean Corpuscular Volume 92fL (79-100) Mean Corpuscular Hemoglobin 29pg (25-35) Mean Corpuscular Hemoglobin Concent 32g/dL (31-37) Red Cell Distribution Width 14.3% (11.5-14.5) Platelet Count 183x10^3/uL (140-400) Neutrophils (%) (Auto) 60% (31-73) Lymphocytes (%) (Auto) 24% (24-48) Monocytes (%) (Auto) 12% (0-9) Eosinophils (%) (Auto) 4% (0-3) Basophils (%) (Auto) 1% (0-3) Neutrophils # (Auto) 3.8x10^3uL (1.8-7.7) Lymphocytes # (Auto) 1.5x10^3/uL (1.0-4.8) Monocytes # (Auto) 0.7x10^3/uL (0.0-1.1) Eosinophils # (Auto) 0.3x10^3/uL (0.0-0.7) Basophils # (Auto) 0.1x10^3/uL (0.0-0.2) Sodium Level 139mmol/L (136-145) Potassium Level 4.7mmol/L (3.5-5.1) Chloride Level 110mmol/L (98-107) Carbon Dioxide Level 21mmol/L (21-32) Anion Gap 8 (6-14) Blood Urea Nitrogen 12mg/dL (7-20) Creatinine 1.1mg/dL (0.6-1.0) Estimated GFR (Cockcroft-Gault) 60.5 Glucose Level 261mg/dL (70-99) Calcium Level 7.7mg/dL (8.5-10.1) Test 01/31/17 07:07 Glucose (Fingerstick) 255mg/dL (70-99) Microbiology 01/30/17 Blood Culture - Preliminary, Resulted NO GROWTH AFTER 1 DAY 01/27/17 Urine Culture - Final, Complete 01/27/17 Urine Culture Result 1 (URSULA) - Final, Complete 01/27/17 Antimicrobic Susceptibility - Final, Complete Medications Current Medications Dextrose 1,000 ml @ 75 mls/hr 1X ONCE IV ; Start 01/27/17 at 10:00; Stop 01/27 at 23:19; Status Cancel Dextrose 25 gm 25 gm 1X ONCE IV Last administered on 01/27/17 10:06; Start at 10:00; Stop 01/27/17 at 10:01; Status DC Dextrose/Sodium Chloride 500 ml @ 0 mls/hr 1X ONCE IV ; Start 01/27/17 at 10:00 ; Stop 01/27/17 at 10:03; Status DC Dextrose/Sodium Chloride (Iv D5% - 1/2 NS) 1,000 ml @ 125 mls/hr 1X ONCE IV Last administered on 01/27/17 10:09; Start 01/27/17 at 10:15; Stop 01/27/17 at 18:14; Status DC Ondansetron HCl (Zofran) 4 mg PRN Q8HRS PRN IV NAUSEA/VOMITING; Start 01/27/17 at 10:45; Stop 01/28/17 at 10:44; Status DC Acetaminophen (Tylenol) 650 mg PRN Q4HRS PRN PO FEVER Last administered on 01/28 04:15; Start 01/27/17 at 10:45; Stop 01/28/17 at 10:44; Status DC Insulin Aspart (Novolog) 0-7 UNITS TIDWMEALS SQ ; Start 01/27/17 at 17:00; Stop 01/27/17 at 17:00; Status DC Dextrose 12.5 gm PRN Q15MIN PRN IV SEE COMMENTS; Start 01/27/17 at 15:30 Ampicillin Sodium/ Sulbactam Sodium (Unasyn) 3 gm Q6HRS IV ; Start 01/27/17 at 18:00; Stop 01/27/17 at 18:00; Status DC Bisacodyl (Dulcolax Supp) 10 mg PRN DAILY PRN RC CONSTIPATION; Start 01/27/17 at 15:30; Stop 01/27/17 at 15:52; Status DC Levothyroxine Sodium (Synthroid) 75 mcg DAILY PO ; Start 01/28/17 at 09:00; Stop 01/28/17 at 09:00; Status DC Magnesium Hydroxide (Milk Of Magnesia) 2,400 mg PRN DAILY PO ; Start 01/27/17 at 15:30; Stop 01/27/17 at 15:52; Status DC Metronidazole (Flagyl) 500 mg TID PO ; Start 01/27/17 at 21:00; Stop 01/27/17 at 21:00; Status DC Mirtazapine (Remeron) 15 mg QHS PO ; Start 01/27/17 at 21:00; Stop 01/27/17 at 21:00; Status DC Pantoprazole Sodium (Protonix) 40 mg BID PO ; Start 01/27/17 at 21:00; Stop 11/03 at 21:00; Status DC Senna/Docusate Sodium (Senna Plus) 2 tab Q12HR PRN PO CONSTIPATION; Start 01/27 at 15:30; Stop 01/27/17 at 15:52; Status DC Zolpidem Tartrate (Ambien) 5 mg QHS PO ; Start 01/27/17 at 21:00; Stop 01/27/17 at 21:00; Status DC Non-Formulary Medication 324 mg DAILY PO ; Start 01/28/17 at 09:00; Stop at 09:00; Status DC Non-Formulary Medication 10 unit QHS SQ ; Start 01/27/17 at 21:00; Stop at 21:00; Status DC Non-Formulary Medication 1 tab QHS PRN PO INSOMNIA; Start 01/27/17 at 15:30; Stop 01/27/17 at 15:52; Status DC Non-Formulary Medication 1 each DAILY PO ; Start 01/28/17 at 09:00; Stop at 09:00; Status DC Ondansetron HCl (Zofran Odt) 4 mg PRN Q6HRS PRN PO NAUSEA/VOMITING; Start 01/27 at 16:00 Non-Formulary Medication 1 tab Q4HRS PRN PO PAIN; Start 01/27/17 at 15:30; Stop 01/27/17 at 15:52; Status DC Non-Formulary Medication 20 mg BID PO ; Start 01/27/17 at 21:00; Stop 01/27/17 at 21:00; Status DC Metronidazole (Flagyl) 500 mg TID PO Last administered on 01/31/17 08:10; Start 01/27/17 at 16:30 Acetaminophen (Tylenol) 650 mg PRN Q4HRS PRN PO MILD PAIN / TEMP Last administered on 01/30/17 15:08; Start 01/27/17 at 15:45 Furosemide (Lasix) 20 mg DAILY PO Last administered on 01/31/17 08:10; Start 01/27/17 at 16:30 Gentamicin Sulfate (Garamycin) 1 sharonda PRN Q8HRS PRN TP . Last administered on 16:33; Start 01/27/17 at 21:00 Acetaminophen/ Hydrocodone Bitart (Lortab 5/325) 1 tab PRN Q4HRS PRN PO PAIN Last administered on 01/30/17 04:07; Start 01/27/17 at 16:00 Vancomycin HCl 250 mg [id number] PO Last administered on 01/29/17 20:28; Start at 17:00; Stop 01/30/17 at 08:05; Status DC Pantoprazole Sodium 40 mg 40 mg DAILYAC PO Last administered on 01/31/17 08:10 ; Start 01/28/17 at 07:30 Ceftriaxone Sodium/Sodium Chloride (Rocephin/Iv Sodium Chloride 0.9% 50ml) 50 ml @ 100 mls/hr Q24H IV Last administered on 01/29/17 17:21; Start 01/27/17 at 17:00; Stop 01/30/17 at 07:59; Status DC Morphine Sulfate 4 mg PRN Q2HR PRN IV PAIN Last administered on 01/31/17 08:09 ; Start 01/27/17 at 16:15 Oxycodone/ Acetaminophen 1 tab 1 tab PRN Q6HRS PRN PO MODERATE - SEVERE PAIN Last administered on 01/31/17 08:09; Start 01/27/17 at 16:15 Dextrose/Sodium Chloride (Iv D5% - 1/2 NS) 1,000 ml @ 100 mls/hr Q10H IV Last administered on 01/27/17 20:47; Start 01/28/17 at 02:15; Stop 01/28/17 at 19:30 ; Status DC Insulin Aspart (Novolog) 0-5 UNITS TIDWMEALS SQ Last administered on 01/31/17 08:18; Start 01/28/17 at 12:00 Dextrose 12.5 gm PRN Q15MIN PRN IV SEE COMMENTS; Start 01/28/17 at 11:00; Status UNV Lidocaine/Sodium Bicarbonate 20 ml 20 ml STK-MED ONCE IJ ; Start 01/28/17 at 13: 49; Stop 01/28/17 at 13:50; Status DC Heparin Sodium/ Sodium Chloride 500 ml @ As Directed STK-MED ONCE .ROUTE ; Start 01/28/17 at 13:49; Stop 01/28/17 at 13:50; Status DC Lidocaine/Sodium Bicarbonate (Buffered Lidocaine 1%) 3 ml 1X ONCE IJ Last administered on 01/28/17 14:34; Start 01/28/17 at 14:15; Stop 01/28/17 at 14:16 ; Status DC Heparin Sodium/ Sodium Chloride 40 unit 1X ONCE IV Last administered on 14:34; Start 01/28/17 at 14:15; Stop 01/28/17 at 14:16; Status DC Insulin Aspart (Novolog) 5 units 1X ONCE SQ Last administered on 01/28/17 17: 27; Start 01/28/17 at 17:00; Stop 01/28/17 at 17:01; Status DC Guaifenesin (Robitussin) 200 mg PRN Q4HRS PRN PO COUGH Last administered on 01:22; Start 01/29/17 at 11:30 Throat Lozenges (Cepacol Sore Throat Lozenge) 1 alejo PRN Q2HRS PRN PO SORE THROAT Last administered on 01/31/17 05:04; Start 01/29/17 at 11:30 Guaifenesin 5 ml 5 ml PRN Q4HRS PRN PO COUGH Last administered on 01/30/17 08: 07; Start 01/29/17 at 11:45 Sodium Chloride 1,000 ml @ 75 mls/hr [id number] IV Last administered on 03:45; Start 01/29/17 at 11:45 Cefepime HCl/ Sodium Chloride (Maxipime/Iv Sodium Chloride 0.9% 50ml) 50 ml @ 100 mls/hr Q8HRS IV Last administered on 01/31/17 05:05; Start 01/30/17 at 08: 00; Stop 01/31/17 at 10:17; Status DC Vancomycin HCl 125 mg BID PO Last administered on 01/31/17 08:08; Start at 09:00 Vancomycin HCl (Vanco Per Pharmacy) 1 each PRN DAILY PRN MC SEE COMMENTS Last administered on 01/30/17 14:26; Start 01/30/17 at 08:00 Levofloxacin (Levaquin) 750 mg 1X ONCE PO Last administered on 01/30/17 10:15 ; Start 01/30/17 at 08:00; Stop 01/30/17 at 08:09; Status DC Lactobacillus Acidophilus 1 tab 1 tab TIDWMEALS PO Last administered on 08:10; Start 01/30/17 at 08:00 Vancomycin HCl 1.75 gm/Sodium Chloride 500 ml @ 250 mls/hr 1X ONCE IV Last administered on 01/30/17 10:17; Start 01/30/17 at 08:30; Stop 01/30/17 at 10:29 ; Status DC Vancomycin HCl/ Sodium Chloride (Iv Sodium Chloride 0.9% 250ml) 250 ml @ 250 mls/hr Q24H IV ; Start 01/31/17 at 10:00 Vancomycin HCl 1 each 1X ONCE MC ; Start 02/01/17 at 09:30; Stop 02/01/17 at 09 :31 Levofloxacin (Levaquin) 500 mg DAILY06 PO ; Start 02/01/17 at 06:00; Status UNV Active Scripts Active Reported Vancomycin HCl 125 Mg/2.5 Ml Syringe 250 Mg PO QID Novolog (Insulin Aspart) 100 Unit/1 Ml Cartridge 6 Unit SQ TIDBFRMEAL Levemir (Insulin Detemir) 100 Unit/1 Ml Vial 14 Unit SQ HS Furosemide 20 Mg Tablet 20 Mg PO DAILY Hydrocodone-Apap 5-300 (Hydrocodone Bit/Acetaminophen) 1 Each Tablet 1 Tab PO PRN Q4HRS PRN Gentamicin Sulfate 0.1% Oint (Gentamicin Sulfate) 15 Gm Oint...g. 1 Sharonda TP PRN Q8HRS PRN DIRECTED BY PHYSICIAN Acetaminophen 325 Mg Tablet 650 Mg PO PRN Q4HRS PRN Milk Of Magnesia (Magnesium Hydroxide) 400 Mg/5 Ml Oral.susp 30 Ml PO PRN DAILY Ondansetron Hcl 4 Mg Tablet 1 Tab PO PRN Q12HR PRN Pantoprazole Sodium 40 Mg Tablet. 1 Tab PO DAILY Flagyl (Metronidazole) 500 Mg Tablet 500 Mg PO TID Vitals/I & O Vital Sign - Last 24 Hours 01/30/17 01/30/17 01/30/17 01/30/17 11:00 14:38 19:00 20:00 Temp 100.9 100.8 99.0 100.9 100.8 99.0 Pulse 54 52 83 Resp B/P 130/54 136/60 132/78 Pulse Ox 97 98 94 O2 Delivery Room Air Room Air Room Air Room Air 01/30/17 01/30/17 01/31/17 01/31/17 20:34 22:43 01:23 02:40 Temp 99.8 98.9 99.8 98.9 Pulse 85 57 Resp 20 18 B/P 135/76 140/56 Pulse Ox 94 95 95 99 O2 Delivery Room Air Room Air Room Air Room Air 01/31/17 01/31/17 01/31/17 01/31/17 05:05 07:10 08:00 08:09 Temp 99.4 99.4 Pulse 56 Resp 16 B/P 141/64 Pulse Ox 99 95 95 O2 Delivery Room Air Room Air Room Air Room Air 01/31/17 01/31/17 01/31/17 08:09 08:39 09:09 Pulse Ox 95 95 95 O2 Delivery Room Air Room Air Room Air Intake and Output 01/30/17 01/30/1717 15:00 23:00 07:00 Intake Total 300 ml 50 ml 490 ml Output Total 1 ml Balance 300 ml 49 ml 490 ml ADELSO JEFF III DO Jan 31, 2017 10:23
[2017-01-31 10:52] VITALS: BP 145/49
[2017-01-31] MEDS: VANCOMYCIN 1 GM in IV NORMAL SALINE 250ML 250 ML IV SCH (11:00)
[2017-01-31] MEDS: LEVOFLOXACIN 500 MG TABLET PO SCH (11:00)
--- NOTE | 2017-01-31 12:07 | PDOC ---
Renal-Progress Notes Subjective Notes Notes NONE History of Present Illness Hx of present illness STABLE Vitals Vitals Vital Signs Date Time Temp Pulse Resp B/P Pulse Ox O2 Delivery O2 Flow Rate FiO2 01/31/17 10:52 98.9 55 16 145/49 96 Room Air 98.9 Weight Weight [ ] I.O. Intake and Output Intake and Output 01/31/17 07:00 Intake Total 840 ml Output Total 1 ml Balance 839 ml Intake Oral 740 ml IV Total 100 ml Stool Total 1 ml # Voids 6 Labs Labs Laboratory Tests Test 01/30/17 16:25 01/30/17 20:28 01/31/17 05:00 01/31/17 07:07 Glucose (Fingerstick) 251mg/dL (70-99) 244mg/dL (70-99) 255mg/dL (70-99) White Blood Count 6.4x10^3/uL (4.0-11.0) Red Blood Count 3.08x10^6/uL (3.50-5.40) Hemoglobin 9.1g/dL (12.0-15.5) Hematocrit 28.3% (36.0-47.0) Mean Corpuscular Volume 92fL (79-100) Mean Corpuscular Hemoglobin 29pg (25-35) Mean Corpuscular Hemoglobin Concent 32g/dL (31-37) Red Cell Distribution Width 14.3% (11.5-14.5) Platelet Count 183x10^3/uL (140-400) Neutrophils (%) (Auto) 60% (31-73) Lymphocytes (%) (Auto) 24% (24-48) Monocytes (%) (Auto) 12% (0-9) Eosinophils (%) (Auto) 4% (0-3) Basophils (%) (Auto) 1% (0-3) Neutrophils # (Auto) 3.8x10^3uL (1.8-7.7) Lymphocytes # (Auto) 1.5x10^3/uL (1.0-4.8) Monocytes # (Auto) 0.7x10^3/uL (0.0-1.1) Eosinophils # (Auto) 0.3x10^3/uL (0.0-0.7) Basophils # (Auto) 0.1x10^3/uL (0.0-0.2) Sodium Level 139mmol/L (136-145) Potassium Level 4.7mmol/L (3.5-5.1) Chloride Level 110mmol/L (98-107) Carbon Dioxide Level 21mmol/L (21-32) Anion Gap 8 (6-14) Blood Urea Nitrogen 12mg/dL (7-20) Creatinine 1.1mg/dL (0.6-1.0) Estimated GFR (Cockcroft-Gault) 60.5 Glucose Level 261mg/dL (70-99) Calcium Level 7.7mg/dL (8.5-10.1) Test 01/31/17 11:06 Glucose (Fingerstick) 343mg/dL (70-99) Micro Micro Microbiology 01/30/17 Blood Culture - Preliminary, Resulted NO GROWTH AFTER 1 DAY 01/27/17 Urine Culture - Final, Complete 01/27/17 Urine Culture Result 1 (URSULA) - Final, Complete 01/27/17 Antimicrobic Susceptibility - Final, Complete Review of Systems Constitutional: yes: alert, oriented Ears/Nose/Throat: Yes: no symptom reported Eyes: Yes: no symptom reported Pulmonary: Yes no symptom reported Cardiovascular: Yes no symptom reported Musculoskeletal: Yes: no symptom reported Psychiatric/Neurological: Yes: no symptom reported Physical Exam General Appearance: no apparent distress Respiratory: bilateral CTA Heart: S1S2 Abdomen: soft, bowel sounds present Extremities: pulses present Neurology: alert Musculoskeletal: low back pain, Osteoarthritis, Swelling Assessment Assessment IMP GNR UTI MAYNOR-RESOLVED CKD STAGE 3 WITH CR OF 1.3 HYPERKALEMIA-STABLE HYPOGLYCEMIA PLAN IVF'S ANTIBIOTICS WILL FOLLOW DANE MATIAS MD Jan 31, 2017 12:07
[2017-01-31 15:03] VITALS: BP 125/56
[2017-01-31] MEDS ORDERED: DEXTROSE 50% 25 GM / 50ML DISP.SYRIN. IV PRN (17:15)
[2017-01-31 19:00] VITALS: BP 119/64
[2017-01-31] MEDS ORDERED: INSULIN DETEMIR 300 UNITS/3 ML INSULN.PEN. SQ SCH (21:00)
[2017-01-31] MEDS: HYDROCODONE/APAP 5/325MG TABLET. PO PRN (21:23)
[2017-01-31] MEDS: GUAIFENESIN DM 200MG/20MG 10 ML SYRUP. PO PRN (21:30)
[2017-01-31 23:00] VITALS: BP 134/70
[2017-02-01] MEDS: OXYCODONE/APAP 5/325 TABLET. PO PRN ×3 (02:46→19:59)
[2017-02-01] MEDS: GUAIFENESIN DM 200MG/20MG 10 ML SYRUP. PO PRN ×2 (02:49→22:05)
[2017-02-01 03:00] VITALS: BP 117/57
[2017-02-01] MEDS: HYDROCODONE/APAP 5/325MG TABLET. PO PRN ×4 (06:02→22:55)
[2017-02-01] MEDS: LEVOFLOXACIN 500 MG TABLET PO SCH (06:02)
[2017-02-01 06:53] LABS: BASO # 0.1 x10^3/uL (0.0-0.2); BASO % 1 % (0-3); EOS % 4 % (0-3); HEMATOCRIT 31.9 % (36.0-47.0); HEMOGLOBIN 10.2 g/dL (12.0-15.5); LYMPH # 3.1 x10^3/uL (1.0-4.8); LYMPH % 32 % (24-48); MEAN CORPUSCULAR HEMOGLOBIN 29 pg (25-35); MEAN CORPUSCULAR HGB CONC 32 g/dL (31-37); MEAN CORPUSCULAR VOLUME 92 fL (79-100); MONO % 12 % (0-9); NEUT % 51 % (31-73); PLATELET COUNT 209 x10^3/uL (140-400); RED BLOOD COUNT 3.47 x10^6/uL (3.50-5.40); RED CELL DISTRIBUTION WIDTH 14.7 % (11.5-14.5); WHITE BLOOD COUNT 9.7 x10^3/uL (4.0-11.0)
[2017-02-01 07:00] VITALS: BP 133/62
[2017-02-01 07:07] LABS: CALCIUM 8.2 mg/dL (8.5-10.1); CREATININE 1.3 mg/dL (0.6-1.0); GFR 49.9; POTASSIUM 3.9 mmol/L (3.5-5.1)
[2017-02-01] MEDS: INSULIN ASPART 300 UNITS/3 ML INSULN.PEN SQ SCH ×6 (07:30→16:45)
[2017-02-01] MEDS: LACTOBACILLUS ACIDOPH & BULGAR 1 TABLET. PO SCH ×3 (08:07→16:33)
[2017-02-01] MEDS: METRONIDAZOLE 500 MG TABLET. PO SCH (08:07)
[2017-02-01] MEDS: PANTOPRAZOLE 40 MG TABLET. PO SCH (08:07)
[2017-02-01] MEDS: IV NORMAL SALINE 1000ML BAG 1,000 ML IV SCH ×2 (08:07→22:45)
[2017-02-01] MEDS: FUROSEMIDE 20 MG TABLET PO SCH (08:07)
--- NOTE | 2017-02-01 08:23 | PDOC ---
PROGRESS NOTES Chief Complaint Chief Complaint Altered mental status History of Present Illness History of Present Illness Patient had a blood glucose of 29 this morning. 12.5gm of dextrose was given with a rise in blood glucose to 88. We will decrease her insulin. She reports that she is still feeling a little shaky but otherwise feels well. Vitals Vitals Vital Signs Date Time Temp Pulse Resp B/P Pulse Ox O2 Delivery O2 Flow Rate FiO2 02/01/17 07:02 Room Air 02/01/17 07:00 97.7 52 18 133/62 98 97.7 Physical Exam General: Alert, Cooperative, No acute distress Heart: Regular rate, Normal S1, Normal S2 Lungs: Clear Abdomen: Soft, No tenderness Extremities: No edema, Normal pulses Skin: No rashes, Other (wound to L heel, R lower leg dressed appropriately ) Labs LABS Laboratory Tests Test 01/31/17 11:06 01/31/17 16:19 01/31/17 20:58 02/01/17 02:30 Glucose (Fingerstick) 343mg/dL (70-99) 308mg/dL (70-99) 200mg/dL (70-99) 115mg/dL (70-99) Test 02/01/17 06:30 02/01/17 07:33 White Blood Count 9.7x10^3/uL (4.0-11.0) Red Blood Count 3.47x10^6/uL (3.50-5.40) Hemoglobin 10.2g/dL (12.0-15.5) Hematocrit 31.9% (36.0-47.0) Mean Corpuscular Volume 92fL (79-100) Mean Corpuscular Hemoglobin 29pg (25-35) Mean Corpuscular Hemoglobin Concent 32g/dL (31-37) Red Cell Distribution Width 14.7% (11.5-14.5) Platelet Count 209x10^3/uL (140-400) Neutrophils (%) (Auto) 51% (31-73) Lymphocytes (%) (Auto) 32% (24-48) Monocytes (%) (Auto) 12% (0-9) Eosinophils (%) (Auto) 4% (0-3) Basophils (%) (Auto) 1% (0-3) Neutrophils # (Auto) 4.9x10^3uL (1.8-7.7) Lymphocytes # (Auto) 3.1x10^3/uL (1.0-4.8) Monocytes # (Auto) 1.1x10^3/uL (0.0-1.1) Eosinophils # (Auto) 0.4x10^3/uL (0.0-0.7) Basophils # (Auto) 0.1x10^3/uL (0.0-0.2) Sodium Level 138mmol/L (136-145) Potassium Level 3.9mmol/L (3.5-5.1) Chloride Level 112mmol/L (98-107) Carbon Dioxide Level 20mmol/L (21-32) Anion Gap 6 (6-14) Blood Urea Nitrogen 11mg/dL (7-20) Creatinine 1.3mg/dL (0.6-1.0) Estimated GFR (Cockcroft-Gault) 49.9 Glucose Level 29mg/dL (70-99) Calcium Level 8.2mg/dL (8.5-10.1) Glucose (Fingerstick) 88mg/dL (70-99) Review of Systems Review of Systems Denies shortness of breath and chest pain. Denies fever and chills. Reports some shakiness from low glucose earlier this morning. Assessment and Plan Assessmemt and Plan Problems Medical Problems: (1) Altered mental state Status: Acute (2) Hypoglycemia Status: Acute (3) UTI (urinary tract infection) Status: Acute ASSESSMENT: Hypoglycemia Altered mental status Metabolic encephalopathy Dm2, poor control UTI C. diff colitis Severe malnutrition Anemia of CKD Leukocytosis without other SIRS criteria - Resolved Cognitive decline vs early dementia PLAN: Decreased Novolog to 3u TID, decreased Levemir to 10u QHS Continue to monitor blood glucose Patient will return to [facility] upon discharge Continue Robitussin DM Continue sliding scale insulin Continue pain control Renal and ID are following, their recommendations are appreciated Continue antibiotics per ID Continue wound care PT/OT to eval and treat Continue to monitor daily labs Problems: Comment Review of Relevant I have reviewed the following items yariel (where applicable) has been applied. Labs Laboratory Tests Test 01/30/17 08:30 01/30/17 11:35 01/30/17 16:25 01/30/17 20:28 Influenza Type A Antigen Negative (NEGATIVE) Influenza Type B Antigen Negative (NEGATIVE) Glucose (Fingerstick) 268mg/dL (70-99) 251mg/dL (70-99) 244mg/dL (70-99) Test 01/31/17 05:00 01/31/17 07:07 01/31/17 11:06 01/31/17 16:19 White Blood Count 6.4x10^3/uL (4.0-11.0) Red Blood Count 3.08x10^6/uL (3.50-5.40) Hemoglobin 9.1g/dL (12.0-15.5) Hematocrit 28.3% (36.0-47.0) Mean Corpuscular Volume 92fL (79-100) Mean Corpuscular Hemoglobin 29pg (25-35) Mean Corpuscular Hemoglobin Concent 32g/dL (31-37) Red Cell Distribution Width 14.3% (11.5-14.5) Platelet Count 183x10^3/uL (140-400) Neutrophils (%) (Auto) 60% (31-73) Lymphocytes (%) (Auto) 24% (24-48) Monocytes (%) (Auto) 12% (0-9) Eosinophils (%) (Auto) 4% (0-3) Basophils (%) (Auto) 1% (0-3) Neutrophils # (Auto) 3.8x10^3uL (1.8-7.7) Lymphocytes # (Auto) 1.5x10^3/uL (1.0-4.8) Monocytes # (Auto) 0.7x10^3/uL (0.0-1.1) Eosinophils # (Auto) 0.3x10^3/uL (0.0-0.7) Basophils # (Auto) 0.1x10^3/uL (0.0-0.2) Sodium Level 139mmol/L (136-145) Potassium Level 4.7mmol/L (3.5-5.1) Chloride Level 110mmol/L (98-107) Carbon Dioxide Level 21mmol/L (21-32) Anion Gap 8 (6-14) Blood Urea Nitrogen 12mg/dL (7-20) Creatinine 1.1mg/dL (0.6-1.0) Estimated GFR (Cockcroft-Gault) 60.5 Glucose Level 261mg/dL (70-99) Calcium Level 7.7mg/dL (8.5-10.1) Glucose (Fingerstick) 255mg/dL (70-99) 343mg/dL (70-99) 308mg/dL (70-99) Test 01/31/17 20:58 02/01/17 02:30 02/01/17 06:30 02/01/17 07:33 Glucose (Fingerstick) 200mg/dL (70-99) 115mg/dL (70-99) 88mg/dL (70-99) White Blood Count 9.7x10^3/uL (4.0-11.0) Red Blood Count 3.47x10^6/uL (3.50-5.40) Hemoglobin 10.2g/dL (12.0-15.5) Hematocrit 31.9% (36.0-47.0) Mean Corpuscular Volume 92fL (79-100) Mean Corpuscular Hemoglobin 29pg (25-35) Mean Corpuscular Hemoglobin Concent 32g/dL (31-37) Red Cell Distribution Width 14.7% (11.5-14.5) Platelet Count 209x10^3/uL (140-400) Neutrophils (%) (Auto) 51% (31-73) Lymphocytes (%) (Auto) 32% (24-48) Monocytes (%) (Auto) 12% (0-9) Eosinophils (%) (Auto) 4% (0-3) Basophils (%) (Auto) 1% (0-3) Neutrophils # (Auto) 4.9x10^3uL (1.8-7.7) Lymphocytes # (Auto) 3.1x10^3/uL (1.0-4.8) Monocytes # (Auto) 1.1x10^3/uL (0.0-1.1) Eosinophils # (Auto) 0.4x10^3/uL (0.0-0.7) Basophils # (Auto) 0.1x10^3/uL (0.0-0.2) Sodium Level 138mmol/L (136-145) Potassium Level 3.9mmol/L (3.5-5.1) Chloride Level 112mmol/L (98-107) Carbon Dioxide Level 20mmol/L (21-32) Anion Gap 6 (6-14) Blood Urea Nitrogen 11mg/dL (7-20) Creatinine 1.3mg/dL (0.6-1.0) Estimated GFR (Cockcroft-Gault) 49.9 Glucose Level 29mg/dL (70-99) Calcium Level 8.2mg/dL (8.5-10.1) Laboratory Tests Test 01/31/17 11:06 01/31/17 16:19 01/31/17 20:58 02/01/17 02:30 Glucose (Fingerstick) 343mg/dL (70-99) 308mg/dL (70-99) 200mg/dL (70-99) 115mg/dL (70-99) Test 02/01/17 06:30 02/01/17 07:33 White Blood Count 9.7x10^3/uL (4.0-11.0) Red Blood Count 3.47x10^6/uL (3.50-5.40) Hemoglobin 10.2g/dL (12.0-15.5) Hematocrit 31.9% (36.0-47.0) Mean Corpuscular Volume 92fL (79-100) Mean Corpuscular Hemoglobin 29pg (25-35) Mean Corpuscular Hemoglobin Concent 32g/dL (31-37) Red Cell Distribution Width 14.7% (11.5-14.5) Platelet Count 209x10^3/uL (140-400) Neutrophils (%) (Auto) 51% (31-73) Lymphocytes (%) (Auto) 32% (24-48) Monocytes (%) (Auto) 12% (0-9) Eosinophils (%) (Auto) 4% (0-3) Basophils (%) (Auto) 1% (0-3) Neutrophils # (Auto) 4.9x10^3uL (1.8-7.7) Lymphocytes # (Auto) 3.1x10^3/uL (1.0-4.8) Monocytes # (Auto) 1.1x10^3/uL (0.0-1.1) Eosinophils # (Auto) 0.4x10^3/uL (0.0-0.7) Basophils # (Auto) 0.1x10^3/uL (0.0-0.2) Sodium Level 138mmol/L (136-145) Potassium Level 3.9mmol/L (3.5-5.1) Chloride Level 112mmol/L (98-107) Carbon Dioxide Level 20mmol/L (21-32) Anion Gap 6 (6-14) Blood Urea Nitrogen 11mg/dL (7-20) Creatinine 1.3mg/dL (0.6-1.0) Estimated GFR (Cockcroft-Gault) 49.9 Glucose Level 29mg/dL (70-99) Calcium Level 8.2mg/dL (8.5-10.1) Glucose (Fingerstick) 88mg/dL (70-99) Microbiology 01/30/17 Blood Culture - Preliminary, Resulted NO GROWTH AFTER 1 DAY 01/27/17 Urine Culture - Final, Complete 01/27/17 Urine Culture Result 1 (URSULA) - Final, Complete 01/27/17 Antimicrobic Susceptibility - Final, Complete Medications Current Medications Dextrose 1,000 ml @ 75 mls/hr 1X ONCE IV ; Start 01/27/17 at 10:00; Stop 01/27 at 23:19; Status Cancel Dextrose 25 gm 25 gm 1X ONCE IV Last administered on 01/27/17 10:06; Start at 10:00; Stop 01/27/17 at 10:01; Status DC Dextrose/Sodium Chloride 500 ml @ 0 mls/hr 1X ONCE IV ; Start 01/27/17 at 10:00 ; Stop 01/27/17 at 10:03; Status DC Dextrose/Sodium Chloride (Iv D5% - 1/2 NS) 1,000 ml @ 125 mls/hr 1X ONCE IV Last administered on 01/27/17 10:09; Start 01/27/17 at 10:15; Stop 01/27/17 at 18:14; Status DC Ondansetron HCl (Zofran) 4 mg PRN Q8HRS PRN IV NAUSEA/VOMITING; Start 01/27/17 at 10:45; Stop 01/28/17 at 10:44; Status DC Acetaminophen (Tylenol) 650 mg PRN Q4HRS PRN PO FEVER Last administered on 01/28 04:15; Start 01/27/17 at 10:45; Stop 01/28/17 at 10:44; Status DC Insulin Aspart (Novolog) 0-7 UNITS TIDWMEALS SQ ; Start 01/27/17 at 17:00; Stop 01/27/17 at 17:00; Status DC Dextrose 12.5 gm PRN Q15MIN PRN IV SEE COMMENTS Last administered on 02/01/17t 06:29; Start 01/27/17 at 15:30 Ampicillin Sodium/ Sulbactam Sodium (Unasyn) 3 gm Q6HRS IV ; Start 01/27/17 at 18:00; Stop 01/27/17 at 18:00; Status DC Bisacodyl (Dulcolax Supp) 10 mg PRN DAILY PRN RC CONSTIPATION; Start 01/27/17 at 15:30; Stop 01/27/17 at 15:52; Status DC Levothyroxine Sodium (Synthroid) 75 mcg DAILY PO ; Start 01/28/17 at 09:00; Stop 01/28/17 at 09:00; Status DC Magnesium Hydroxide (Milk Of Magnesia) 2,400 mg PRN DAILY PO ; Start 01/27/17 at 15:30; Stop 01/27/17 at 15:52; Status DC Metronidazole (Flagyl) 500 mg TID PO ; Start 01/27/17 at 21:00; Stop 01/27/17 at 21:00; Status DC Mirtazapine (Remeron) 15 mg QHS PO ; Start 01/27/17 at 21:00; Stop 01/27/17 at 21:00; Status DC Pantoprazole Sodium (Protonix) 40 mg BID PO ; Start 01/27/17 at 21:00; Stop 11/03 at 21:00; Status DC Senna/Docusate Sodium (Senna Plus) 2 tab Q12HR PRN PO CONSTIPATION; Start 01/27 at 15:30; Stop 01/27/17 at 15:52; Status DC Zolpidem Tartrate (Ambien) 5 mg QHS PO ; Start 01/27/17 at 21:00; Stop 01/27/17 at 21:00; Status DC Non-Formulary Medication 324 mg DAILY PO ; Start 01/28/17 at 09:00; Stop at 09:00; Status DC Non-Formulary Medication 10 unit QHS SQ ; Start 01/27/17 at 21:00; Stop at 21:00; Status DC Non-Formulary Medication 1 tab QHS PRN PO INSOMNIA; Start 01/27/17 at 15:30; Stop 01/27/17 at 15:52; Status DC Non-Formulary Medication 1 each DAILY PO ; Start 01/28/17 at 09:00; Stop at 09:00; Status DC Ondansetron HCl (Zofran Odt) 4 mg PRN Q6HRS PRN PO NAUSEA/VOMITING; Start 01/27 at 16:00 Non-Formulary Medication 1 tab Q4HRS PRN PO PAIN; Start 01/27/17 at 15:30; Stop 01/27/17 at 15:52; Status DC Non-Formulary Medication 20 mg BID PO ; Start 01/27/17 at 21:00; Stop 01/27/17 at 21:00; Status DC Metronidazole (Flagyl) 500 mg TID PO Last administered on 02/01/17 08:07; Start 01/27/17 at 16:30 Acetaminophen (Tylenol) 650 mg PRN Q4HRS PRN PO MILD PAIN / TEMP Last administered on 01/30/17 15:08; Start 01/27/17 at 15:45 Furosemide (Lasix) 20 mg DAILY PO Last administered on 02/01/17 08:07; Start 01/27/17 at 16:30 Gentamicin Sulfate (Garamycin) 1 sharonda PRN Q8HRS PRN TP . Last administered on 16:33; Start 01/27/17 at 21:00 Acetaminophen/ Hydrocodone Bitart (Lortab 5/325) 1 tab PRN Q4HRS PRN PO PAIN Last administered on 02/01/17 08:07; Start 01/27/17 at 16:00 Vancomycin HCl 250 mg [id number] PO Last administered on 01/29/17 20:28; Start at 17:00; Stop 01/30/17 at 08:05; Status DC Pantoprazole Sodium 40 mg 40 mg DAILYAC PO Last administered on 02/01/17 08:07 ; Start 01/28/17 at 07:30 Ceftriaxone Sodium/Sodium Chloride (Rocephin/Iv Sodium Chloride 0.9% 50ml) 50 ml @ 100 mls/hr Q24H IV Last administered on 01/29/17 17:21; Start 01/27/17 at 17:00; Stop 01/30/17 at 07:59; Status DC Morphine Sulfate 4 mg PRN Q2HR PRN IV PAIN Last administered on 01/31/17 14:40 ; Start 01/27/17 at 16:15 Oxycodone/ Acetaminophen 1 tab 1 tab PRN Q6HRS PRN PO MODERATE - SEVERE PAIN Last administered on 02/01/17 02:46; Start 01/27/17 at 16:15 Dextrose/Sodium Chloride (Iv D5% - 1/2 NS) 1,000 ml @ 100 mls/hr Q10H IV Last administered on 01/27/17 20:47; Start 01/28/17 at 02:15; Stop 01/28/17 at 19:30 ; Status DC Insulin Aspart (Novolog) 0-5 UNITS TIDWMEALS SQ Last administered on 01/31/17 16:55; Start 01/28/17 at 12:00 Dextrose 12.5 gm PRN Q15MIN PRN IV SEE COMMENTS; Start 01/28/17 at 11:00; Status UNV Lidocaine/Sodium Bicarbonate 20 ml 20 ml STK-MED ONCE IJ ; Start 01/28/17 at 13: 49; Stop 01/28/17 at 13:50; Status DC Heparin Sodium/ Sodium Chloride 500 ml @ As Directed STK-MED ONCE .ROUTE ; Start 01/28/17 at 13:49; Stop 01/28/17 at 13:50; Status DC Lidocaine/Sodium Bicarbonate (Buffered Lidocaine 1%) 3 ml 1X ONCE IJ Last administered on 01/28/17 14:34; Start 01/28/17 at 14:15; Stop 01/28/17 at 14:16 ; Status DC Heparin Sodium/ Sodium Chloride 40 unit 1X ONCE IV Last administered on 14:34; Start 01/28/17 at 14:15; Stop 01/28/17 at 14:16; Status DC Insulin Aspart (Novolog) 5 units 1X ONCE SQ Last administered on 01/28/17 17: 27; Start 01/28/17 at 17:00; Stop 01/28/17 at 17:01; Status DC Guaifenesin (Robitussin) 200 mg PRN Q4HRS PRN PO COUGH Last administered on 01:22; Start 01/29/17 at 11:30 Throat Lozenges (Cepacol Sore Throat Lozenge) 1 alejo PRN Q2HRS PRN PO SORE THROAT Last administered on 01/31/17 15:03; Start 01/29/17 at 11:30 Guaifenesin 5 ml 5 ml PRN Q4HRS PRN PO COUGH Last administered on 02/01/17 02: 49; Start 01/29/17 at 11:45 Sodium Chloride 1,000 ml @ 75 mls/hr [id number] IV Last administered on 08:07; Start 01/29/17 at 11:45 Cefepime HCl/ Sodium Chloride (Maxipime/Iv Sodium Chloride 0.9% 50ml) 50 ml @ 100 mls/hr Q8HRS IV Last administered on 01/31/17 05:05; Start 01/30/17 at 08: 00; Stop 01/31/17 at 10:17; Status DC Vancomycin HCl 125 mg BID PO Last administered on 01/31/17 21:24; Start at 09:00 Vancomycin HCl (Vanco Per Pharmacy) 1 each PRN DAILY PRN MC SEE COMMENTS Last administered on 01/30/17 14:26; Start 01/30/17 at 08:00 Levofloxacin (Levaquin) 750 mg 1X ONCE PO Last administered on 01/30/17 10:15 ; Start 01/30/17 at 08:00; Stop 01/30/17 at 08:09; Status DC Lactobacillus Acidophilus 1 tab 1 tab TIDWMEALS PO Last administered on 08:07; Start 01/30/17 at 08:00 Vancomycin HCl 1.75 gm/Sodium Chloride 500 ml @ 250 mls/hr 1X ONCE IV Last administered on 01/30/17 10:17; Start 01/30/17 at 08:30; Stop 01/30/17 at 10:29 ; Status DC Vancomycin HCl/ Sodium Chloride (Iv Sodium Chloride 0.9% 250ml) 250 ml @ 250 mls/hr Q24H IV Last administered on 01/31/17 11:00; Start 01/31/17 at 10:00 Vancomycin HCl 1 each 1X ONCE MC ; Start 02/01/17 at 09:30; Stop 02/01/17 at 09 :31 Levofloxacin (Levaquin) 500 mg DAILY06 PO Last administered on 02/01/17 06:02 ; Start 01/31/17 at 11:00 Insulin Aspart (Novolog) 5 units TIDAC SQ Last administered on 01/31/17 17:22 ; Start 01/31/17 at 17:22 Dextrose 12.5 gm PRN Q15MIN PRN IV SEE COMMENTS; Start 01/31/17 at 17:15 Insulin Detemir (Levemir) 14 units QHS SQ Last administered on 01/31/17 21:29 ; Start 01/31/17 at 21:00 Active Scripts Active Reported Vancomycin HCl 125 Mg/2.5 Ml Syringe 250 Mg PO QID Novolog (Insulin Aspart) 100 Unit/1 Ml Cartridge 6 Unit SQ TIDBFRMEAL Levemir (Insulin Detemir) 100 Unit/1 Ml Vial 14 Unit SQ HS Furosemide 20 Mg Tablet 20 Mg PO DAILY Hydrocodone-Apap 5-300 (Hydrocodone Bit/Acetaminophen) 1 Each Tablet 1 Tab PO PRN Q4HRS PRN Gentamicin Sulfate 0.1% Oint (Gentamicin Sulfate) 15 Gm Oint...g. 1 Sharonda TP PRN Q8HRS PRN DIRECTED BY PHYSICIAN Acetaminophen 325 Mg Tablet 650 Mg PO PRN Q4HRS PRN Milk Of Magnesia (Magnesium Hydroxide) 400 Mg/5 Ml Oral.susp 30 Ml PO PRN DAILY Ondansetron Hcl 4 Mg Tablet 1 Tab PO PRN Q12HR PRN Pantoprazole Sodium 40 Mg Tablet. 1 Tab PO DAILY Flagyl (Metronidazole) 500 Mg Tablet 500 Mg PO TID Vitals/I & O Vital Sign - Last 24 Hours 01/31/17 01/31/17 01/31/17 01/31/17 10:52 14:40 15:03 15:10 Temp 98.9 99.1 98.9 99.1 Pulse 55 57 Resp 16 16 B/P 145/49 125/56 Pulse Ox 96 93 93 O2 Delivery Room Air Room Air Room Air Room Air 01/31/17 01/31/17 01/31/17 01/31/17 17:48 19:00 20:00 21:23 Temp 99.1 99.1 Pulse 80 Resp 15 18 16 B/P 119/64 Pulse Ox 94 94 O2 Delivery Room Air Room Air Room Air Room Air 01/31/17 01/31/17 02/01/17 02/01/17 22:25 23:00 02:46 03:00 Temp 99.1 98.2 99.1 98.2 Pulse 85 18 Resp 18 B/P 134/70 117/57 Pulse Ox 95 95 95 93 O2 Delivery Room Air Room Air Room Air 02/01/17 02/01/17 02/01/17 02/01/17 03:55 06:02 07:00 07:02 Temp 97.7 97.7 Pulse 52 Resp B/P 133/62 Pulse Ox 93 93 98 O2 Delivery Room Air Room Air Room Air Room Air Intake and Output 01/31/17 01/31/17 02/01/17 15:00 23:00 07:00 Intake Total 750 ml Output Total 1 ml 201 ml Balance -1 ml 549 ml ADELSO JEFF III DO Feb 01, 2017 08:23
--- NOTE | 2017-02-01 09:41 | PDOC ---
Infectious Disease Note Subjective Subjective Cough some better this morning Had diarrhea again Had a low sugar this am and a metal taste in her mouth ROS ROS GEN: Denies fevers, chills, sweats HEENT: Denies blurred vision, sore throat CV: Denies chest pain RESP: Denies shortness of air GI: Denies n/v NEURO: Denies confusion, dizziness MSK: Denies weakness, joint pain/swelling Vital Sign Vital Signs Vital Signs Date Time Temp Pulse Resp B/P Pulse Ox O2 Delivery O2 Flow Rate FiO2 02/01/17 07:02 Room Air 02/01/17 07:00 97.7 52 18 133/62 98 97.7 Physical Exam PHYSICAL EXAM GENERAL: NAD, Alert, looks well HEENT: PERRL, OC/OP - clear NECK: Supple, no JVD, no LN LUNGS: Clear HEART: S1S2, no gallop, no murmur ABD: Soft, NT, no organomegaly, no rebound EXT: No edema, no cyanosis. Legs dressed [employer]: Alert, oriented x 3, no focal neurologic deficit SKIN: No rash IV: PICC LUE clean Labs Lab Laboratory Tests Test 01/31/17 11:06 01/31/17 16:19 01/31/17 20:58 02/01/17 02:30 Glucose (Fingerstick) 343mg/dL (70-99) 308mg/dL (70-99) 200mg/dL (70-99) 115mg/dL (70-99) Test 02/01/17 06:30 02/01/17 07:33 White Blood Count 9.7x10^3/uL (4.0-11.0) Red Blood Count 3.47x10^6/uL (3.50-5.40) Hemoglobin 10.2g/dL (12.0-15.5) Hematocrit 31.9% (36.0-47.0) Mean Corpuscular Volume 92fL (79-100) Mean Corpuscular Hemoglobin 29pg (25-35) Mean Corpuscular Hemoglobin Concent 32g/dL (31-37) Red Cell Distribution Width 14.7% (11.5-14.5) Platelet Count 209x10^3/uL (140-400) Neutrophils (%) (Auto) 51% (31-73) Lymphocytes (%) (Auto) 32% (24-48) Monocytes (%) (Auto) 12% (0-9) Eosinophils (%) (Auto) 4% (0-3) Basophils (%) (Auto) 1% (0-3) Neutrophils # (Auto) 4.9x10^3uL (1.8-7.7) Lymphocytes # (Auto) 3.1x10^3/uL (1.0-4.8) Monocytes # (Auto) 1.1x10^3/uL (0.0-1.1) Eosinophils # (Auto) 0.4x10^3/uL (0.0-0.7) Basophils # (Auto) 0.1x10^3/uL (0.0-0.2) Sodium Level 138mmol/L (136-145) Potassium Level 3.9mmol/L (3.5-5.1) Chloride Level 112mmol/L (98-107) Carbon Dioxide Level 20mmol/L (21-32) Anion Gap 6 (6-14) Blood Urea Nitrogen 11mg/dL (7-20) Creatinine 1.3mg/dL (0.6-1.0) Estimated GFR (Cockcroft-Gault) 49.9 Glucose Level 29mg/dL (70-99) Calcium Level 8.2mg/dL (8.5-10.1) Glucose (Fingerstick) 88mg/dL (70-99) Micro Escherichia coli Greater than 100,000 colony forming units per mL ANTIMICROBIAL SUSCEPTIBILITY Final Comment S = Susceptible; I = Intermediate; R = Resistant P = Positive; N = Negative MICS are expressed in micrograms per mL Antibiotic RSLT#1 RSLT#2 RSLT#3 RSLT#4 Amoxicillin/Clavulanic Acid S Ampicillin R Cefepime S Ceftriaxone S Cefuroxime I Cephalothin I Ciprofloxacin S Ertapenem S Gentamicin R Imipenem S Levofloxacin S Nitrofurantoin S Piperacillin R Tetracycline S Tobramycin I Trimethoprim/Sulfa S Objective Assessment Fever - improved from 01/30. Clinically looks better Cough and congestion - CXR and Flu - neg Hypoglycemia this am Ecoli UTI with symptoms but ? contaminated UA.Sens to Rocephin/Quinolones Leukocytosis - better Sulfa allergy ? reaction Heel and buttock wounds not observed as she is planning to go to [facility] did not to be disturbed Plan Plan of Care Cont Vanc/Levoflox for atypical Cont Po vanc but BID D/c Flagyl with metalic taste Blood cults times 2 neg so far Probiotics F/u labs and cults CODY WRIGHT MD Feb 01, 2017 09:41
[2017-02-01] MEDS: VANCOMYCIN 125 MG/2.5 ML ORAL SOLUTION. PO SCH ×2 (10:00→22:05)
[2017-02-01] MEDS: VANCOMYCIN 1 GM in IV NORMAL SALINE 250ML 250 ML IV SCH ×2 (10:00→12:03)
[2017-02-01 10:44] VITALS: BP 136/63
[2017-02-01] MEDS: VANCOMYCIN PER PHARMACY MC PRN (10:57)
--- NOTE | 2017-02-01 11:28 | PDOC ---
Renal-Progress Notes Subjective Notes Notes NONE History of Present Illness Hx of present illness NO CHANGE Vitals Vitals Vital Signs Date Time Temp Pulse Resp B/P Pulse Ox O2 Delivery O2 Flow Rate FiO2 02/01/17 10:44 98.6 50 16 136/63 99 Room Air 98.6 Weight Weight [ ] I.O. Intake and Output Intake and Output 02/01/17 07:00 Intake Total 750 ml Output Total 202 ml Balance 548 ml Intake Oral 750 ml Output Urine Total 200 ml Stool Total 1 ml Urine/Stool Mix 1 ml # Voids 4 # Bowel Movements 2 Labs Labs Laboratory Tests Test 01/31/17 16:19 01/31/17 20:58 02/01/17 02:30 02/01/17 06:30 Glucose (Fingerstick) 308mg/dL (70-99) 200mg/dL (70-99) 115mg/dL (70-99) 107mg/dL (70-99) White Blood Count 9.7x10^3/uL (4.0-11.0) Red Blood Count 3.47x10^6/uL (3.50-5.40) Hemoglobin 10.2g/dL (12.0-15.5) Hematocrit 31.9% (36.0-47.0) Mean Corpuscular Volume 92fL (79-100) Mean Corpuscular Hemoglobin 29pg (25-35) Mean Corpuscular Hemoglobin Concent 32g/dL (31-37) Red Cell Distribution Width 14.7% (11.5-14.5) Platelet Count 209x10^3/uL (140-400) Neutrophils (%) (Auto) 51% (31-73) Lymphocytes (%) (Auto) 32% (24-48) Monocytes (%) (Auto) 12% (0-9) Eosinophils (%) (Auto) 4% (0-3) Basophils (%) (Auto) 1% (0-3) Neutrophils # (Auto) 4.9x10^3uL (1.8-7.7) Lymphocytes # (Auto) 3.1x10^3/uL (1.0-4.8) Monocytes # (Auto) 1.1x10^3/uL (0.0-1.1) Eosinophils # (Auto) 0.4x10^3/uL (0.0-0.7) Basophils # (Auto) 0.1x10^3/uL (0.0-0.2) Sodium Level 138mmol/L (136-145) Potassium Level 3.9mmol/L (3.5-5.1) Chloride Level 112mmol/L (98-107) Carbon Dioxide Level 20mmol/L (21-32) Anion Gap 6 (6-14) Blood Urea Nitrogen 11mg/dL (7-20) Creatinine 1.3mg/dL (0.6-1.0) Estimated GFR (Cockcroft-Gault) 49.9 Glucose Level 29mg/dL (70-99) Calcium Level 8.2mg/dL (8.5-10.1) Test 02/01/17 07:33 02/01/17 09:53 02/01/17 10:00 02/01/17 11:07 Glucose (Fingerstick) 88mg/dL (70-99) 68mg/dL (70-99) 127mg/dL (70-99) Vancomycin Level Trough 12.5mcg/mL (10.0-20.0) Vancomycin Last Dose Date 01/31/17 Vancomycin Last Dose Time 1000 Micro Micro Microbiology 01/30/17 Blood Culture - Preliminary, Resulted NO GROWTH AFTER 2 DAYS 01/27/17 Urine Culture - Final, Complete 01/27/17 Urine Culture Result 1 (URSULA) - Final, Complete 01/27/17 Antimicrobic Susceptibility - Final, Complete Review of Systems Constitutional: yes: alert, oriented Ears/Nose/Throat: Yes: no symptom reported Eyes: Yes: no symptom reported Pulmonary: Yes no symptom reported Cardiovascular: Yes no symptom reported Musculoskeletal: Yes: no symptom reported Psychiatric/Neurological: Yes: no symptom reported Physical Exam General Appearance: no apparent distress Respiratory: bilateral CTA Heart: S1S2 Abdomen: soft, bowel sounds present Extremities: pulses present Neurology: alert Musculoskeletal: low back pain, Osteoarthritis, Swelling Assessment Assessment IMP GNR UTI MAYNOR-RESOLVED CKD STAGE 3 WITH CR OF 1.3 HYPERKALEMIA-STABLE HYPOGLYCEMIA-RESOLVED PLAN ANTIBIOTICS IVF'S DANE MATIAS MD Feb 01, 2017 11:28
[2017-02-01 15:02] VITALS: BP 149/65
[2017-02-01] MEDS: BENZOCAINE/MENTHOL LOZENGE. PO PRN (16:34)
[2017-02-01 19:10] VITALS: BP 148/57
[2017-02-01] MEDS: INSULIN DETEMIR 300 UNITS/3 ML INSULN.PEN. SQ SCH (21:00)
[2017-02-01 23:30] VITALS: BP 127/59
[2017-02-02] MEDS: MORPHINE SULFATE 4 MG/ML DISP.SYRIN. IV PRN ×5 (00:28→15:30)
[2017-02-02 03:05] VITALS: BP 124/53
[2017-02-02] MEDS: OXYCODONE/APAP 5/325 TABLET. PO PRN ×3 (04:45→21:06)
[2017-02-02] MEDS: VANCOMYCIN 1 GM in IV NORMAL SALINE 250ML 250 ML IV SCH (05:23)
[2017-02-02 05:27] LABS: BASO # 0.1 x10^3/uL (0.0-0.2); BASO % 1 % (0-3); EOS % 4 % (0-3); HEMATOCRIT 27.4 % (36.0-47.0); LYMPH # 2.6 x10^3/uL (1.0-4.8); LYMPH % 38 % (24-48); MEAN CORPUSCULAR HEMOGLOBIN 30 pg (25-35); MEAN CORPUSCULAR HGB CONC 33 g/dL (31-37); MEAN CORPUSCULAR VOLUME 90 fL (79-100); MONO % 8 % (0-9); NEUT % 49 % (31-73); PLATELET COUNT 193 x10^3/uL (140-400); RED BLOOD COUNT 3.05 x10^6/uL (3.50-5.40); RED CELL DISTRIBUTION WIDTH 14.7 % (11.5-14.5); WHITE BLOOD COUNT 6.9 x10^3/uL (4.0-11.0)
[2017-02-02 05:56] LABS: CALCIUM 7.7 mg/dL (8.5-10.1); CREATININE 1.2 mg/dL (0.6-1.0); GFR 54.7; POTASSIUM 4.9 mmol/L (3.5-5.1)
[2017-02-02] MEDS: LEVOFLOXACIN 500 MG TABLET PO SCH (06:37)
[2017-02-02 07:00] VITALS: BP 152/57
[2017-02-02] MEDS: HYDROCODONE/APAP 5/325MG TABLET. PO PRN ×2 (08:53→18:20)
[2017-02-02] MEDS: LACTOBACILLUS ACIDOPH & BULGAR 1 TABLET. PO SCH ×3 (08:53→18:20)
[2017-02-02] MEDS: FUROSEMIDE 20 MG TABLET PO SCH (08:53)
[2017-02-02] MEDS: PANTOPRAZOLE 40 MG TABLET. PO SCH (08:53)
[2017-02-02] MEDS: VANCOMYCIN 125 MG/2.5 ML ORAL SOLUTION. PO SCH ×2 (08:54→21:05)
[2017-02-02] MEDS: INSULIN ASPART 300 UNITS/3 ML INSULN.PEN SQ SCH ×6 (09:02→17:00)
--- NOTE | 2017-02-02 09:17 | PDOC ---
PROGRESS NOTES Chief Complaint Chief Complaint Altered mental status History of Present Illness History of Present Illness No acute events overnight. Patient is eating breakfast during evaluation. She reports she is feeling better. Her cough has now become productive. Vitals Vitals Vital Signs Date Time Temp Pulse Resp B/P Pulse Ox O2 Delivery O2 Flow Rate FiO2 02/02/17 08:53 Room Air 02/02/17 07:00 98.1 49 14 152/57 97 98.1 Physical Exam General: Alert, Cooperative, No acute distress Heart: Regular rate, No murmurs Lungs: Clear, Other (no wheezing, productive cough ) Abdomen: Soft, No tenderness Extremities: No cyanosis, No edema Skin: No rashes, Other (wound to L heel, R lower leg dressed appropriately ) Labs LABS Laboratory Tests Test 02/01/17 09:53 02/01/17 10:00 02/01/17 11:07 02/01/17 16:15 Glucose (Fingerstick) 68mg/dL (70-99) 127mg/dL (70-99) 140mg/dL (70-99) Vancomycin Level Trough 12.5mcg/mL (10.0-20.0) Vancomycin Last Dose Date 01/31/17 Vancomycin Last Dose Time 1000 Test 02/01/17 20:57 02/02/17 04:51 02/02/17 04:55 02/02/17 07:18 Glucose (Fingerstick) 204mg/dL (70-99) 307mg/dL (70-99) 303mg/dL (70-99) White Blood Count 6.9x10^3/uL (4.0-11.0) Red Blood Count 3.05x10^6/uL (3.50-5.40) Hemoglobin 9.0g/dL (12.0-15.5) Hematocrit 27.4% (36.0-47.0) Mean Corpuscular Volume 90fL (79-100) Mean Corpuscular Hemoglobin 30pg (25-35) Mean Corpuscular Hemoglobin Concent 33g/dL (31-37) Red Cell Distribution Width 14.7% (11.5-14.5) Platelet Count 193x10^3/uL (140-400) Neutrophils (%) (Auto) 49% (31-73) Lymphocytes (%) (Auto) 38% (24-48) Monocytes (%) (Auto) 8% (0-9) Eosinophils (%) (Auto) 4% (0-3) Basophils (%) (Auto) 1% (0-3) Neutrophils # (Auto) 3.4x10^3uL (1.8-7.7) Lymphocytes # (Auto) 2.6x10^3/uL (1.0-4.8) Monocytes # (Auto) 0.5x10^3/uL (0.0-1.1) Eosinophils # (Auto) 0.3x10^3/uL (0.0-0.7) Basophils # (Auto) 0.1x10^3/uL (0.0-0.2) Sodium Level 140mmol/L (136-145) Potassium Level 4.9mmol/L (3.5-5.1) Chloride Level 112mmol/L (98-107) Carbon Dioxide Level 21mmol/L (21-32) Anion Gap 7 (6-14) Blood Urea Nitrogen 9mg/dL (7-20) Creatinine 1.2mg/dL (0.6-1.0) Estimated GFR (Cockcroft-Gault) 54.7 Glucose Level 327mg/dL (70-99) Calcium Level 7.7mg/dL (8.5-10.1) Review of Systems Review of Systems Denies chest pain and shortness of breath. Denies fever and chills. Does have productive cough. Assessment and Plan Assessmemt and Plan Problems Medical Problems: (1) Altered mental state Status: Acute (2) Hypoglycemia Status: Acute (3) UTI (urinary tract infection) Status: Acute ASSESSMENT: Hypoglycemia Altered mental status Metabolic encephalopathy Dm2, poor control UTI C. diff colitis Severe malnutrition Anemia of CKD Leukocytosis without other SIRS criteria - Resolved Cognitive decline vs early dementia PLAN: Continue Novolog to 3u TID, decreased Levemir to 10u QHS and sliding scale Continue to monitor blood glucose Patient will return to [facility] upon discharge Continue Robitussin DM Continue pain control Renal and ID are following, their recommendations are appreciated Continue antibiotics per ID Continue wound care PT/OT to eval and treat Trending daily labs Problems: Comment Review of Relevant I have reviewed the following items yariel (where applicable) has been applied. Labs Laboratory Tests Test 01/31/17 11:06 01/31/17 16:19 01/31/17 20:58 02/01/17 02:30 Glucose (Fingerstick) 343mg/dL (70-99) 308mg/dL (70-99) 200mg/dL (70-99) 115mg/dL (70-99) Test 02/01/17 06:30 02/01/17 07:33 02/01/17 09:53 02/01/17 10:00 White Blood Count 9.7x10^3/uL (4.0-11.0) Red Blood Count 3.47x10^6/uL (3.50-5.40) Hemoglobin 10.2g/dL (12.0-15.5) Hematocrit 31.9% (36.0-47.0) Mean Corpuscular Volume 92fL (79-100) Mean Corpuscular Hemoglobin 29pg (25-35) Mean Corpuscular Hemoglobin Concent 32g/dL (31-37) Red Cell Distribution Width 14.7% (11.5-14.5) Platelet Count 209x10^3/uL (140-400) Neutrophils (%) (Auto) 51% (31-73) Lymphocytes (%) (Auto) 32% (24-48) Monocytes (%) (Auto) 12% (0-9) Eosinophils (%) (Auto) 4% (0-3) Basophils (%) (Auto) 1% (0-3) Neutrophils # (Auto) 4.9x10^3uL (1.8-7.7) Lymphocytes # (Auto) 3.1x10^3/uL (1.0-4.8) Monocytes # (Auto) 1.1x10^3/uL (0.0-1.1) Eosinophils # (Auto) 0.4x10^3/uL (0.0-0.7) Basophils # (Auto) 0.1x10^3/uL (0.0-0.2) Sodium Level 138mmol/L (136-145) Potassium Level 3.9mmol/L (3.5-5.1) Chloride Level 112mmol/L (98-107) Carbon Dioxide Level 20mmol/L (21-32) Anion Gap 6 (6-14) Blood Urea Nitrogen 11mg/dL (7-20) Creatinine 1.3mg/dL (0.6-1.0) Estimated GFR (Cockcroft-Gault) 49.9 Glucose Level 29mg/dL (70-99) Glucose (Fingerstick) 107mg/dL (70-99) 88mg/dL (70-99) 68mg/dL (70-99) Calcium Level 8.2mg/dL (8.5-10.1) Vancomycin Level Trough 12.5mcg/mL (10.0-20.0) Vancomycin Last Dose Date 01/31/17 Vancomycin Last Dose Time 1000 Test 02/01/17 11:07 02/01/17 16:15 02/01/17 20:57 02/02/17 04:51 Glucose (Fingerstick) 127mg/dL (70-99) 140mg/dL (70-99) 204mg/dL (70-99) 307mg/dL (70-99) Test 02/02/17 04:55 02/02/17 07:18 White Blood Count 6.9x10^3/uL (4.0-11.0) Red Blood Count 3.05x10^6/uL (3.50-5.40) Hemoglobin 9.0g/dL (12.0-15.5) Hematocrit 27.4% (36.0-47.0) Mean Corpuscular Volume 90fL (79-100) Mean Corpuscular Hemoglobin 30pg (25-35) Mean Corpuscular Hemoglobin Concent 33g/dL (31-37) Red Cell Distribution Width 14.7% (11.5-14.5) Platelet Count 193x10^3/uL (140-400) Neutrophils (%) (Auto) 49% (31-73) Lymphocytes (%) (Auto) 38% (24-48) Monocytes (%) (Auto) 8% (0-9) Eosinophils (%) (Auto) 4% (0-3) Basophils (%) (Auto) 1% (0-3) Neutrophils # (Auto) 3.4x10^3uL (1.8-7.7) Lymphocytes # (Auto) 2.6x10^3/uL (1.0-4.8) Monocytes # (Auto) 0.5x10^3/uL (0.0-1.1) Eosinophils # (Auto) 0.3x10^3/uL (0.0-0.7) Basophils # (Auto) 0.1x10^3/uL (0.0-0.2) Sodium Level 140mmol/L (136-145) Potassium Level 4.9mmol/L (3.5-5.1) Chloride Level 112mmol/L (98-107) Carbon Dioxide Level 21mmol/L (21-32) Anion Gap 7 (6-14) Blood Urea Nitrogen 9mg/dL (7-20) Creatinine 1.2mg/dL (0.6-1.0) Estimated GFR (Cockcroft-Gault) 54.7 Glucose Level 327mg/dL (70-99) Calcium Level 7.7mg/dL (8.5-10.1) Glucose (Fingerstick) 303mg/dL (70-99) Laboratory Tests Test 02/01/17 09:53 02/01/17 10:00 02/01/17 11:07 02/01/17 16:15 Glucose (Fingerstick) 68mg/dL (70-99) 127mg/dL (70-99) 140mg/dL (70-99) Vancomycin Level Trough 12.5mcg/mL (10.0-20.0) Vancomycin Last Dose Date 01/31/17 Vancomycin Last Dose Time 1000 Test 02/01/17 20:57 02/02/17 04:51 02/02/17 04:55 02/02/17 07:18 Glucose (Fingerstick) 204mg/dL (70-99) 307mg/dL (70-99) 303mg/dL (70-99) White Blood Count 6.9x10^3/uL (4.0-11.0) Red Blood Count 3.05x10^6/uL (3.50-5.40) Hemoglobin 9.0g/dL (12.0-15.5) Hematocrit 27.4% (36.0-47.0) Mean Corpuscular Volume 90fL (79-100) Mean Corpuscular Hemoglobin 30pg (25-35) Mean Corpuscular Hemoglobin Concent 33g/dL (31-37) Red Cell Distribution Width 14.7% (11.5-14.5) Platelet Count 193x10^3/uL (140-400) Neutrophils (%) (Auto) 49% (31-73) Lymphocytes (%) (Auto) 38% (24-48) Monocytes (%) (Auto) 8% (0-9) Eosinophils (%) (Auto) 4% (0-3) Basophils (%) (Auto) 1% (0-3) Neutrophils # (Auto) 3.4x10^3uL (1.8-7.7) Lymphocytes # (Auto) 2.6x10^3/uL (1.0-4.8) Monocytes # (Auto) 0.5x10^3/uL (0.0-1.1) Eosinophils # (Auto) 0.3x10^3/uL (0.0-0.7) Basophils # (Auto) 0.1x10^3/uL (0.0-0.2) Sodium Level 140mmol/L (136-145) Potassium Level 4.9mmol/L (3.5-5.1) Chloride Level 112mmol/L (98-107) Carbon Dioxide Level 21mmol/L (21-32) Anion Gap 7 (6-14) Blood Urea Nitrogen 9mg/dL (7-20) Creatinine 1.2mg/dL (0.6-1.0) Estimated GFR (Cockcroft-Gault) 54.7 Glucose Level 327mg/dL (70-99) Calcium Level 7.7mg/dL (8.5-10.1) Microbiology 01/30/17 Blood Culture - Preliminary, Resulted NO GROWTH AFTER 2 DAYS 01/27/17 Urine Culture - Final, Complete 01/27/17 Urine Culture Result 1 (URSULA) - Final, Complete 01/27/17 Antimicrobic Susceptibility - Final, Complete Medications Current Medications Dextrose 1,000 ml @ 75 mls/hr 1X ONCE IV ; Start 01/27/17 at 10:00; Stop 01/27 at 23:19; Status Cancel Dextrose 25 gm 25 gm 1X ONCE IV Last administered on 01/27/17t 10:06; Start at 10:00; Stop 01/27/17 at 10:01; Status DC Dextrose/Sodium Chloride 500 ml @ 0 mls/hr 1X ONCE IV ; Start 01/27/17 at 10:00 ; Stop 01/27/17 at 10:03; Status DC Dextrose/Sodium Chloride (Iv D5% - 1/2 NS) 1,000 ml @ 125 mls/hr 1X ONCE IV Last administered on 01/27/17 10:09; Start 01/27/17 at 10:15; Stop 01/27/17 at 18:14; Status DC Ondansetron HCl (Zofran) 4 mg PRN Q8HRS PRN IV NAUSEA/VOMITING; Start 01/27/17 at 10:45; Stop 01/28/17 at 10:44; Status DC Acetaminophen (Tylenol) 650 mg PRN Q4HRS PRN PO FEVER Last administered on 01/28 04:15; Start 01/27/17 at 10:45; Stop 01/28/17 at 10:44; Status DC Insulin Aspart (Novolog) 0-7 UNITS TIDWMEALS SQ ; Start 01/27/17 at 17:00; Stop 01/27/17 at 17:00; Status DC Dextrose 12.5 gm PRN Q15MIN PRN IV SEE COMMENTS Last administered on 02/01/17 06:29; Start 01/27/17 at 15:30 Ampicillin Sodium/ Sulbactam Sodium (Unasyn) 3 gm Q6HRS IV ; Start 01/27/17 at 18:00; Stop 01/27/17 at 18:00; Status DC Bisacodyl (Dulcolax Supp) 10 mg PRN DAILY PRN RC CONSTIPATION; Start 01/27/17 at 15:30; Stop 01/27/17 at 15:52; Status DC Levothyroxine Sodium (Synthroid) 75 mcg DAILY PO ; Start 01/28/17 at 09:00; Stop 01/28/17 at 09:00; Status DC Magnesium Hydroxide (Milk Of Magnesia) 2,400 mg PRN DAILY PO ; Start 01/27/17 at 15:30; Stop 01/27/17 at 15:52; Status DC Metronidazole (Flagyl) 500 mg TID PO ; Start 01/27/17 at 21:00; Stop 01/27/17 at 21:00; Status DC Mirtazapine (Remeron) 15 mg QHS PO ; Start 01/27/17 at 21:00; Stop 01/27/17 at 21:00; Status DC Pantoprazole Sodium (Protonix) 40 mg BID PO ; Start 01/27/17 at 21:00; Stop 11/03 at 21:00; Status DC Senna/Docusate Sodium (Senna Plus) 2 tab Q12HR PRN PO CONSTIPATION; Start 01/27 at 15:30; Stop 01/27/17 at 15:52; Status DC Zolpidem Tartrate (Ambien) 5 mg QHS PO ; Start 01/27/17 at 21:00; Stop 01/27/17 at 21:00; Status DC Non-Formulary Medication 324 mg DAILY PO ; Start 01/28/17 at 09:00; Stop at 09:00; Status DC Non-Formulary Medication 10 unit QHS SQ ; Start 01/27/17 at 21:00; Stop at 21:00; Status DC Non-Formulary Medication 1 tab QHS PRN PO INSOMNIA; Start 01/27/17 at 15:30; Stop 01/27/17 at 15:52; Status DC Non-Formulary Medication 1 each DAILY PO ; Start 01/28/17 at 09:00; Stop at 09:00; Status DC Ondansetron HCl (Zofran Odt) 4 mg PRN Q6HRS PRN PO NAUSEA/VOMITING; Start 01/27 at 16:00 Non-Formulary Medication 1 tab Q4HRS PRN PO PAIN; Start 01/27/17 at 15:30; Stop 01/27/17 at 15:52; Status DC Non-Formulary Medication 20 mg BID PO ; Start 01/27/17 at 21:00; Stop 01/27/17 at 21:00; Status DC Metronidazole (Flagyl) 500 mg TID PO Last administered on 02/01/17 08:07; Start 01/27/17 at 16:30; Stop 02/01/17 at 09:48; Status DC Acetaminophen (Tylenol) 650 mg PRN Q4HRS PRN PO MILD PAIN / TEMP Last administered on 01/30/17 15:08; Start 01/27/17 at 15:45 Furosemide (Lasix) 20 mg DAILY PO Last administered on 02/02/17 08:53; Start 01/27/17 at 16:30 Gentamicin Sulfate (Garamycin) 1 sharonda PRN Q8HRS PRN TP . Last administered on 16:33; Start 01/27/17 at 21:00 Acetaminophen/ Hydrocodone Bitart (Lortab 5/325) 1 tab PRN Q4HRS PRN PO PAIN Last administered on 02/02/17 08:53; Start 01/27/17 at 16:00 Vancomycin HCl 250 mg [id number] PO Last administered on 01/29/17 20:28; Start at 17:00; Stop 01/30/17 at 08:05; Status DC Pantoprazole Sodium 40 mg 40 mg DAILYAC PO Last administered on 02/02/17 08:53 ; Start 01/28/17 at 07:30 Ceftriaxone Sodium/Sodium Chloride (Rocephin/Iv Sodium Chloride 0.9% 50ml) 50 ml @ 100 mls/hr Q24H IV Last administered on 01/29/17 17:21; Start 01/27/17 at 17:00; Stop 01/30/17 at 07:59; Status DC Morphine Sulfate 4 mg PRN Q2HR PRN IV PAIN Last administered on 02/02/17 06:38 ; Start 01/27/17 at 16:15 Oxycodone/ Acetaminophen 1 tab 1 tab PRN Q6HRS PRN PO MODERATE - SEVERE PAIN Last administered on 02/02/17 04:45; Start 01/27/17 at 16:15 Dextrose/Sodium Chloride (Iv D5% - 1/2 NS) 1,000 ml @ 100 mls/hr Q10H IV Last administered on 01/27/17 20:47; Start 01/28/17 at 02:15; Stop 01/28/17 at 19:30 ; Status DC Insulin Aspart (Novolog) 0-5 UNITS TIDWMEALS SQ Last administered on 02/02/17 09:02; Start 01/28/17 at 12:00 Dextrose 12.5 gm PRN Q15MIN PRN IV SEE COMMENTS; Start 01/28/17 at 11:00; Status UNV Lidocaine/Sodium Bicarbonate 20 ml 20 ml STK-MED ONCE IJ ; Start 01/28/17 at 13: 49; Stop 01/28/17 at 13:50; Status DC Heparin Sodium/ Sodium Chloride 500 ml @ As Directed STK-MED ONCE .ROUTE ; Start 01/28/17 at 13:49; Stop 01/28/17 at 13:50; Status DC Lidocaine/Sodium Bicarbonate (Buffered Lidocaine 1%) 3 ml 1X ONCE IJ Last administered on 01/28/17 14:34; Start 01/28/17 at 14:15; Stop 01/28/17 at 14:16 ; Status DC Heparin Sodium/ Sodium Chloride 40 unit 1X ONCE IV Last administered on 14:34; Start 01/28/17 at 14:15; Stop 01/28/17 at 14:16; Status DC Insulin Aspart (Novolog) 5 units 1X ONCE SQ Last administered on 01/28/17 17: 27; Start 01/28/17 at 17:00; Stop 01/28/17 at 17:01; Status DC Guaifenesin (Robitussin) 200 mg PRN Q4HRS PRN PO COUGH Last administered on 01:22; Start 01/29/17 at 11:30 Throat Lozenges (Cepacol Sore Throat Lozenge) 1 alejo PRN Q2HRS PRN PO SORE THROAT Last administered on 02/01/17 16:34; Start 01/29/17 at 11:30 Guaifenesin 5 ml 5 ml PRN Q4HRS PRN PO COUGH Last administered on 02/01/17 22: 05; Start 01/29/17 at 11:45 Sodium Chloride 1,000 ml @ 75 mls/hr [id number] IV Last administered on 22:45; Start 01/29/17 at 11:45 Cefepime HCl/ Sodium Chloride (Maxipime/Iv Sodium Chloride 0.9% 50ml) 50 ml @ 100 mls/hr Q8HRS IV Last administered on 01/31/17 05:05; Start 01/30/17 at 08: 00; Stop 01/31/17 at 10:17; Status DC Vancomycin HCl 125 mg BID PO Last administered on 02/02/17 08:54; Start at 09:00 Vancomycin HCl (Vanco Per Pharmacy) 1 each PRN DAILY PRN MC SEE COMMENTS Last administered on 02/01/17 10:57; Start 01/30/17 at 08:00 Levofloxacin (Levaquin) 750 mg 1X ONCE PO Last administered on 01/30/17 10:15 ; Start 01/30/17 at 08:00; Stop 01/30/17 at 08:09; Status DC Lactobacillus Acidophilus 1 tab 1 tab TIDWMEALS PO Last administered on 08:53; Start 01/30/17 at 08:00 Vancomycin HCl 1.75 gm/Sodium Chloride 500 ml @ 250 mls/hr 1X ONCE IV Last administered on 01/30/17 10:17; Start 01/30/17 at 08:30; Stop 01/30/17 at 10:29 ; Status DC Vancomycin HCl/ Sodium Chloride (Iv Sodium Chloride 0.9% 250ml) 250 ml @ 250 mls/hr Q24H IV Last administered on 01/31/17 11:00; Start 01/31/17 at 10:00; Stop 02/01/17 at 10:52; Status DC Vancomycin HCl 1 each 1X ONCE MC Last administered on 02/01/17 09:30; Start 02/01/17 at 09:30; Stop 02/01/17 at 09:31; Status DC Levofloxacin (Levaquin) 500 mg DAILY06 PO Last administered on 02/02/17 06:37 ; Start 01/31/17 at 11:00 Insulin Aspart (Novolog) 5 units TIDAC SQ Last administered on 01/31/17 17:22 ; Start 01/31/17 at 17:22; Stop 02/01/17 at 11:03; Status DC Dextrose 12.5 gm PRN Q15MIN PRN IV SEE COMMENTS; Start 01/31/17 at 17:15 Insulin Detemir 14 units 14 units QHS SQ Last administered on 01/31/17 21:29; Start 01/31/17 at 21:00; Stop 02/01/17 at 11:03; Status DC Vancomycin HCl/ Sodium Chloride (Iv Sodium Chloride 0.9% 250ml) 250 ml @ 250 mls/hr Q18H IV Last administered on 02/02/17 05:23; Start 02/01/17 at 11:00 Insulin Aspart (Novolog) 3 units TIDAC SQ Last administered on 02/02/17 09:03 ; Start 02/01/17 at 11:30 Insulin Detemir (Levemir) 10 units QHS SQ ; Start 02/01/17 at 21:00 Active Scripts Active Reported Vancomycin HCl 125 Mg/2.5 Ml Syringe 250 Mg PO QID Novolog (Insulin Aspart) 100 Unit/1 Ml Cartridge 6 Unit SQ TIDBFRMEAL Levemir (Insulin Detemir) 100 Unit/1 Ml Vial 14 Unit SQ HS Furosemide 20 Mg Tablet 20 Mg PO DAILY Hydrocodone-Apap 5-300 (Hydrocodone Bit/Acetaminophen) 1 Each Tablet 1 Tab PO PRN Q4HRS PRN Gentamicin Sulfate 0.1% Oint (Gentamicin Sulfate) 15 Gm Oint...g. 1 Sharonda TP PRN Q8HRS PRN DIRECTED BY PHYSICIAN Acetaminophen 325 Mg Tablet 650 Mg PO PRN Q4HRS PRN Milk Of Magnesia (Magnesium Hydroxide) 400 Mg/5 Ml Oral.susp 30 Ml PO PRN DAILY Ondansetron Hcl 4 Mg Tablet 1 Tab PO PRN Q12HR PRN Pantoprazole Sodium 40 Mg Tablet. 1 Tab PO DAILY Flagyl (Metronidazole) 500 Mg Tablet 500 Mg PO TID Vitals/I & O Vital Sign - Last 24 Hours 02/01/17 02/01/17 02/01/17 02/01/17 10:44 15:02 19:10 19:59 Temp 98.6 98.1 99.5 98.6 98.1 99.5 Pulse 50 53 54 Resp 16 16 21 16 B/P 136/63 149/65 148/57 Pulse Ox 99 98 97 98 O2 Delivery Room Air Room Air Room Air Room Air 02/01/17 02/01/17 02/01/17 02/02/17 20:00 22:55 23:30 00:19 Temp 98.9 98.9 Pulse 61 Resp 16 20 16 B/P 127/59 Pulse Ox 98 96 96 O2 Delivery Room Air Room Air Room Air Room Air 02/02/17 02/02/17 02/02/17 02/02/17 00:49 01:36 03:05 04:45 Temp 98.1 98.1 Pulse 48 Resp 16 15 20 16 B/P 124/53 Pulse Ox 96 96 93 93 O2 Delivery Room Air Room Air Room Air 02/02/17 02/02/17 02/02/17 02/02/17 05:46 06:38 07:00 07:30 Temp 98.1 98.1 Pulse 49 Resp 15 16 14 B/P 152/57 Pulse Ox 93 93 97 O2 Delivery Room Air Room Air Room Air Room Air 02/02/17 08:53 O2 Delivery Room Air Intake and Output 02/01/17 02/01/17 02/02/17 15:00 23:00 07:00 Intake Total 1080 ml 1350 ml 240 ml Output Total 500 ml Balance 1080 ml 850 ml 240 ml ADELSO JEFF III DO Feb 02, 2017 09:17
[2017-02-02] MEDS: BENZOCAINE/MENTHOL LOZENGE. PO PRN (10:55)
[2017-02-02 11:00] VITALS: BP 144/68
--- NOTE | 2017-02-02 11:42 | PDOC ---
Renal-Progress Notes Subjective Notes Notes NONE History of Present Illness Hx of present illness BETTER Vitals Vitals Vital Signs Date Time Temp Pulse Resp B/P Pulse Ox O2 Delivery O2 Flow Rate FiO2 02/02/17 11:25 Room Air 02/02/17 11:00 97.6 56 14 144/68 97 97.6 Weight Weight [ ] I.O. Intake and Output Intake and Output 02/02/17 07:00 Intake Total 2670 ml Output Total 500 ml Balance 2170 ml Intake Oral 2670 ml Output Urine Total 500 ml # Voids 5 # Bowel Movements 2 Labs Labs Laboratory Tests Test 02/01/17 16:15 02/01/17 20:57 02/02/17 04:51 02/02/17 04:55 Glucose (Fingerstick) 140mg/dL (70-99) 204mg/dL (70-99) 307mg/dL (70-99) White Blood Count 6.9x10^3/uL (4.0-11.0) Red Blood Count 3.05x10^6/uL (3.50-5.40) Hemoglobin 9.0g/dL (12.0-15.5) Hematocrit 27.4% (36.0-47.0) Mean Corpuscular Volume 90fL (79-100) Mean Corpuscular Hemoglobin 30pg (25-35) Mean Corpuscular Hemoglobin Concent 33g/dL (31-37) Red Cell Distribution Width 14.7% (11.5-14.5) Platelet Count 193x10^3/uL (140-400) Neutrophils (%) (Auto) 49% (31-73) Lymphocytes (%) (Auto) 38% (24-48) Monocytes (%) (Auto) 8% (0-9) Eosinophils (%) (Auto) 4% (0-3) Basophils (%) (Auto) 1% (0-3) Neutrophils # (Auto) 3.4x10^3uL (1.8-7.7) Lymphocytes # (Auto) 2.6x10^3/uL (1.0-4.8) Monocytes # (Auto) 0.5x10^3/uL (0.0-1.1) Eosinophils # (Auto) 0.3x10^3/uL (0.0-0.7) Basophils # (Auto) 0.1x10^3/uL (0.0-0.2) Sodium Level 140mmol/L (136-145) Potassium Level 4.9mmol/L (3.5-5.1) Chloride Level 112mmol/L (98-107) Carbon Dioxide Level 21mmol/L (21-32) Anion Gap 7 (6-14) Blood Urea Nitrogen 9mg/dL (7-20) Creatinine 1.2mg/dL (0.6-1.0) Estimated GFR (Cockcroft-Gault) 54.7 Glucose Level 327mg/dL (70-99) Calcium Level 7.7mg/dL (8.5-10.1) Test 02/02/17 07:18 Glucose (Fingerstick) 303mg/dL (70-99) Micro Micro Microbiology 01/30/17 Blood Culture - Preliminary, Resulted NO GROWTH AFTER 3 DAYS 01/27/17 Urine Culture - Final, Complete 01/27/17 Urine Culture Result 1 (URSULA) - Final, Complete 01/27/17 Antimicrobic Susceptibility - Final, Complete Review of Systems Constitutional: yes: alert, oriented Ears/Nose/Throat: Yes: no symptom reported Eyes: Yes: no symptom reported Pulmonary: Yes no symptom reported Cardiovascular: Yes no symptom reported Musculoskeletal: Yes: no symptom reported Psychiatric/Neurological: Yes: no symptom reported Physical Exam General Appearance: no apparent distress Respiratory: bilateral CTA Heart: S1S2 Abdomen: soft, bowel sounds present Extremities: pulses present Neurology: alert Musculoskeletal: low back pain, Osteoarthritis, Swelling Assessment Assessment IMP GNR UTI MAYNOR-RESOLVED CKD STAGE 3 WITH CR OF 1.3 HYPERKALEMIA-STABLE HYPOGLYCEMIA-RESOLVED PLAN WILL SIGN OFF DANE MATIAS MD Feb 02, 2017 11:42
--- NOTE | 2017-02-02 11:52 | PDOC ---
Infectious Disease Note Subjective Subjective Comfortable Appetite ok ROS ROS GEN: Denies fevers, chills, sweats CV: Denies chest pain RESP: Denies shortness of air GI: Denies n/v/d Vital Sign Vital Signs Vital Signs Date Time Temp Pulse Resp B/P Pulse Ox O2 Delivery O2 Flow Rate FiO2 02/02/17 11:25 Room Air 02/02/17 11:00 97.6 56 14 144/68 97 97.6 Physical Exam PHYSICAL EXAM GENERAL: Sitting in the chair, NAD LUNGS: Clear HEART: S1S2, no gallop, no murmur ABD: Soft, NT EXT: No edema, no cyanosis. 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 clean Labs Lab Laboratory Tests Test 02/01/17 16:15 02/01/17 20:57 02/02/17 04:51 02/02/17 04:55 Glucose (Fingerstick) 140mg/dL (70-99) 204mg/dL (70-99) 307mg/dL (70-99) White Blood Count 6.9x10^3/uL (4.0-11.0) Red Blood Count 3.05x10^6/uL (3.50-5.40) Hemoglobin 9.0g/dL (12.0-15.5) Hematocrit 27.4% (36.0-47.0) Mean Corpuscular Volume 90fL (79-100) Mean Corpuscular Hemoglobin 30pg (25-35) Mean Corpuscular Hemoglobin Concent 33g/dL (31-37) Red Cell Distribution Width 14.7% (11.5-14.5) Platelet Count 193x10^3/uL (140-400) Neutrophils (%) (Auto) 49% (31-73) Lymphocytes (%) (Auto) 38% (24-48) Monocytes (%) (Auto) 8% (0-9) Eosinophils (%) (Auto) 4% (0-3) Basophils (%) (Auto) 1% (0-3) Neutrophils # (Auto) 3.4x10^3uL (1.8-7.7) Lymphocytes # (Auto) 2.6x10^3/uL (1.0-4.8) Monocytes # (Auto) 0.5x10^3/uL (0.0-1.1) Eosinophils # (Auto) 0.3x10^3/uL (0.0-0.7) Basophils # (Auto) 0.1x10^3/uL (0.0-0.2) Sodium Level 140mmol/L (136-145) Potassium Level 4.9mmol/L (3.5-5.1) Chloride Level 112mmol/L (98-107) Carbon Dioxide Level 21mmol/L (21-32) Anion Gap 7 (6-14) Blood Urea Nitrogen 9mg/dL (7-20) Creatinine 1.2mg/dL (0.6-1.0) Estimated GFR (Cockcroft-Gault) 54.7 Glucose Level 327mg/dL (70-99) Calcium Level 7.7mg/dL (8.5-10.1) Test 02/02/17 07:18 Glucose (Fingerstick) 303mg/dL (70-99) Micro BLOOD CULTURE Preliminary NO GROWTH AFTER 3 DAYS Objective Assessment Fever - improved from 01/30. Clinically looks better Cough and congestion - CXR and Flu - neg Hypoglycemia. better E.coli UTI with symptoms but ? contaminated UA. Sens to Rocephin/Quinolones Leukocytosis - better Sulfa allergy ? reaction Heel and buttock wounds not observed as she is planning to go to [facility] Plan Plan of Care Vanc and Levoflox for atypical po vanc BID Blood cults times 2 neg so far Probiotics F/u labs and cults Attending Co-Sign The patient was seen and interviewed as well as examined at the bedside. The chart was reviewed. The case was discussed. Agree with the plan of care. d/c iv vanc JEANNE ORANTES APRN Feb 02, 2017 11:52 BLAINE CISSE MD Feb 02, 2017 13:42
[2017-02-02] MEDS: IV NORMAL SALINE 1000ML BAG 1,000 ML IV SCH (12:59)
[2017-02-02 14:59] VITALS: BP 107/59
[2017-02-02] MEDS: GENTAMICIN 0.1% TOPICAL OINTMENT 15GM TUBE. TP PRN (15:31)
[2017-02-02 19:00] VITALS: BP 122/43
[2017-02-02] MEDS: INSULIN DETEMIR 300 UNITS/3 ML INSULN.PEN. SQ SCH (21:12)
[2017-02-02] MEDS ORDERED: DIPHENHYDRAMINE HCL 25 MG CAPSULE PO ONE (22:00)
[2017-02-02 23:00] VITALS: BP 126/50
[2017-02-03] MEDS: MORPHINE SULFATE 4 MG/ML DISP.SYRIN. IV PRN ×3 (00:03→23:32)
[2017-02-03] MEDS: IV NORMAL SALINE 1000ML BAG 1,000 ML IV SCH ×2 (00:48→14:25)
[2017-02-03 03:00] VITALS: BP 135/57
[2017-02-03] MEDS: LEVOFLOXACIN 500 MG TABLET PO SCH (05:22)
[2017-02-03] MEDS: HYDROCODONE/APAP 5/325MG TABLET. PO PRN ×3 (05:23→21:11)
[2017-02-03 05:41] LABS: BASO # 0.1 x10^3/uL (0.0-0.2); BASO % 1 % (0-3); EOS % 6 % (0-3); HEMATOCRIT 26.5 % (36.0-47.0); HEMOGLOBIN 8.8 g/dL (12.0-15.5); LYMPH # 3.4 x10^3/uL (1.0-4.8); LYMPH % 43 % (24-48); MEAN CORPUSCULAR HEMOGLOBIN 30 pg (25-35); MEAN CORPUSCULAR HGB CONC 33 g/dL (31-37); MEAN CORPUSCULAR VOLUME 90 fL (79-100); MONO % 8 % (0-9); NEUT % 43 % (31-73); PLATELET COUNT 201 x10^3/uL (140-400); RED BLOOD COUNT 2.94 x10^6/uL (3.50-5.40); RED CELL DISTRIBUTION WIDTH 14.6 % (11.5-14.5); WHITE BLOOD COUNT 7.9 x10^3/uL (4.0-11.0)
[2017-02-03 06:06] LABS: CALCIUM 7.5 mg/dL (8.5-10.1); CREATININE 1.2 mg/dL (0.6-1.0); GFR 54.7; POTASSIUM 4.9 mmol/L (3.5-5.1)
[2017-02-03 07:00] VITALS: BP 145/59
[2017-02-03] MEDS: INSULIN ASPART 300 UNITS/3 ML INSULN.PEN SQ SCH ×6 (08:00→17:35)
--- NOTE | 2017-02-03 08:01 | PDOC ---
PROGRESS NOTES Chief Complaint Chief Complaint CC: Altered mental status a/p Hypoglycemia Altered mental status due to Hypoglycemia resoled. Metabolic encephalopathy Dm2, poor control UTI Fever - improved from 01/30. Clinically looks better Heel and buttock wounds not observed as she is planning to go to [facility] Plan on Vancomycin ID following blood surgards improved [facility] follow up with for wound care anticipated DC today if cleared by ID History of Present Illness History of Present Illness no acute events no chest pain Vitals Vitals Vital Signs Date Time Temp Pulse Resp B/P Pulse Ox O2 Delivery O2 Flow Rate FiO2 02/03/17 06:23 18 Room Air 02/03/17 03:00 98.1 69 135/57 99 98.1 Physical Exam General: Alert, Cooperative, No acute distress, Other (oriented 2. ) Heart: Regular rate, Normal S1, Normal S2, No murmurs Lungs: Clear, Other (no wheezing, productive cough ) Abdomen: Soft, No tenderness Extremities: No cyanosis, No edema Skin: No rashes, Other (wound to L heel, R lower leg dressed appropriately ) Labs LABS Laboratory Tests Test 02/02/17 11:45 02/02/17 16:05 02/02/17 20:27 02/03/17 05:15 Glucose (Fingerstick) 237mg/dL (70-99) 259mg/dL (70-99) 163mg/dL (70-99) White Blood Count 7.9x10^3/uL (4.0-11.0) Red Blood Count 2.94x10^6/uL (3.50-5.40) Hemoglobin 8.8g/dL (12.0-15.5) Hematocrit 26.5% (36.0-47.0) Mean Corpuscular Volume 90fL (79-100) Mean Corpuscular Hemoglobin 30pg (25-35) Mean Corpuscular Hemoglobin Concent 33g/dL (31-37) Red Cell Distribution Width 14.6% (11.5-14.5) Platelet Count 201x10^3/uL (140-400) Neutrophils (%) (Auto) 43% (31-73) Lymphocytes (%) (Auto) 43% (24-48) Monocytes (%) (Auto) 8% (0-9) Eosinophils (%) (Auto) 6% (0-3) Basophils (%) (Auto) 1% (0-3) Neutrophils # (Auto) 3.4x10^3uL (1.8-7.7) Lymphocytes # (Auto) 3.4x10^3/uL (1.0-4.8) Monocytes # (Auto) 0.6x10^3/uL (0.0-1.1) Eosinophils # (Auto) 0.5x10^3/uL (0.0-0.7) Basophils # (Auto) 0.1x10^3/uL (0.0-0.2) Sodium Level 146mmol/L (136-145) Potassium Level 4.9mmol/L (3.5-5.1) Chloride Level 115mmol/L (98-107) Carbon Dioxide Level 20mmol/L (21-32) Anion Gap 11 (6-14) Blood Urea Nitrogen 10mg/dL (7-20) Creatinine 1.2mg/dL (0.6-1.0) Estimated GFR (Cockcroft-Gault) 54.7 Glucose Level 189mg/dL (70-99) Calcium Level 7.5mg/dL (8.5-10.1) Test 02/03/17 07:07 Glucose (Fingerstick) 134mg/dL (70-99) Assessment and Plan Assessmemt and Plan Problems Medical Problems: (1) Altered mental state Status: Acute (2) Hypoglycemia Status: Acute (3) UTI (urinary tract infection) Status: Acute Problems: Comment Review of Relevant I have reviewed the following items yariel (where applicable) has been applied. Labs Laboratory Tests Test 02/01/17 09:53 02/01/17 10:00 02/01/17 11:07 02/01/17 16:15 Glucose (Fingerstick) 68mg/dL (70-99) 127mg/dL (70-99) 140mg/dL (70-99) Vancomycin Level Trough 12.5mcg/mL (10.0-20.0) Vancomycin Last Dose Date 01/31/17 Vancomycin Last Dose Time 1000 Test 02/01/17 20:57 02/02/17 04:51 02/02/17 04:55 02/02/17 07:18 Glucose (Fingerstick) 204mg/dL (70-99) 307mg/dL (70-99) 303mg/dL (70-99) White Blood Count 6.9x10^3/uL (4.0-11.0) Red Blood Count 3.05x10^6/uL (3.50-5.40) Hemoglobin 9.0g/dL (12.0-15.5) Hematocrit 27.4% (36.0-47.0) Mean Corpuscular Volume 90fL (79-100) Mean Corpuscular Hemoglobin 30pg (25-35) Mean Corpuscular Hemoglobin Concent 33g/dL (31-37) Red Cell Distribution Width 14.7% (11.5-14.5) Platelet Count 193x10^3/uL (140-400) Neutrophils (%) (Auto) 49% (31-73) Lymphocytes (%) (Auto) 38% (24-48) Monocytes (%) (Auto) 8% (0-9) Eosinophils (%) (Auto) 4% (0-3) Basophils (%) (Auto) 1% (0-3) Neutrophils # (Auto) 3.4x10^3uL (1.8-7.7) Lymphocytes # (Auto) 2.6x10^3/uL (1.0-4.8) Monocytes # (Auto) 0.5x10^3/uL (0.0-1.1) Eosinophils # (Auto) 0.3x10^3/uL (0.0-0.7) Basophils # (Auto) 0.1x10^3/uL (0.0-0.2) Sodium Level 140mmol/L (136-145) Potassium Level 4.9mmol/L (3.5-5.1) Chloride Level 112mmol/L (98-107) Carbon Dioxide Level 21mmol/L (21-32) Anion Gap 7 (6-14) Blood Urea Nitrogen 9mg/dL (7-20) Creatinine 1.2mg/dL (0.6-1.0) Estimated GFR (Cockcroft-Gault) 54.7 Glucose Level 327mg/dL (70-99) Calcium Level 7.7mg/dL (8.5-10.1) Test 02/02/17 11:45 02/02/17 16:05 02/02/17 20:27 02/03/17 05:15 Glucose (Fingerstick) 237mg/dL (70-99) 259mg/dL (70-99) 163mg/dL (70-99) White Blood Count 7.9x10^3/uL (4.0-11.0) Red Blood Count 2.94x10^6/uL (3.50-5.40) Hemoglobin 8.8g/dL (12.0-15.5) Hematocrit 26.5% (36.0-47.0) Mean Corpuscular Volume 90fL (79-100) Mean Corpuscular Hemoglobin 30pg (25-35) Mean Corpuscular Hemoglobin Concent 33g/dL (31-37) Red Cell Distribution Width 14.6% (11.5-14.5) Platelet Count 201x10^3/uL (140-400) Neutrophils (%) (Auto) 43% (31-73) Lymphocytes (%) (Auto) 43% (24-48) Monocytes (%) (Auto) 8% (0-9) Eosinophils (%) (Auto) 6% (0-3) Basophils (%) (Auto) 1% (0-3) Neutrophils # (Auto) 3.4x10^3uL (1.8-7.7) Lymphocytes # (Auto) 3.4x10^3/uL (1.0-4.8) Monocytes # (Auto) 0.6x10^3/uL (0.0-1.1) Eosinophils # (Auto) 0.5x10^3/uL (0.0-0.7) Basophils # (Auto) 0.1x10^3/uL (0.0-0.2) Sodium Level 146mmol/L (136-145) Potassium Level 4.9mmol/L (3.5-5.1) Chloride Level 115mmol/L (98-107) Carbon Dioxide Level 20mmol/L (21-32) Anion Gap 11 (6-14) Blood Urea Nitrogen 10mg/dL (7-20) Creatinine 1.2mg/dL (0.6-1.0) Estimated GFR (Cockcroft-Gault) 54.7 Glucose Level 189mg/dL (70-99) Calcium Level 7.5mg/dL (8.5-10.1) Test 02/03/17 07:07 Glucose (Fingerstick) 134mg/dL (70-99) Laboratory Tests Test 02/02/17 11:45 02/02/17 16:05 02/02/17 20:27 02/03/17 05:15 Glucose (Fingerstick) 237mg/dL (70-99) 259mg/dL (70-99) 163mg/dL (70-99) White Blood Count 7.9x10^3/uL (4.0-11.0) Red Blood Count 2.94x10^6/uL (3.50-5.40) Hemoglobin 8.8g/dL (12.0-15.5) Hematocrit 26.5% (36.0-47.0) Mean Corpuscular Volume 90fL (79-100) Mean Corpuscular Hemoglobin 30pg (25-35) Mean Corpuscular Hemoglobin Concent 33g/dL (31-37) Red Cell Distribution Width 14.6% (11.5-14.5) Platelet Count 201x10^3/uL (140-400) Neutrophils (%) (Auto) 43% (31-73) Lymphocytes (%) (Auto) 43% (24-48) Monocytes (%) (Auto) 8% (0-9) Eosinophils (%) (Auto) 6% (0-3) Basophils (%) (Auto) 1% (0-3) Neutrophils # (Auto) 3.4x10^3uL (1.8-7.7) Lymphocytes # (Auto) 3.4x10^3/uL (1.0-4.8) Monocytes # (Auto) 0.6x10^3/uL (0.0-1.1) Eosinophils # (Auto) 0.5x10^3/uL (0.0-0.7) Basophils # (Auto) 0.1x10^3/uL (0.0-0.2) Sodium Level 146mmol/L (136-145) Potassium Level 4.9mmol/L (3.5-5.1) Chloride Level 115mmol/L (98-107) Carbon Dioxide Level 20mmol/L (21-32) Anion Gap 11 (6-14) Blood Urea Nitrogen 10mg/dL (7-20) Creatinine 1.2mg/dL (0.6-1.0) Estimated GFR (Cockcroft-Gault) 54.7 Glucose Level 189mg/dL (70-99) Calcium Level 7.5mg/dL (8.5-10.1) Test 02/03/17 07:07 Glucose (Fingerstick) 134mg/dL (70-99) Microbiology 01/30/17 Blood Culture - Preliminary, Resulted NO GROWTH AFTER 3 DAYS 01/27/17 Urine Culture - Final, Complete 01/27/17 Urine Culture Result 1 (URSULA) - Final, Complete 01/27/17 Antimicrobic Susceptibility - Final, Complete Medications Current Medications Dextrose 1,000 ml @ 75 mls/hr 1X ONCE IV ; Start 01/27/17 at 10:00; Stop 01/27 at 23:19; Status Cancel Dextrose 25 gm 25 gm 1X ONCE IV Last administered on 01/27/17 10:06; Start at 10:00; Stop 01/27/17 at 10:01; Status DC Dextrose/Sodium Chloride 500 ml @ 0 mls/hr 1X ONCE IV ; Start 01/27/17 at 10:00 ; Stop 01/27/17 at 10:03; Status DC Dextrose/Sodium Chloride (Iv D5% - 1/2 NS) 1,000 ml @ 125 mls/hr 1X ONCE IV Last administered on 01/27/17 10:09; Start 01/27/17 at 10:15; Stop 01/27/17 at 18:14; Status DC Ondansetron HCl (Zofran) 4 mg PRN Q8HRS PRN IV NAUSEA/VOMITING; Start 01/27/17 at 10:45; Stop 01/28/17 at 10:44; Status DC Acetaminophen (Tylenol) 650 mg PRN Q4HRS PRN PO FEVER Last administered on 01/28 04:15; Start 01/27/17 at 10:45; Stop 01/28/17 at 10:44; Status DC Insulin Aspart (Novolog) 0-7 UNITS TIDWMEALS SQ ; Start 01/27/17 at 17:00; Stop 01/27/17 at 17:00; Status DC Dextrose 12.5 gm PRN Q15MIN PRN IV SEE COMMENTS Last administered on 02/01/17 06:29; Start 01/27/17 at 15:30 Ampicillin Sodium/ Sulbactam Sodium (Unasyn) 3 gm Q6HRS IV ; Start 01/27/17 at 18:00; Stop 01/27/17 at 18:00; Status DC Bisacodyl (Dulcolax Supp) 10 mg PRN DAILY PRN RC CONSTIPATION; Start 01/27/17 at 15:30; Stop 01/27/17 at 15:52; Status DC Levothyroxine Sodium (Synthroid) 75 mcg DAILY PO ; Start 01/28/17 at 09:00; Stop 01/28/17 at 09:00; Status DC Magnesium Hydroxide (Milk Of Magnesia) 2,400 mg PRN DAILY PO ; Start 01/27/17 at 15:30; Stop 01/27/17 at 15:52; Status DC Metronidazole (Flagyl) 500 mg TID PO ; Start 01/27/17 at 21:00; Stop 01/27/17 at 21:00; Status DC Mirtazapine (Remeron) 15 mg QHS PO ; Start 01/27/17 at 21:00; Stop 01/27/17 at 21:00; Status DC Pantoprazole Sodium (Protonix) 40 mg BID PO ; Start 01/27/17 at 21:00; Stop 11/03 at 21:00; Status DC Senna/Docusate Sodium (Senna Plus) 2 tab Q12HR PRN PO CONSTIPATION; Start 01/27 at 15:30; Stop 01/27/17 at 15:52; Status DC Zolpidem Tartrate (Ambien) 5 mg QHS PO ; Start 01/27/17 at 21:00; Stop 01/27/17 at 21:00; Status DC Non-Formulary Medication 324 mg DAILY PO ; Start 01/28/17 at 09:00; Stop at 09:00; Status DC Non-Formulary Medication 10 unit QHS SQ ; Start 01/27/17 at 21:00; Stop at 21:00; Status DC Non-Formulary Medication 1 tab QHS PRN PO INSOMNIA; Start 01/27/17 at 15:30; Stop 01/27/17 at 15:52; Status DC Non-Formulary Medication 1 each DAILY PO ; Start 01/28/17 at 09:00; Stop at 09:00; Status DC Ondansetron HCl (Zofran Odt) 4 mg PRN Q6HRS PRN PO NAUSEA/VOMITING; Start 01/27 at 16:00 Non-Formulary Medication 1 tab Q4HRS PRN PO PAIN; Start 01/27/17 at 15:30; Stop 01/27/17 at 15:52; Status DC Non-Formulary Medication 20 mg BID PO ; Start 01/27/17 at 21:00; Stop 01/27/17 at 21:00; Status DC Metronidazole (Flagyl) 500 mg TID PO Last administered on 02/01/17 08:07; Start 01/27/17 at 16:30; Stop 02/01/17 at 09:48; Status DC Acetaminophen (Tylenol) 650 mg PRN Q4HRS PRN PO MILD PAIN / TEMP Last administered on 01/30/17 15:08; Start 01/27/17 at 15:45 Furosemide (Lasix) 20 mg DAILY PO Last administered on 02/02/17 08:53; Start 01/27/17 at 16:30 Gentamicin Sulfate (Garamycin) 1 sharonda PRN Q8HRS PRN TP . Last administered on 15:31; Start 01/27/17 at 21:00 Acetaminophen/ Hydrocodone Bitart (Lortab 5/325) 1 tab PRN Q4HRS PRN PO PAIN Last administered on 02/03/17 05:23; Start 01/27/17 at 16:00 Vancomycin HCl 250 mg [id number] PO Last administered on 01/29/17 20:28; Start at 17:00; Stop 01/30/17 at 08:05; Status DC Pantoprazole Sodium 40 mg 40 mg DAILYAC PO Last administered on 02/02/17 08:53 ; Start 01/28/17 at 07:30 Ceftriaxone Sodium/Sodium Chloride (Rocephin/Iv Sodium Chloride 0.9% 50ml) 50 ml @ 100 mls/hr Q24H IV Last administered on 01/29/17 17:21; Start 01/27/17 at 17:00; Stop 01/30/17 at 07:59; Status DC Morphine Sulfate 4 mg PRN Q2HR PRN IV PAIN Last administered on 02/03/17 00:03 ; Start 01/27/17 at 16:15 Oxycodone/ Acetaminophen 1 tab 1 tab PRN Q6HRS PRN PO MODERATE - SEVERE PAIN Last administered on 02/02/17 21:06; Start 01/27/17 at 16:15 Dextrose/Sodium Chloride (Iv D5% - 1/2 NS) 1,000 ml @ 100 mls/hr Q10H IV Last administered on 01/27/17 20:47; Start 01/28/17 at 02:15; Stop 01/28/17 at 19:30 ; Status DC Insulin Aspart (Novolog) 0-5 UNITS TIDWMEALS SQ Last administered on 02/02/17 17:00; Start 01/28/17 at 12:00 Dextrose 12.5 gm PRN Q15MIN PRN IV SEE COMMENTS; Start 01/28/17 at 11:00; Status UNV Lidocaine/Sodium Bicarbonate 20 ml 20 ml STK-MED ONCE IJ ; Start 01/28/17 at 13: 49; Stop 01/28/17 at 13:50; Status DC Heparin Sodium/ Sodium Chloride 500 ml @ As Directed STK-MED ONCE .ROUTE ; Start 01/28/17 at 13:49; Stop 01/28/17 at 13:50; Status DC Lidocaine/Sodium Bicarbonate (Buffered Lidocaine 1%) 3 ml 1X ONCE IJ Last administered on 01/28/17 14:34; Start 01/28/17 at 14:15; Stop 01/28/17 at 14:16 ; Status DC Heparin Sodium/ Sodium Chloride 40 unit 1X ONCE IV Last administered on 14:34; Start 01/28/17 at 14:15; Stop 01/28/17 at 14:16; Status DC Insulin Aspart (Novolog) 5 units 1X ONCE SQ Last administered on 01/28/17 17: 27; Start 01/28/17 at 17:00; Stop 01/28/17 at 17:01; Status DC Guaifenesin (Robitussin) 200 mg PRN Q4HRS PRN PO COUGH Last administered on 01:22; Start 01/29/17 at 11:30 Throat Lozenges (Cepacol Sore Throat Lozenge) 1 alejo PRN Q2HRS PRN PO SORE THROAT Last administered on 02/02/17 10:55; Start 01/29/17 at 11:30 Guaifenesin 5 ml 5 ml PRN Q4HRS PRN PO COUGH Last administered on 02/01/17 22: 05; Start 01/29/17 at 11:45 Sodium Chloride 1,000 ml @ 75 mls/hr [id number] IV Last administered on 00:48; Start 01/29/17 at 11:45 Cefepime HCl/ Sodium Chloride (Maxipime/Iv Sodium Chloride 0.9% 50ml) 50 ml @ 100 mls/hr Q8HRS IV Last administered on 01/31/17 05:05; Start 01/30/17 at 08: 00; Stop 01/31/17 at 10:17; Status DC Vancomycin HCl 125 mg BID PO Last administered on 02/02/17 21:05; Start at 09:00 Vancomycin HCl (Vanco Per Pharmacy) 1 each PRN DAILY PRN MC SEE COMMENTS Last administered on 02/01/17 10:57; Start 01/30/17 at 08:00; Stop 02/02/17 at 16:53 ; Status DC Levofloxacin (Levaquin) 750 mg 1X ONCE PO Last administered on 01/30/17 10:15 ; Start 01/30/17 at 08:00; Stop 01/30/17 at 08:09; Status DC Lactobacillus Acidophilus 1 tab 1 tab TIDWMEALS PO Last administered on 18:20; Start 01/30/17 at 08:00 Vancomycin HCl 1.75 gm/Sodium Chloride 500 ml @ 250 mls/hr 1X ONCE IV Last administered on 01/30/17 10:17; Start 01/30/17 at 08:30; Stop 01/30/17 at 10:29 ; Status DC Vancomycin HCl/ Sodium Chloride (Iv Sodium Chloride 0.9% 250ml) 250 ml @ 250 mls/hr Q24H IV Last administered on 01/31/17 11:00; Start 01/31/17 at 10:00; Stop 02/01/17 at 10:52; Status DC Vancomycin HCl 1 each 1X ONCE MC Last administered on 02/01/17 09:30; Start 02/01/17 at 09:30; Stop 02/01/17 at 09:31; Status DC Levofloxacin (Levaquin) 500 mg DAILY06 PO Last administered on 02/03/17 05:22 ; Start 01/31/17 at 11:00 Insulin Aspart (Novolog) 5 units TIDAC SQ Last administered on 01/31/17 17:22 ; Start 01/31/17 at 17:22; Stop 02/01/17 at 11:03; Status DC Dextrose 12.5 gm PRN Q15MIN PRN IV SEE COMMENTS; Start 01/31/17 at 17:15 Insulin Detemir 14 units 14 units QHS SQ Last administered on 01/31/17 21:29; Start 01/31/17 at 21:00; Stop 02/01/17 at 11:03; Status DC Vancomycin HCl/ Sodium Chloride (Iv Sodium Chloride 0.9% 250ml) 250 ml @ 250 mls/hr Q18H IV Last administered on 02/02/17 05:23; Start 02/01/17 at 11:00; Stop 02/02/17 at 13:42; Status DC Insulin Aspart (Novolog) 3 units TIDAC SQ Last administered on 02/02/17 16:30 ; Start 02/01/17 at 11:30 Insulin Detemir (Levemir) 10 units QHS SQ Last administered on 02/02/17 21:12 ; Start 02/01/17 at 21:00 Diphenhydramine HCl (Benadryl) 25 mg 1X ONCE PO Last administered on 22:58; Start 02/02/17 at 22:00; Stop 02/02/17 at 22:01; Status DC Active Scripts Active Reported Vancomycin HCl 125 Mg/2.5 Ml Syringe 250 Mg PO QID Novolog (Insulin Aspart) 100 Unit/1 Ml Cartridge 6 Unit SQ TIDBFRMEAL Levemir (Insulin Detemir) 100 Unit/1 Ml Vial 14 Unit SQ HS Furosemide 20 Mg Tablet 20 Mg PO DAILY Hydrocodone-Apap 5-300 (Hydrocodone Bit/Acetaminophen) 1 Each Tablet 1 Tab PO PRN Q4HRS PRN Gentamicin Sulfate 0.1% Oint (Gentamicin Sulfate) 15 Gm Oint...g. 1 Sharonda TP PRN Q8HRS PRN DIRECTED BY PHYSICIAN Acetaminophen 325 Mg Tablet 650 Mg PO PRN Q4HRS PRN Milk Of Magnesia (Magnesium Hydroxide) 400 Mg/5 Ml Oral.susp 30 Ml PO PRN DAILY Ondansetron Hcl 4 Mg Tablet 1 Tab PO PRN Q12HR PRN Pantoprazole Sodium 40 Mg Tablet. 1 Tab PO DAILY Flagyl (Metronidazole) 500 Mg Tablet 500 Mg PO TID Vitals/I & O Vital Sign - Last 24 Hours 02/02/17 02/02/17 02/02/17 02/02/17 08:15 08:53 10:44 11:00 Temp 97.6 97.6 Pulse 56 Resp 14 B/P 144/68 Pulse Ox 97 O2 Delivery Room Air Room Air Room Air Room Air 02/02/17 02/02/17 02/02/17 02/02/17 12:59 14:59 15:30 18:20 Temp 98.3 98.3 Pulse 81 Resp 14 B/P 107/59 Pulse Ox 100 O2 Delivery Room Air Room Air Room Air Room Air 02/02/17 02/02/17 02/02/17 02/02/17 19:00 20:00 21:06 22:41 Temp 98.9 98.9 Pulse 65 Resp 18 18 20 B/P 122/43 Pulse Ox 96 O2 Delivery Room Air Room Air Room Air Room Air 02/02/17 02/03/17 02/03/17 02/03/17 23:00 00:03 03:00 05:23 Temp 98.9 98.1 98.9 98.1 Pulse 78 69 Resp 18 18 20 18 B/P 126/50 135/57 Pulse Ox 99 99 O2 Delivery Room Air Room Air Room Air Room Air 02/03/17 02/03/17 05:23 06:23 Resp 18 18 O2 Delivery Room Air Room Air Intake and Output 02/02/17 02/02/17 02/03/17 15:00 23:00 07:00 Intake Total 210 ml 120 ml Output Total 400 ml 500 ml Balance -190 ml -380 ml VERENICE ALEGRE MD Feb 03, 2017 08:01
[2017-02-03] MEDS: FUROSEMIDE 20 MG TABLET PO SCH (08:47)
[2017-02-03] MEDS: LACTOBACILLUS ACIDOPH & BULGAR 1 TABLET. PO SCH ×3 (08:47→17:28)
[2017-02-03] MEDS: PANTOPRAZOLE 40 MG TABLET. PO SCH (08:47)
[2017-02-03] MEDS: OXYCODONE/APAP 5/325 TABLET. PO PRN ×2 (08:47→17:28)
[2017-02-03] MEDS: VANCOMYCIN 125 MG/2.5 ML ORAL SOLUTION. PO SCH ×2 (09:03→21:12)
[2017-02-03 11:00] VITALS: BP 141/62
[2017-02-03] MEDS ORDERED: DIPHENHYDRAMINE HCL 25 MG CAPSULE PO ONE (12:15)
--- NOTE | 2017-02-03 12:20 | PDOC ---
Infectious Disease Note Subjective Subjective Comfortable Appetite ok Wants to go home ROS ROS GEN: Denies fevers, chills, sweats CV: Denies chest pain RESP: Denies shortness of air, cough GI: Denies n/v/d Vital Sign Vital Signs Vital Signs Date Time Temp Pulse Resp B/P Pulse Ox O2 Delivery O2 Flow Rate FiO2 02/03/17 11:00 98.4 87 18 141/62 97 Room Air 98.4 Physical Exam PHYSICAL EXAM GENERAL: Propped up in bed, relaxed appearance HEENT: OC/OP clear LUNGS: Clear HEART: S1S2, no gallop, no murmur ABD: Soft, NT EXT: No edema, no cyanosis. Feet are bandaged AERIAL SPRAYER: Alert, oriented x 3, no focal neurologic deficit SKIN: No rash LUE-PICC. clean Labs Lab Laboratory Tests Test 02/02/17 16:05 02/02/17 20:27 02/03/17 05:15 02/03/17 07:07 Glucose (Fingerstick) 259mg/dL (70-99) 163mg/dL (70-99) 134mg/dL (70-99) White Blood Count 7.9x10^3/uL (4.0-11.0) Red Blood Count 2.94x10^6/uL (3.50-5.40) Hemoglobin 8.8g/dL (12.0-15.5) Hematocrit 26.5% (36.0-47.0) Mean Corpuscular Volume 90fL (79-100) Mean Corpuscular Hemoglobin 30pg (25-35) Mean Corpuscular Hemoglobin Concent 33g/dL (31-37) Red Cell Distribution Width 14.6% (11.5-14.5) Platelet Count 201x10^3/uL (140-400) Neutrophils (%) (Auto) 43% (31-73) Lymphocytes (%) (Auto) 43% (24-48) Monocytes (%) (Auto) 8% (0-9) Eosinophils (%) (Auto) 6% (0-3) Basophils (%) (Auto) 1% (0-3) Neutrophils # (Auto) 3.4x10^3uL (1.8-7.7) Lymphocytes # (Auto) 3.4x10^3/uL (1.0-4.8) Monocytes # (Auto) 0.6x10^3/uL (0.0-1.1) Eosinophils # (Auto) 0.5x10^3/uL (0.0-0.7) Basophils # (Auto) 0.1x10^3/uL (0.0-0.2) Sodium Level 146mmol/L (136-145) Potassium Level 4.9mmol/L (3.5-5.1) Chloride Level 115mmol/L (98-107) Carbon Dioxide Level 20mmol/L (21-32) Anion Gap 11 (6-14) Blood Urea Nitrogen 10mg/dL (7-20) Creatinine 1.2mg/dL (0.6-1.0) Estimated GFR (Cockcroft-Gault) 54.7 Glucose Level 189mg/dL (70-99) Calcium Level 7.5mg/dL (8.5-10.1) Test 02/03/17 11:00 Glucose (Fingerstick) 185mg/dL (70-99) Micro BLOOD CULTURE Preliminary NO GROWTH AFTER 3 DAYS Objective Assessment Fever - improved from 01/30. Clinically looks better Cough and congestion - CXR and Flu - neg Hypoglycemia. better E.coli UTI with symptoms but ? contaminated UA. Sens to Rocephin/Quinolones Leukocytosis - better Sulfa allergy ? reaction Heel and buttock wounds not observed as she is planning to go to Plan Plan of Care Levoflox po vanc BID Blood cults times 2 neg so far Probiotics F/u labs and cults OK to discharge from ID standpoint Attending Co-Sign The patient was seen and interviewed as well as examined at the bedside. The chart was reviewed. The case was discussed. Agree with the plan of care. JEANNE ORANTES APRN Feb 03, 2017 12:20 BLAINE CISSE MD Feb 03, 2017 12:23
[2017-02-03 15:00] VITALS: BP 115/56
[2017-02-03] MEDS: GUAIFENESIN DM 200MG/20MG 10 ML SYRUP. PO PRN (17:27)
[2017-02-03 19:00] VITALS: BP 126/62
[2017-02-03] MEDS: INSULIN DETEMIR 300 UNITS/3 ML INSULN.PEN. SQ SCH (21:17)
[2017-02-03 23:00] VITALS: BP 135/67
[2017-02-04] MEDS: IV NORMAL SALINE 1000ML BAG 1,000 ML IV SCH ×3 (02:01→21:14)
[2017-02-04] MEDS: LEVOFLOXACIN 500 MG TABLET PO SCH (04:59)
[2017-02-04] MEDS: OXYCODONE/APAP 5/325 TABLET. PO PRN ×3 (05:01→16:42)
[2017-02-04 05:11] LABS: BASO # 0.1 x10^3/uL (0.0-0.2); BASO % 1 % (0-3); EOS % 5 % (0-3); HEMATOCRIT 27.5 % (36.0-47.0); HEMOGLOBIN 8.8 g/dL (12.0-15.5); LYMPH # 3.5 x10^3/uL (1.0-4.8); LYMPH % 40 % (24-48); MEAN CORPUSCULAR HEMOGLOBIN 30 pg (25-35); MEAN CORPUSCULAR HGB CONC 32 g/dL (31-37); MEAN CORPUSCULAR VOLUME 93 fL (79-100); MONO % 7 % (0-9); NEUT % 47 % (31-73); PLATELET COUNT 212 x10^3/uL (140-400); RED BLOOD COUNT 2.97 x10^6/uL (3.50-5.40); WHITE BLOOD COUNT 8.8 x10^3/uL (4.0-11.0)
[2017-02-04 05:25] LABS: CALCIUM 7.7 mg/dL (8.5-10.1); CREATININE 1.1 mg/dL (0.6-1.0); GFR 60.5; POTASSIUM 4.5 mmol/L (3.5-5.1)
[2017-02-04 07:00] VITALS: BP 143/62
[2017-02-04] MEDS: INSULIN ASPART 300 UNITS/3 ML INSULN.PEN SQ SCH ×7 (07:30→16:47)
[2017-02-04] MEDS: VANCOMYCIN 125 MG/2.5 ML ORAL SOLUTION. PO SCH ×2 (08:36→21:09)
[2017-02-04] MEDS: LACTOBACILLUS ACIDOPH & BULGAR 1 TABLET. PO SCH ×3 (08:36→16:42)
[2017-02-04] MEDS: FUROSEMIDE 20 MG TABLET PO SCH (08:36)
[2017-02-04] MEDS: PANTOPRAZOLE 40 MG TABLET. PO SCH (08:36)
[2017-02-04] MEDS ORDERED: INSU100I17 SQ (09:42)
[2017-02-04] MEDS ORDERED: Vancomycin Hcl PO (09:42)
[2017-02-04] MEDS ORDERED: INSU100I27 SQ (09:42)
--- NOTE | 2017-02-04 09:45 | PDOC ---
Infectious Disease Note Subjective Subjective Comfortable Appetite ok Wants to go home ROS ROS GEN: Denies fevers, chills, sweats HEENT: Denies blurred vision, sore throat CV: Denies chest pain RESP: Denies shortness of air, cough GI: Denies n/v/d NEURO: Denies confusion, dizziness MSK: Denies weakness, joint pain/swelling Vital Sign Vital Signs Vital Signs Date Time Temp Pulse Resp B/P Pulse Ox O2 Delivery O2 Flow Rate FiO2 02/04/17 08:36 Room Air 02/04/17 07:00 97.9 53 20 143/62 99 97.9 Physical Exam PHYSICAL EXAM GENERAL: NAD, Alert HEENT: PERRL, OC/OP NECK: Supple, no JVD, no LN LUNGS: Clear HEART: S1S2, no gallop, no murmur ABD: Soft, NT, no organomegaly, no rebound EXT: No edema, no cyanosis VIDEO MANAGER: Alert, oriented x 3, no focal neurologic deficit SKIN: No rash IV: ok Labs Lab Laboratory Tests Test 02/03/17 11:00 02/03/17 16:50 02/03/17 21:30 02/04/17 04:50 Glucose (Fingerstick) 185mg/dL (70-99) 180mg/dL (70-99) 140mg/dL (70-99) White Blood Count 8.8x10^3/uL (4.0-11.0) Red Blood Count 2.97x10^6/uL (3.50-5.40) Hemoglobin 8.8g/dL (12.0-15.5) Hematocrit 27.5% (36.0-47.0) Mean Corpuscular Volume 93fL (79-100) Mean Corpuscular Hemoglobin 30pg (25-35) Mean Corpuscular Hemoglobin Concent 32g/dL (31-37) Red Cell Distribution Width 15.0% (11.5-14.5) Platelet Count 212x10^3/uL (140-400) Neutrophils (%) (Auto) 47% (31-73) Lymphocytes (%) (Auto) 40% (24-48) Monocytes (%) (Auto) 7% (0-9) Eosinophils (%) (Auto) 5% (0-3) Basophils (%) (Auto) 1% (0-3) Neutrophils # (Auto) 4.1x10^3uL (1.8-7.7) Lymphocytes # (Auto) 3.5x10^3/uL (1.0-4.8) Monocytes # (Auto) 0.6x10^3/uL (0.0-1.1) Eosinophils # (Auto) 0.5x10^3/uL (0.0-0.7) Basophils # (Auto) 0.1x10^3/uL (0.0-0.2) Sodium Level 144mmol/L (136-145) Potassium Level 4.5mmol/L (3.5-5.1) Chloride Level 114mmol/L (98-107) Carbon Dioxide Level 21mmol/L (21-32) Anion Gap 9 (6-14) Blood Urea Nitrogen 10mg/dL (7-20) Creatinine 1.1mg/dL (0.6-1.0) Estimated GFR (Cockcroft-Gault) 60.5 Glucose Level 122mg/dL (70-99) Calcium Level 7.7mg/dL (8.5-10.1) Objective Assessment Fever - improved from 01/30. Clinically looks better Cough and congestion - CXR and Flu - neg Hypoglycemia. better E.coli UTI with symptoms but ? contaminated UA. Sens to Rocephin/Quinolones Leukocytosis - better Sulfa allergy ? reaction Heel and buttock wounds not observed as she is planning to go to Plan Plan of Care d/c Levoflox po vanc BID for 1 wk Blood cults times 2 neg so far Probiotics F/u labs and cults OK to discharge from ID standpoint BLAINE CISSE MD Feb 04, 2017 09:45
[2017-02-04] MEDS: MORPHINE SULFATE 4 MG/ML DISP.SYRIN. IV PRN (10:41)
[2017-02-04] MEDS ORDERED: DIPHENHYDRAMINE HCL 25 MG CAPSULE PO ONE (10:45)
[2017-02-04 10:51] VITALS: BP 144/63
[2017-02-04] MEDS: GUAIFENESIN 200 MG/10 ML LIQUID. PO PRN (11:37)
--- NOTE | 2017-02-04 13:47 | PDOC3 ---
Discharge Summary [facility] Date of Admission: Jan 27, 2017 Discharge Date: Feb 04, 2017 Admitting Diagnosis Hypoglycemia Altered mental status due to Hypoglycemia resoled. Metabolic encephalopathy Dm2, poor control UTI Fever - improved from 01/30. Clinically looks better Heel and buttock wounds not observed as she is planning to go to Problems: Final Diagnosis CONSULTS id Brief Hospital Course Ms. Jaquez is a 66 old F, was recently dignosed with cdiff on vanco, came for AMS, which is likely 2/2 hypoglycemia. Pt improved for mental status, has loose BM sometimes, now decrease to vanco bid as per ID for another 1 week. Pt [place] 2.[place]h away, waiting for her daughter to drive her home. she was also on levaquin for possible UTI, dc today since treated for 1 week. pt refused to go to SNF, also HH. SW on board dc time 40min General: Alert, Cooperative, No acute distress, Other (oriented 2. ) Heart: Regular rate, Normal S1, Normal S2, No murmurs Lungs: Clear, Other (no wheezing, productive cough ) Abdomen: Soft, No tenderness Extremities: No cyanosis, No edema Skin: No rashes, Other (wound to L heel, R lower leg dressed appropriately ) Problems: Disposition home CONDITION AT DISCHARGE: Improved, Stable Diet ADA Scheduled ([Vancomycin Hcl]) 125 MG PO BID Furosemide (Furosemide) 20 MG PO DAILY (Reported) Insulin Aspart (Novolog Flexpen) 3 UNITS SQ TIDAC Insulin Detemir (Levemir Flextouch) 10 UNITS SQ QHS Magnesium Hydroxide (Milk Of Magnesia) 30 ML PO PRN DAILY (Reported) Pantoprazole Sodium (Pantoprazole Sodium) 1 TAB PO DAILY (Reported) Scheduled PRN Acetaminophen (Acetaminophen) 650 MG PO PRN Q4HRS PRN PRN PAIN (Reported) Gentamicin Sulfate (Gentamicin Sulfate 0.1% Oint) 1 SHANE TP PRN Q8HRS PRN PRN SEE COMMENTS (Reported) Hydrocodone Bit/Acetaminophen (Hydrocodone-Apap 5-300) 1 TAB PO PRN Q4HRS PRN PRN PAIN (Reported) Ondansetron Hcl (Ondansetron Hcl) 1 TAB PO PRN Q12HR PRN PRN NAUSEA/VOMITING ( Reported) Discontinued Medications Insulin Aspart (Novolog) 6 UNIT SQ TIDBFRMEAL (Reported) Insulin Detemir (Levemir) 14 UNIT SQ HS (Reported) Metronidazole (Flagyl) 500 MG PO TID (Reported) Vancomycin HCl (Vancomycin HCl) 250 MG PO QID (Reported) Follow Up pcp and wound care clinic next week JUAN JIMENEZ MD Feb 04, 2017 13:47
[2017-02-04] MEDS: LOPERAMIDE 2 MG CAPSULE PO PRN ×2 (14:48→20:01)
[2017-02-04] MEDS: HYDROCODONE/APAP 5/325MG TABLET. PO PRN ×2 (14:54→20:02)
[2017-02-04 14:59] VITALS: BP 142/75
[2017-02-04 19:00] VITALS: BP 142/69
[2017-02-04] MEDS: DIPHENHYDRAMINE HCL 25 MG CAPSULE PO PRN (20:00)
[2017-02-04] MEDS: INSULIN DETEMIR 300 UNITS/3 ML INSULN.PEN. SQ SCH (21:14)
[2017-02-04 23:00] VITALS: BP 141/68
[2017-02-05] MEDS: OXYCODONE/APAP 5/325 TABLET. PO PRN ×2 (00:14→08:21)
[2017-02-05 03:00] VITALS: BP 126/64
[2017-02-05] MEDS: HYDROCODONE/APAP 5/325MG TABLET. PO PRN ×2 (05:43→10:26)
[2017-02-05 07:00] VITALS: BP 133/92
[2017-02-05] MEDS: INSULIN ASPART 300 UNITS/3 ML INSULN.PEN SQ SCH ×2 (08:00→08:24)
[2017-02-05] MEDS: LOPERAMIDE 2 MG CAPSULE PO PRN (08:21)
[2017-02-05] MEDS: VANCOMYCIN 125 MG/2.5 ML ORAL SOLUTION. PO SCH (08:21)
[2017-02-05] MEDS: FUROSEMIDE 20 MG TABLET PO SCH (08:21)
[2017-02-05] MEDS: LACTOBACILLUS ACIDOPH & BULGAR 1 TABLET. PO SCH (08:21)
[2017-02-05] MEDS: PANTOPRAZOLE 40 MG TABLET. PO SCH (08:21)
[2017-02-05] MEDS: DIPHENHYDRAMINE HCL 25 MG CAPSULE PO PRN (08:33)
[2017-02-05 10:15] VITALS: BP 99/68
--- NOTE | 2017-02-05 12:26 | PDOC3 ---
Discharge Summary [facility] Date of Admission: Jan 27, 2017 Discharge Date: Feb 05, 2017 Admitting Diagnosis Hypoglycemia Altered mental status due to Hypoglycemia resoled. Metabolic encephalopathy Dm2, poor control UTI Fever - improved from 01/30. Clinically looks better Heel and buttock wounds not observed as she is planning to go to Problems: Final Diagnosis CONSULTS id Brief Hospital Course Problems: Final Diagnosis CONSULTS id Brief Hospital Course Ms. Jaquez is a 66 old F, was recently dignosed with cdiff on vanco, came for AMS, which is likely 2/2 hypoglycemia. Pt improved for mental status, has loose BM sometimes, now decrease to vanco bid as per ID for another 1 week. Pt [place], waiting for her daughter to drive her home. she was also on levaquin for possible UTI, dc today since treated for 1 week. pt refused to go to SNF at the [facility] , the she changed her mind later, SW on board SNF TODAY dc time 40min General: Alert, Cooperative, No acute distress, Other (oriented 2. ) Heart: Regular rate, Normal S1, Normal S2, No murmurs Lungs: Clear, Other (no wheezing, productive cough ) Abdomen: Soft, No tenderness Extremities: No cyanosis, No edema Skin: No rashes, Other (wound to L heel, R lower leg dressed appropriately ) Problems: Disposition snf CONDITION AT DISCHARGE: Improved, Stable Diet ada Scheduled ([Vancomycin Hcl]) 125 MG PO BID Furosemide (Furosemide) 20 MG PO DAILY (Reported) Insulin Aspart (Novolog Flexpen) 3 UNITS SQ TIDAC Insulin Detemir (Levemir Flextouch) 10 UNITS SQ QHS Magnesium Hydroxide (Milk Of Magnesia) 30 ML PO PRN DAILY (Reported) Pantoprazole Sodium (Pantoprazole Sodium) 1 TAB PO DAILY (Reported) Scheduled PRN Acetaminophen (Acetaminophen) 650 MG PO PRN Q4HRS PRN PRN PAIN (Reported) Gentamicin Sulfate (Gentamicin Sulfate 0.1% Oint) 1 SHANE TP PRN Q8HRS PRN PRN SEE COMMENTS (Reported) Hydrocodone Bit/Acetaminophen (Hydrocodone-Apap 5-300) 1 TAB PO PRN Q4HRS PRN PRN PAIN (Reported) Ondansetron Hcl (Ondansetron Hcl) 1 TAB PO PRN Q12HR PRN PRN NAUSEA/VOMITING ( Reported) Discontinued Medications Insulin Aspart (Novolog) 6 UNIT SQ TIDBFRMEAL (Reported) Insulin Detemir (Levemir) 14 UNIT SQ HS (Reported) Metronidazole (Flagyl) 500 MG PO TID (Reported) Vancomycin HCl (Vancomycin HCl) 250 MG PO QID (Reported) Follow Up pcp in 2 weeks JUAN JIMENEZ MD Feb 05, 2017 12:26
== END 2017-02-05 11:21 | DRG 682 ==
LOC: ER 08:24 → 5 SOUTH 10:44
PROVIDERS: ADMIT Internal Medicine; ATTEND Internal Medicine
PROC: 30233N1 Transfusion of Nonautologous Red Blood Cells into Peripheral Vein, Percutaneous Approach (ICD-10-PCS; principal; 2017-01-28)
PROC: 02H633Z Insertion of Infusion Device into Right Atrium, Percutaneous Approach (ICD-10-PCS; 2017-01-28)
PROC: B2141ZZ Fluoroscopy of Right Heart using Low Osmolar Contrast (ICD-10-PCS; 2017-01-28)
PROC: B244ZZZ Ultrasonography of Right Heart (ICD-10-PCS; 2017-01-28)
DX: N17.0 Acute kidney failure with tubular necrosis (principal); G93.41 Metabolic encephalopathy; E43 Unspecified severe protein-calorie malnutrition; A04.7 Enterocolitis due to Clostridium difficile; N39.0 Urinary tract infection, site not specified; B96.89 Other specified bacterial agents as the cause of diseases classified elsewhere; D63.1 Anemia in chronic kidney disease; E03.9 Hypothyroidism, unspecified; E11.22 Type 2 diabetes mellitus with diabetic chronic kidney disease; E11.42 Type 2 diabetes mellitus with diabetic polyneuropathy; E11.649 Type 2 diabetes mellitus with hypoglycemia without coma; E78.5 Hyperlipidemia, unspecified; E87.5 Hyperkalemia; F03.90 Unspecified dementia, unspecified severity, without behavioral disturbance, psychotic disturbance, mood disturbance, and anxiety; I12.9 Hypertensive chronic kidney disease with stage 1 through stage 4 chronic kidney disease, or unspecified chronic kidney disease; Z96.659 Presence of unspecified artificial knee joint; K21.9 Gastro-esophageal reflux disease without esophagitis; N18.3 Chronic kidney disease, stage 3 (moderate); Z87.19 Personal history of other diseases of the digestive system; Z88.2 Allergy status to sulfonamides; Z68.31 Body mass index [BMI] 31.0-31.9, adult; Z88.6 Allergy status to analgesic agent; Z91.041 Radiographic dye allergy status; Z89.429 Acquired absence of other toe(s), unspecified side; Z90.49 Acquired absence of other specified parts of digestive tract; Z90.710 Acquired absence of both cervix and uterus; Z79.899 Other long term (current) drug therapy
CPT/HCPCS: 36415; 36569; 71010; 76937; 77001; 80048; 80053; 80202; 81001; 82947; 83036; 84484; 85007; 85014; 85018; 85027; 86850; 86870; 86900; 86901; 86902; 86922; 87040; 87086; 87186; 87324; 87641; 87804; 93005; 96374; C1751; C1892; J0692; J0696; J1815; J2270; J3370; J7030; J7040; J7042; J7050; P9016; Q0163; 97116; 97530; 99291-25